=== PATIENT | female | born 1960 | race Caucasian/White ===

== ENCOUNTER → 2017-01-13 | Outpatient (CLI) | payer OTHER ==
[2017-01-13 17:48] LABS: GLUCOSE,FASTING 121 mg/dl (70-99)
[2017-01-14 06:24] LABS: ESTIMATED AVERAGE GLUCOSE 137 mg/dl; HA1C FLAG Normal (Normal)
== END | disposition home or self-care (01) ==
LOC: C.LABBFT 12:29
PROVIDERS: ATTEND Psychiatry & Neurology Psychiatry
DX: F25.0 Schizoaffective disorder, bipolar type (principal); F41.1 Generalized anxiety disorder; Z79.899 Other long term (current) drug therapy

== ENCOUNTER 2021-09-23 16:58 | Inpatient (IN) ==
[2021-09-23] MEDS ORDERED: ONDANSETRON INJ 2 MG/ML 2 ML VIAL IV STA (17:57)
--- NOTE | 2021-09-23 18:03 | Emergency Department Note ---
Impression & Plan SOB (shortness of breath), Abdominal pain, Ascites, Liver metastases, Malignancy, Tachycardia ED Provider Note NAME: CLOVIS MOORE AGE: 61 SEX: F : 1960 ARRIVES VIA: Walk-In INFORMANT: [Patient] ED PROVIDER(S): [Adarsh Harper MD] CHIEF COMPLAINT: Shortness of breath, abdominal distention HISTORY OF PRESENT ILLNESS: The patient is a 61-year-old female who presents to the ED with complaints of 1 month of symptoms. She has developed abdominal distention, diarrhea, urinary and stool incontinence. She feels bloated. She has had nausea and vomiting. I n the last week or so, she has developed some shortness of breath. She did test negative for Covid as an outpatient. She has not had fever. She is concerned about her liver as the cause of her symptoms. Of note, the patient only speaks Latvian and the translation line was used. REVIEW OF SYSTEMS: See HPI for pertinent positives and negatives. A total of ten systems were reviewed and were otherwise negative. PMHx/PSHx: See Below SOCIAL HISTORY: See Below. PHYSICAL EXAM: GENERAL: Patient is in no acute distress. HEENT: No acute trauma, normocephalic atraumatic, mucous membranes moist, no nasal congestion, no scleral icterus. NECK: No stridor, no adenopathy, no meningismus, trachea is midline. LUNGS: Increased respiratory rate. The patient does seem short of breath with speaking. Lungs are clear bilaterally and equal bilaterally. HEART: Mildly tachycardic, regular rhythm, no murmurs. ABDOMEN: Firm and distended abdomen. There is some dullness with percussion. Diffusely mildly tender. EXTREMITIES: No cyanosis or edema, full range of motion of all the joints wit hout pain or difficulty, no signs for acute trauma. NEUROLOGIC: Oriented x 3, no acute motor or sensory deficits, no focal weakness. SKIN: No rash, no jaundice, no diaphoresis. DIFFERENTIAL DIAGNOSIS: Appendicitis, ovarian cyst, ovarian torsion, ectopic , malignancy, ascites, UTI, obstruction, mesenteric ischemia, aortic pathology, inflammatory bowel disease, renal colic, PUD, pancreatitis, biliary pathology, hernia, volvulus, constipation, as well as other pathologies. EMERGENCY DEPARTMENT COURSE/PROCEDURES: ECG: Indication was shortness of breath. The ECG shows a sinus tachycardia with a rate of 117. There are inverted T waves in the inferior and lateral leads. No ST elevation. No PVCs. The QTc is 457. Compared to an ECG from 04 April 1997, the inverted T wave findings have progressed. The rate has increased. Continuous Cardiac Monitoring: An order was placed for continuous cardiac monitoring. The monitor shows a rate of 110 with sinus tachycardia. Critical Care Note: I have personally spent 48 minutes of critical care time in the direct management of this patient. This includes bedside care, interpretation of diagnostic studies, and testing, discussion with consultants, patient, and family members, and other required patient management activities. This 48 minutes is in excess of all separately billable procedures. MEDICAL DECISION MAKING: There is a mild leukocytosis, this could be consistent with infection or the stress of her situation. There is a normal hemoglobin and platelet count. No coagulopathy. Potassium was a bit low at 3.2, not in need of emergent correction. No renal failure. Lactic acid level was elevated consistent with dehydration or possibly infection. Liver enzyme elevation was noted. No evidence for pancreatitis. The patient appeared to be in a euthyroid state. ECG showed a sinus tachycardia, no ST elevation. Cardiac enzyme testing x1 is not consistent with acute cardiac injury. Urinalysis shows some contamination, no obvious infection. Covid testing returned negative. Chest x-ray did not show pneumonia or CHF. No free air. Abdominal and pelvis CT showed ascites as well as liver mets. A probable ovarian cancer was seen. No bowel obstruction. No free air. The patient presented with significant abdominal distention, shortness of breath. She complained of loss of her bowel and urine. The patient had a Gillespie catheter placed. She did not have any significant urinary retention. She received IV Zofran for nausea. The patient is in need of a hospital stay. She appears to have a malignancy as the cause of her complaints. Ovarian malignancy was a real concern with metastases to the liver. Further oncologic work-up is warranted. I suspect her difficulty breathing is actually secondary to diaphragm elevation from her ascites and abdominal distention. I spoke to the patient through the translation line. I did speak with the home health care case manager. The on-call hospitalist was consulted. Past Med/Surg History Medical History Impaired fasting glucose Morbid obesity Schizophrenia Tinnitus Social History Smoking Status: Never smoker Feels Safe at Home: Yes Allergies Allergies Allergy/AdvReac Type Severity Reaction Status Date / Time No Known Drug Allergies Allergy Unknown Verified 09/23/21 17:56 Home Meds Home Medications Medication Instructions Recorded Confirmed fluphenazine HCl 5 mg tablet 5 mg PO AMHS tab 12/10/18 09/23/21 trihexyphenidyl 5 mg tablet 7.5 mg PO DAILY tab 12/10/18 09/23/21 Results & Data (ED) Vital Signs Vital Signs - 24 hr 09/23/21 17:00 09/23/21 18:03 09/23/21 18:23 Temperature 36.8 C Temperature Source Temporal Artery Scan Pulse Rate 110 H 120 H Pulse Rate [Apical] Pulse Rate from SpO2 Sensor Pulse Rhythm Regular Pulse Rhythm [Apical] Pulse Strength Normal Pulse Strength [Apical] Respiratory Rate 18 27 H Respiratory Effort / Characteristics Non-Labored Spontaneous Respiratory Depth Normal Respiratory Pattern Regular Blood Pressure 154/92 H Blood Pressure [Right Arm] Blood Pressure Mean 112 Blood Pressure Mean [Right Arm] Blood Pressure Position Sitting Blood Pressure Position [Right Arm] Pulse Oximetry 96 95 Oxygen Delivery Method Room Air Room Air Oxygen Flow Rate Sepsis Recent Fever Within 48 Hours No Sepsis New/Unexplained Change in Mental Status N/A Sepsis Action Taken by Nursing No Action Required 09/23/21 18:30 09/23/21 18:40 09/23/21 18:50 Temperature Temperature Source Pulse Rate 114 H 113 H 111 H Pulse Rate [Apical] Pulse Rate from SpO2 Sensor 112 H 114 H Pulse Rhythm Pulse Rhythm [Apical] Pulse Strength Pulse Strength [Apical] Respiratory Rate 34 H 26 H 21 Respiratory Effort / Characteristics Non-Labored Respiratory Depth Normal Respiratory Pattern Regular Blood Pressure Blood Pressure [Right Arm] Blood Pressure Mean Blood Pressure Mean [Right Arm] Blood Pressure Position Blood Pressure Position [Right Arm] Pulse Oximetry 95 96 Oxygen Delivery Method Room Air Oxygen Flow Rate 0 Sepsis Recent Fever Within 48 Hours Sepsis New/Unexplained Change in Mental Status Sepsis Action Taken by Nursing 09/23/21 19:00 09/23/21 19:10 09/23/21 19:20 Temperature Temperature Source Pulse Rate 110 H 108 H 109 H Pulse Rate [Apical] Pulse Rate from SpO2 Sensor 111 H 108 H 109 H Pulse Rhythm Pulse Rhythm [Apical] Pulse Strength Pulse Strength [Apical] Respiratory Rate 24 26 H 22 Respiratory Effort / Characteristics Respiratory Depth Respiratory Pattern Blood Pressure Blood Pressure [Right Arm] Blood Pressure Mean Blood Pressure Mean [Right Arm] Blood Pressure Position Blood Pressure Position [Right Arm] Pulse Oximetry 96 95 95 Oxygen Delivery Method Oxygen Flow Rate Sepsis Recent Fever Within 48 Hours Sepsis New/Unexplained Change in Mental Status Sepsis Action Taken by Nursing 09/23/21 19:30 09/23/21 19:40 09/23/21 19:50 Temperature Temperature Source Pulse Rate 110 H 108 H 108 H Pulse Rate [Apical] Pulse Rate from SpO2 Sensor 110 H 108 H 108 H Pulse Rhythm Pulse Rhythm [Apical] Pulse Strength Pulse Strength [Apical] Respiratory Rate 30 H 37 H 31 H Respiratory Effort / Characteristics Respiratory Depth Respiratory Pattern Blood Pressure Blood Pressure [Right Arm] Blood Pressure Mean Blood Pressure Mean [Right Arm] Blood Pressure Position Blood Pressure Position [Right Arm] Pulse Oximetry 95 94 94 Oxygen Delivery Method Oxygen Flow Rate Sepsis Recent Fever Within 48 Hours Sepsis New/Unexplained Change in Mental Status Sepsis Action Taken by Nursing 09/23/21 20:00 09/23/21 20:29 09/23/21 20:30 Temperature Temperature Source Pulse Rate 108 H 117 H 118 H Pulse Rate [Apical] Pulse Rate from SpO2 Sensor 104 H Pulse Rhythm Pulse Rhythm [Apical] Pulse Strength Pulse Strength [Apical] Respiratory Rate 24 25 H 17 Respiratory Effort / Characteristics Respiratory Depth Respiratory Pattern Blood Pressure Blood Pressure [Right Arm] Blood Pressure Mean Blood Pressure Mean [Right Arm] Blood Pressure Position Blood Pressure Position [Right Arm] Pulse Oximetry 94 Oxygen Delivery Method Oxygen Flow Rate Sepsis Recent Fever Within 48 Hours Sepsis New/Unexplained Change in Mental Status Sepsis Action Taken by Nursing 09/23/21 20:40 09/23/21 20:50 09/23/21 20:58 Temperature Temperature Source Pulse Rate 111 H 107 H Pulse Rate [Apical] 110 H Pulse Rate from SpO2 Sensor Pulse Rhythm Pulse Rhythm [Apical] Regular Pulse Strength Pulse Strength [Apical] Normal Respiratory Rate 28 H 23 24 Respiratory Effort / Characteristics Non-Labored Respiratory Depth Normal Respiratory Pattern Blood Pressure Blood Pressure [Right Arm] 132/90 Blood Pressure Mean Blood Pressure Mean [Right Arm] 104 Blood Pressure Position Blood Pressure Position [Right Arm] Lying Pulse Oximetry 94 Oxygen Delivery Method Room Air Oxygen Flow Rate Sepsis Recent Fever Within 48 Hours Sepsis New/Unexplained Change in Mental Status Sepsis Action Taken by Nursing 09/23/21 21:00 09/23/21 21:10 Temperature Temperature Source Pulse Rate 105 H 104 H Pulse Rate [Apical] Pulse Rate from SpO2 Sensor 105 H 104 H Pulse Rhythm Pulse Rhythm [Apical] Pulse Strength Pulse Strength [Apical] Respiratory Rate 26 H 26 H Respiratory Effort / Characteristics Respiratory Depth Respiratory Pattern Blood Pressure Blood Pressure [Right Arm] Blood Pressure Mean Blood Pressure Mean [Right Arm] Blood Pressure Position Blood Pressure Position [Right Arm] Pulse Oximetry 93 94 Oxygen Delivery Method Oxygen Flow Rate Sepsis Recent Fever Within 48 Hours Sepsis New/Unexplained Change in Mental Status Sepsis Action Taken by Longterm Medications Current Medication List: was personally reviewed by me Laboratory Data Attestation: I reviewed the patient's lab results. Result diagrams: 09/23/21 18:20 09/23/21 18:20 Lab Results 09/23/21 09/23/21 09/23/21 Range/Units 18:20 18: 18:20 WBC 13.07 H (4.8-10.8) K/uL RBC 4.61 (4.2-5.4) M/uL Hgb 13.0 (12.0-16.0) g/dL Hct 39.0 (37-47) % MCV 84.6 (80-100) fL MCH 28.2 (25-34) pg MCHC 33.3 (32-36) g/dL RDW Std Deviation 49.1 H (36.4-46.3) fL RDW Coeff of Cesia 15.9 H (11.5-14.5) % Plt Count 351 (130-400) K/uL MPV 10.8 H (7.4-10.4) fL Immature Gran % (Auto) 0.3 % Neut % (Auto) 86.7 % Lymph % (Auto) 6.4 % [place] % (Auto) 6.2 % Eos % (Auto) 0.2 % Baso % (Auto) 0.2 % Neut # (Auto) 11.34 H (1.4-6.5) K/uL Lymph # (Auto) 0.84 L (1.2-3.4) K/uL [place] # (Auto) 0.81 H (0.11-0.59) K/uL Eos # (Auto) 0.02 (0-0.5) K/uL Baso # (Auto) 0.02 (0-0.2) K/uL Immature Gran # (Auto) 0.04 H (0.00-0.02) K/uL PT 12.0 (9.0-12.0) Seconds INR 1.1 (0.9-1.1) APTT 27.1 (21.0-31.0) Seconds PTT Ratio 1.0 Sodium 138 (136-145) mmol/L Potassium 3.2 L (3.5-5.1) mmol/L Chloride 104 (98-107) mmol/L Carbon Dioxide 20 L (21-32) mmol/L Anion Gap 14 H (3-11) BUN 18 (6-23) mg/dl Creatinine 0.82 (0.6-1.2) mg/dl Est Cr Clr Drug Dosing Not Reportable Est GFR ( Amer) 90.8 ml/min Est GFR (Non-Af Amer) 78.3 ml/min BUN/Creatinine Ratio 22.0 H (10-20) Glucose 182 H (70-99(Fasting)) mg/dl Lactate (0.4-2.0) mmol/L Calcium 9.7 (8.5-10.1) mg/dl Magnesium (1.7-2.4) mg/dl Total Bilirubin 2.3 H (0.2-1.0) mg/dl AST 58 H (13-39) U/L ALT 25 (7-52) U/L Alkaline Phosphatase 476 H (34-104) U/L Troponin I 0.03 (0-0.04) ng/ml Total Protein 7.8 (6.0-8.3) gm/dl Albumin 3.8 (3.4-5.0) gm/dl Globulin 4.0 (2.5-4.0) gm/dl Albumin/Globulin Ratio 1.0 (0.9-2) Lipase 21 (11-82) U/L TSH (0.300-4.500) uIu/ml Urine Color Urine Appearance (Clear) Urine pH (4.5-7.5) Ur Specific [place] (1.000-1.030) Urine Protein (Negative) Urine Glucose (UA) (Negative) Urine Ketones (Negative) Urine Blood (Negative) Urine Nitrite (Negative) Urine Bilirubin (Negative) Urine Urobilinogen (Negative) Ur Leukocyte Esterase (Negative) Urine WBC (Auto) (0-5) /hpf Urine RBC (Auto) (0-4) /hpf U Hyaline Cast (Auto) (0-5) /lpf U Epithel Cells (Auto) (0-5) /lpf Urine Bacteria (Auto) (Negative) Ur Renal Epithelial Cell Granular Casts (0) /lpf Urine Yeast SARS-CoV-2, RNA, NAAT (NEGATIVE) 09/23/21 09/23/21 09/23/21 Range/Units 18:20 18:20 18:20 WBC (4.8-10.8) K/uL RBC (4.2-5.4) M/uL Hgb (12.0-16.0) g/dL Hct (37-47) % MCV (80-100) fL MCH (25-34) pg MCHC (32-36) g/dL RDW Std Deviation (36.4-46.3) fL RDW Coeff of Cesia (11.5-14.5) % Plt Count (130-400) K/uL MPV (7.4-10.4) fL Immature Gran % (Auto) % Neut % (Auto) % Lymph % (Auto) % [place] % (Auto) % Eos % (Auto) % Baso % (Auto) % Neut # (Auto) (1.4-6.5) K/uL Lymph # (Auto) (1.2-3.4) K/uL [place] # (Auto) (0.11-0.59) K/uL Eos # (Auto) (0-0.5) K/uL Baso # (Auto) (0-0.2) K/uL Immature Gran # (Auto) (0.00-0.02) K/uL PT (9.0-12.0) Seconds INR (0.9-1.1) APTT (21.0-31.0) Seconds PTT Ratio Sodium (136-145) mmol/L Potassium (3.5-5.1) mmol/L Chloride (98-107) mmol/L Carbon Dioxide (21-32) mmol/L Anion Gap (3-11) BUN (6-23) mg/dl Creatinine (0.6-1.2) mg/dl Est Cr Clr Drug Dosing Est GFR ( Amer) ml/min Est GFR (Non-Af Amer) ml/min BUN/Creatinine Ratio (10-20) Glucose (70-99(Fasting)) mg/dl Lactate 2.9 H* (0.4-2.0) mmol/L Calcium (8.5-10.1) mg/dl Magnesium (1.7-2.4) mg/dl Total Bilirubin (0.2-1.0) mg/dl AST (13-39) U/L ALT (7-52) U/L Alkaline Phosphatase (34-104) U/L Troponin I (0-0.04) ng/ml Total Protein (6.0-8.3) gm/dl Albumin (3.4-5.0) gm/dl Globulin (2.5-4.0) gm/dl Albumin/Globulin Ratio (0.9-2) Lipase (11-82) U/L TSH 1.729 (0.300-4.500) uIu/ml Urine Color Urine Appearance (Clear) Urine pH (4.5-7.5) Ur Specific [place] (1.000-1.030) Urine Protein (Negative) Urine Glucose (UA) (Negative) Urine Ketones (Negative) Urine Blood (Negative) Urine Nitrite (Negative) Urine Bilirubin (Negative) Urine Urobilinogen (Negative) Ur Leukocyte Esterase (Negative) Urine WBC (Auto) (0-5) /hpf Urine RBC (Auto) (0-4) /hpf U Hyaline Cast (Auto) (0-5) /lpf U Epithel Cells (Auto) (0-5) /lpf Urine Bacteria (Auto) (Negative) Ur Renal Epithelial Cell Granular Casts (0) /lpf Urine Yeast SARS-CoV-2, RNA, NAAT NEGATIVE (NEGATIVE) 09/23/21 09/23/21 Range/Units 18:20 18:20 WBC (4.8-10.8) K/uL RBC (4.2-5.4) M/uL Hgb (12.0-16.0) g/dL Hct (37-47) % MCV (80-100) fL MCH (25-34) pg MCHC (32-36) g/dL RDW Std Deviation (36.4-46.3) fL RDW Coeff of Cesia (11.5-14.5) % Plt Count (130-400) K/uL MPV (7.4-10.4) fL Immature Gran % (Auto) % Neut % (Auto) % Lymph % (Auto) % [place] % (Auto) % Eos % (Auto) % Baso % (Auto) % Neut # (Auto) (1.4-6.5) K/uL Lymph # (Auto) (1.2-3.4) K/uL [place] # (Auto) (0.11-0.59) K/uL Eos # (Auto) (0-0.5) K/uL Baso # (Auto) (0-0.2) K/uL Immature Gran # (Auto) (0.00-0.02) K/uL PT (9.0-12.0) Seconds INR (0.9-1.1) APTT (21.0-31.0) Seconds PTT Ratio Sodium (136-145) mmol/L Potassium (3.5-5.1) mmol/L Chloride (98-107) mmol/L Carbon Dioxide (21-32) mmol/L Anion Gap (3-11) BUN (6-23) mg/dl Creatinine (0.6-1.2) mg/dl Est Cr Clr Drug Dosing Est GFR ( Amer) ml/min Est GFR (Non-Af Amer) ml/min BUN/Creatinine Ratio (10-20) Glucose (70-99(Fasting)) mg/dl Lactate (0.4-2.0) mmol/L Calcium (8.5-10.1) mg/dl Magnesium 2.0 (1.7-2.4) mg/dl Total Bilirubin (0.2-1.0) mg/dl AST (13-39) U/L ALT (7-52) U/L Alkaline Phosphatase (34-104) U/L Troponin I (0-0.04) ng/ml Total Protein (6.0-8.3) gm/dl Albumin (3.4-5.0) gm/dl Globulin (2.5-4.0) gm/dl Albumin/Globulin Ratio (0.9-2) Lipase (11-82) U/L TSH (0.300-4.500) uIu/ml Urine Color [place] Urine Appearance Cloudy A (Clear) Urine pH 5.5 (4.5-7.5) Ur Specific [place] 1.028 (1.000-1.030) Urine Protein 1+ H (Negative) Urine Glucose (UA) Negative (Negative) Urine Ketones Trace H (Negative) Urine Blood Negative (Negative) Urine Nitrite Positive A (Negative) Urine Bilirubin 3+ H (Negative) Urine Urobilinogen Positive H (Negative) Ur Leukocyte Esterase 1+ H (Negative) Urine WBC (Auto) 5-10 H (0-5) /hpf Urine RBC (Auto) 5-10 H (0-4) /hpf U Hyaline Cast (Auto) 5-10 H (0-5) /lpf U Epithel Cells (Auto) >30 H (0-5) /lpf Urine Bacteria (Auto) Negative (Negative) Ur Renal Epithelial Cell Not Reportable Granular Casts 1-5 H (0) /lpf Urine Yeast Not Reportable SARS-CoV-2, RNA, NAAT (NEGATIVE) Administered Medications Discontinued Medications Ioversol (Optiray 320 100ml) 95 ml IV ONCE ONE Stop: 09/23/21 20:28 Last Admin: 09/23/21 20:28 Dose: 95 ml Documented by: [id number] Ondansetron HCl (Ondansetron Inj 2 Mg/Ml 2 Ml Vial) 4 mg IV NOW STA Stop: 09/23/21 17:58 Last Admin: 09/23/21 18:35 Dose: 4 mg Documented by: [id number] Imaging Data Radiologist's Impression: Chest X-Ray 09/23/21 17:57 SINGLE VIEW CHEST CLINICAL HISTORY: Dyspnea. FINDINGS: An AP, portable, upright chest radiograph is obtained. No prior studies are available for comparison at the time of dictation. The cardiomediastinal silhouette is unremarkable. There are low lung volumes with elevation of the right hemidiaphragm and bibasilar atelectasis. No airspace consolidation typical for pneumonia or large pleural effusion is identified. No pneumothorax is seen. The skeletal structures are osteopenic. The bony thorax is grossly intact. IMPRESSION: Bibasilar atelectasis with no active disease in the chest. ACT 112: Negative or not required by law. Electronically signed by: Adarsh Rausch M.D. 09/23/2021 6:40 PM Abdominal and pelvis CT with IV contrast: Enlarged heterogeneous liver containing numerous low-density lesions concerning for metastasis. There is a mass within the left adnexa suspicious for neoplasm. There is an enlarged left retroperitoneal lymph node, ascites was noted. The urinary bladder was decompressed. No bowel obstruction. Discharge Plan Visit Data Chief Complaint: Shortness of Breath/Dyspnea Stated Complaint: DIARRHEA, SOB ED Provider: Adarsh Harper Discharge Problem: SOB (shortness of breath), Abdominal pain, Ascites, Liver metastases, Malignancy, Tachycardia Patient Disposition: Admitted As Inpatient Condition: Fair Forms Stand Alone Forms: [facility] [employer] Prescriptions Prescriptions: No Action fluphenazine HCl 5 mg tablet 5 mg PO AMHS RF: 0 trihexyphenidyl 5 mg tablet 7.5 mg PO DAILY RF: 0 Referrals Referrals: PCP,NO [Physician] -
--- NOTE | 2021-09-23 18:41 | XRay Report ---
SINGLE VIEW CHEST CLINICAL HISTORY: Dyspnea. FINDINGS: An AP, portable, upright chest radiograph is obtained. No prior studies are available for c omparison at the time of dictation. The cardiomediastinal silhouette is unremarkable. There are low lung volumes with elevation of the right hemidiaphragm and bibasilar atelectasis. No airspace consoli dation typical for pneumonia or large pleural effusion is identified. No pneumothorax is seen. The sk eletal structures are osteopenic. The bony thorax is grossly intact. IMPRESSION: Bibasilar atelectasis with no active disease in the chest. ACT 112: Negative or not required by law. Electronically signed by: Adarsh Rausch M.D. 09/23/2021 6:40 PM
[2021-09-23 18:45] LABS: Basophils # (auto) 0.02 K/uL (0-0.2); Basophils % (auto) 0.2 %; Eosinophils # (auto) 0.02 K/uL (0-0.5); Eosinophils % (auto) 0.2 %; Immature Granulocytes # (auto) 0.04 K/uL (0.00-0.02); Immature Granulocytes % (auto) 0.3 %; Lymphocytes # (auto) 0.84 K/uL (1.2-3.4); Lymphocytes % (auto) 6.4 %; Mean Corpuscular Hemoglobin 28.2 pg (25-34); Mean Corpuscular Hgb Conc 33.3 g/dL (32-36); Mean Corpuscular Volume 84.6 fL (80-100); Mean Platelet Volume 10.8 fL (7.4-10.4); Monocytes # (auto) 0.81 K/uL (0.11-0.59); Monocytes % (auto) 6.2 %; Neutrophils # (auto) 11.34 K/uL (1.4-6.5); Neutrophils % (auto) 86.7 %; Platelet Count 351 K/uL (130-400); RDW Coefficient of Variation 15.9 % (11.5-14.5); RDW Standard Deviation 49.1 fL (36.4-46.3); Red Blood Count 4.61 M/uL (4.2-5.4); White Blood Count 13.07 K/uL (4.8-10.8)
[2021-09-23 18:54] LABS: Appearance Urine Cloudy (Clear); Bacteria Urine Automated Negative (Negative); Bilirubin Urine 3+ (Negative); Blood Urine Negative (Negative); Color Urine Orange; Epithelial Cell Urine Auto >30 /lpf (0-5); Glucose Urine UA Negative (Negative); Ketones Urine Trace (Negative); Leukocyte Esterase Urine 1+ (Negative); Nitrite Urine Positive (Negative); Protein Urine 1+ (Negative); Specific Gravity Urine 1.028 (1.000-1.030); Urobilinogen Urine Positive (Negative); pH Urine 5.5 (4.5-7.5)
[2021-09-23 18:56] LABS: INR 1.1 (0.9-1.1); Partial Thromboplastin Time 27.1 Seconds (21.0-31.0)
[2021-09-23 19:08] LABS: Alanine Aminotransferase 25 U/L (7-52); Albumin Level 3.8 gm/dl (3.4-5.0); Alkaline Phosphatase 476 U/L (34-104); Anion Gap 14 (3-11); Aspartate Aminotransferase 58 U/L (13-39); Bilirubin,Total 2.3 mg/dl (0.2-1.0); Blood Urea Nitrogen 18 mg/dl (6-23); Calcium 9.7 mg/dl (8.5-10.1); Carbon Dioxide 20 mmol/L (21-32); Chloride 104 mmol/L (98-107); Est GFR (African American) 90.8 ml/min; Est GFR (Non-African American) 78.3 ml/min; Glucose 182 mg/dl (70-99(Fasting)); Lipase 21 U/L (11-82); Potassium 3.2 mmol/L (3.5-5.1); Sodium 138 mmol/L (136-145); Total Protein 7.8 gm/dl (6.0-8.3)
[2021-09-23 19:10] LABS: Troponin I 0.03 ng/ml (0-0.04)
[2021-09-23] MEDS ORDERED: OPTIRAY 320 100ml IV ONE (20:27)
--- NOTE | 2021-09-23 22:59 | History & Physical Report ---
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 after midnight Zofran 4 mg IV every 6 hours as needed Famotidine 20 mg IV every 12 hours NSS + KCl 20 mEq at 100 mils per hour Consult radiology for diagnostic/therapeutic paracentesis Order CA-125 and CA 19-9 Serial CBC with differential, chemistry profile Will need oncology consult (2) Liver metastases: Plan: See above (3) Schizophrenia: Plan: Continue fluphenazine and trihexyphenidyl (4) Impaired fasting glucose: Plan: Placed on Accu-Cheks before meals and at bedtime with NovoLog coverage per scale Check hemoglobin A1c (5) Ascites: Plan: Ordering ultrasound-guided diagnostic and therapeutic paracentesis by radiology (6) Hypokalemia: Plan: IV fluids as noted above (7) Adrenal abnormality: Plan: 7.8 cm right adrenal myelolipoma History of Present Illness Chief Complaint: The patient presents to the emergency department due to inability to control bowel and bladder function as noted by her sister Primary Care Provider: Darcy Araujo DO The patient is a 61-year-old [place] only speaking female with a past medical history including schizophrenia and obesity who presents to the emergency department with 1 month of worsening abdominal distention, diarrhea and urinary and stool incontinence. Her sister acts as mold polisher during my examination. Allergies Allergy/AdvReac Type Severity Reaction Status Date / Time No Known Drug Allergies Allergy Unknown Verified 09/23/21 17:56 Home Medications Medication Instructions Recorded Confirmed Type fluphenazine HCl 5 mg tablet 5 mg PO AMHS tab 12/10/18 09/23/21 History trihexyphenidyl 5 mg tablet 7.5 mg PO DAILY tab 12/10/18 09/23/21 History Past Med/Surg History Medical History Impaired fasting glucose Morbid obesity Schizophrenia Tinnitus Social History Smoking Status: Never smoker Feels Safe at Home: Yes Review of Systems Review of Systems: As translated through the patient's sister, the patient denies chest pain, palpitations, cough, lower extremity swelling, sore throat, fevers, chills, sweats, nausea, vomiting blood in urine or stool, lightheadedness, dizziness, headache, memory loss, loss of consciousness, rash, abnormal bruising or bleeding, imbalance, focal weakness, numbness or tingling in arms or legs, neck pain, or night sweats. The review of systems is otherwise negative other than for that already noted above, and at least 10 systems have been reviewed. Physical Exam Physical Exam: The patient is awake, alert and oriented 3, well developed and well nourished, normocephalic and atraumatic, lying in bed and in no acute distress. HEENT--PERRL, EOMI, mucous membranes and oropharynx normal Neck--supple. No JVD. No bruits. Thyroid normal, trachea midline, no adenopathy. Heart--normal S1 and S2. No murmurs, rubs or gallops. Lungs--clear bilaterally, no respiratory distress, no accessory muscle use. Abdomen--normal bowel sounds and soft. Mild generalized tenderness. Morbidly obese. Extremities--no cyanosis or clubbing. No edema. Dermatologic--no rash Neurologic--cranial nerves II through XII grossly intact. Rheumatologic--limited exam Psychiatric--normal affect. Results & Data Results & Data ([facility]) Vital Signs (Past 12 Hours) Vital Signs Temp Pulse Pulse Resp BP BP Pulse Ox 09/23/21 21:10 104 H 26 H 94 09/23/21 21:00 105 H 26 H 93 09/23/21 20:58 110 H 24 132/90 94 09/23/21 20:50 107 H 23 09/23/21 20:40 111 H 28 H 09/23/21 20:30 118 H 17 09/23/21 20:29 117 H 25 H 09/23/21 20:00 108 H 24 94 09/23/21 19:50 108 H 31 H 94 09/23/21 19:40 108 H 37 H 94 09/23/21 19:30 110 H 30 H 95 09/23/21 19:20 109 H 22 95 09/23/21 19:10 108 H 26 H 95 09/23/21 19:00 110 H 24 96 09/23/21 18:50 111 H 21 96 09/23/21 18:40 113 H 26 H 95 09/23/21 18:30 114 H 34 H 09/23/21 18:23 120 H 27 H 09/23/21 18:03 95 09/23/21 17:00 36.8 C 110 H 18 154/92 H 96 Laboratory Results Laboratory Results WBC 13.07 K/uL (4.8-10.8) H 09/23/21 18:20 RBC 4.61 M/uL (4.2-5.4) 09/23/21 18:20 Hgb 13.0 g/dL (12.0-16.0) 09/23/21 18:20 Hct 39.0 % (37-47) 09/23/21 18:20 MCV 84.6 fL (80-100) 09/23/21 18:20 MCH 28.2 pg (25-34) 09/23/21 18:20 MCHC 33.3 g/dL (32-36) 09/23/21 18:20 RDW Std Deviation 49.1 fL (36.4-46.3) H 09/23/21 18:20 RDW Coeff of Cesia 15.9 % (11.5-14.5) H 09/23/21 18:20 Plt Count 351 K/uL (130-400) 09/23/21 18:20 MPV 10.8 fL (7.4-10.4) H 09/23/21 18:20 Immature Gran % (Auto) 0.3 % 09/23/21 18:20 Neut % (Auto) 86.7 % 09/23/21 18:20 Lymph % (Auto) 6.4 % 09/23/21 18:20 [place] % (Auto) 6.2 % 09/23/21 18:20 Eos % (Auto) 0.2 % 09/23/21 18:20 Baso % (Auto) 0.2 % 09/23/21 18:20 Neut # (Auto) 11.34 K/uL (1.4-6.5) H 09/23/21 18:20 Lymph # (Auto) 0.84 K/uL (1.2-3.4) L 09/23/21 18:20 [place] # (Auto) 0.81 K/uL (0.11-0.59) H 09/23/21 18:20 Eos # (Auto) 0.02 K/uL (0-0.5) 09/23/21 18:20 Baso # (Auto) 0.02 K/uL (0-0.2) 09/23/21 18:20 Immature Gran # (Auto) 0.04 K/uL (0.00-0.02) H 09/23/21 18:20 PT 12.0 Seconds (9.0-12.0) 09/23/21 18:20 INR 1.1 (0.9-1.1) 09/23/21 18:20 APTT 27.1 Seconds (21.0-31.0) 09/23/21 18:20 PTT Ratio 1.0 09/23/21 18:20 Sodium 138 mmol/L (136-145) 09/23/21 18:20 Potassium 3.2 mmol/L (3.5-5.1) L 09/23/21 18:20 Chloride 104 mmol/L (98-107) 09/23/21 18:20 Carbon Dioxide 20 mmol/L (21-32) L 09/23/21 18:20 Anion Gap 14 (3-11) H 09/23/21 18:20 BUN 18 mg/dl (6-23) 09/23/21 18:20 Creatinine 0.82 mg/dl (0.6-1.2) 09/23/21 18:20 Est Cr Clr Drug Dosing Not Reportable 09/23/21 18:20 Est GFR ( Amer) 90.8 ml/min 09/23/21 18:20 Est GFR (Non-Af Amer) 78.3 ml/min 09/23/21 18:20 BUN/Creatinine Ratio 22.0 (10-20) H 09/23/21 18:20 Glucose 182 mg/dl (70-99(Fasting)) H 09/23/21 18:20 Lactate 2.9 mmol/L (0.4-2.0) H* 09/23/21 18:20 Calcium 9.7 mg/dl (8.5-10.1) 09/23/21 18:20 Magnesium 2.0 mg/dl (1.7-2.4) 09/23/21 18:20 Total Bilirubin 2.3 mg/dl (0.2-1.0) H 09/23/21 18:20 AST 58 U/L (13-39) H 09/23/21 18:20 ALT 25 U/L (7-52) 09/23/21 18:20 Alkaline Phosphatase 476 U/L (34-104) H 09/23/21 18:20 Troponin I 0.03 ng/ml (0-0.04) 09/23/21 18:20 Total Protein 7.8 gm/dl (6.0-8.3) 09/23/21 18:20 Albumin 3.8 gm/dl (3.4-5.0) 09/23/21 18:20 Globulin 4.0 gm/dl (2.5-4.0) 09/23/21 18:20 Albumin/Globulin Ratio 1.0 (0.9-2) 09/23/21 18: Lipase 21 U/L (11-82) 09/23/21 18: TSH 1.729 uIu/ml (0.300-4.500) 09/23/21 18:20 Urine Color [place] 09/23/21 18:20 Urine Appearance Cloudy (Clear) A 09/23/21 18:20 Urine pH 5.5 (4.5-7.5) 09/23/21 18:20 Ur Specific [place] 1.028 (1.000-1.030) 09/23/21 18:20 Urine Protein 1+ (Negative) H 09/23/21 18:20 Urine Glucose (UA) Negative (Negative) 09/23/21 18:20 Urine Ketones Trace (Negative) H 09/23/21 18:20 Urine Blood Negative (Negative) 09/23/21 18:20 Urine Nitrite Positive (Negative) A 09/23/21 18:20 Urine Bilirubin 3+ (Negative) H 09/23/21 18:20 Urine Urobilinogen Positive (Negative) H 09/23/21 18:20 Ur Leukocyte Esterase 1+ (Negative) H 09/23/21 18:20 Urine WBC (Auto) 5-10 /hpf (0-5) H 09/23/21 18:20 Urine RBC (Auto) 5-10 /hpf (0-4) H 09/23/21 18:20 U Hyaline Cast (Auto) 5-10 /lpf (0-5) H 09/23/21 18:20 U Epithel Cells (Auto) >30 /lpf (0-5) H 09/23/21 18:20 Urine Bacteria (Auto) Negative (Negative) 09/23/21 18:20 Ur Renal Epithelial Cell Not Reportable 09/23/21 18:20 Granular Casts 1-5 /lpf (0) H 09/23/21 18:20 Urine Yeast Not Reportable 09/23/21 18:20 SARS-CoV-2, RNA, NAAT NEGATIVE (NEGATIVE) 09/23/21 18:20 Impressions Chest X-Ray 09/23/21 17:57 SINGLE VIEW CHEST CLINICAL HISTORY: Dyspnea. FINDINGS: An AP, portable, upright chest radiograph is obtained. No prior studies are available for comparison at the time of dictation. The cardiomediastinal silhouette is unremarkable. There are low lung volumes with elevation of the right hemidiaphragm and bibasilar atelectasis. No airspace consolidation typical for pneumonia or large pleural effusion is identified. No pneumothorax is seen. The skeletal structures are osteopenic. The bony thorax is grossly intact. IMPRESSION: Bibasilar atelectasis with no active disease in the chest. ACT 112: Negative or not required by law. Electronically signed by: Adarsh Rausch M.D. 09/23/2021 6:40 PM Diagnostic Findings [facility] Patient: CLOVIS MOORE V (Female) : 64 Status: ER Date: 09/23/21 20:38 Room #: History: ABDOMINAL PAIN/DISTENTION APPENDIX UNKNOWN OPTIRAY 320 95ML EK/DG Slices: [id number] Priors: Tech: Adarsh Harp @ [phone] Exams: CT ABDOMEN & PELVIS With Contrast Contrast: IV Amt: 95ML Accession Numbers: [id number] Referring Physician: REFERRED SELF Preliminary Findings Only See Final Report For Complete Findings CT ABDOMEN & PELVIS With Contrast: Enlarged heterogeneous liver containing numerous low-density lesions with the largest measuring up to 8 cm located in the left hepatic lobe, concerning for liver metastases. 4.4 x 3.3 cm mass containing internal curvilinear calcification in the left adnexa with irregular margins, suspicious for neoplasm such as ovarian carcinoma. Enlarged left retroperitoneal lymph nodes along the course of the left ovarian vein, suspicious for radha metastases. Moderate volume ascites. Urinary bladder is decompressed with a Gillespie catheter in place. 7.8 cm heterogeneous fat-containing right adrenal lesion likely represents an adrenal myelolipoma. No bowel obstruction. Radiologist: Saloni Sidhu M.D. Study ready at 20:50 and initial results transmitted at 21:23 *This report constitutes a preliminary interpretation only. Non-acute findings felt to be unrelated to the clinical presentation may not be discussed in this report. The study will be interpreted and a final report will be generated by the local Radiologist the following shift. To reach the [facility] radiology department call [phone]. If a discrepancy is found between the preliminary and final interpretati ons of this study, please notify us via our Client Portal at [email or web address], under QA Exams. You can also fax this report with a description of the discrepancy, or include the final report, to our daytime fax number [phone]. If faxing, please indicate the severity of discrepancy using one of the following categories: [ ] 1 - Agree/Informational [ ] 2 - Unlikely to Affect Management [ ] 3 - Possible Eventual Change of Management [ ] 4 - Probable Immediate Change of Management For all other patient related information, please fax us at [phone]. [id number] Code Status & VTE Plan Code Status Full code VTE Prophylaxis Plan VTE Prophylaxis will be ordered: Yes PG Care Time/CCT Total # of Minutes Spent Total Time Spent with Patient: Total time spent is greater than 50% in coordination of care (as documented) at patient's floor/unit and/or counseling patient: Coding Level of Care Code 93313 Initial Inpt Care Lvl 3 Diagnoses Ovarian mass, left N83.8 Liver metastases C78.7 Schizophrenia F20.9 Impaired fasting glucose R73.01 Ascites R18.0 Ascites type: malignant Hypokalemia E87.6 Adrenal abnormality E27.9 (1) Ascites Ascites type: malignant Qualified Code(s): R18.0 - Malignant ascites
[2021-09-24] MEDS ORDERED: GLUCAGON FOR INJ 1 MG VIAL SQ PRN (00:50)
[2021-09-24] MEDS ORDERED: GLUCOSE 10 TABS/TUBE PO PRN (00:50)
[2021-09-24] MEDS ORDERED: DEXTROSE 50% 50 ML SYRINGE IV PRN (00:50)
[2021-09-24] MEDS ORDERED: ONDANSETRON INJ 2 MG/ML 2 ML VIAL IV PRN (00:50)
[2021-09-24] MEDS ORDERED: GLUCOSE 40% GEL 15 GM TUBE PO PRN (00:50)
[2021-09-24] MEDS ORDERED: CARBOHYDRATES FOR HYPOGLYCEMIA PO PRN (00:50)
[2021-09-24] MEDS ORDERED: Nursing to Pharmacy Communication SCH ×3 (01:15→17:45)
[2021-09-24] MEDS: FAMOTIDINE 20MG IV PUSH 20 MG/5 ML SYR IV SCH ×3 (02:28→21:29)
[2021-09-24] MEDS: INSULIN ASPART PER UNIT SC SCH ×4 (06:27→22:19)
[2021-09-24 07:38] LABS: Hematocrit (blood only) 33.1 % (37-47); Hemoglobin 10.9 g/dL (12.0-16.0); Mean Corpuscular Hemoglobin 27.7 pg (25-34); Mean Corpuscular Hgb Conc 32.9 g/dL (32-36); Platelet Count 302 K/uL (130-400); RDW Coefficient of Variation 15.9 % (11.5-14.5); RDW Standard Deviation 49.4 fL (36.4-46.3); Red Blood Count 3.94 M/uL (4.2-5.4); White Blood Count 9.78 K/uL (4.8-10.8)
[2021-09-24 07:53] LABS: Albumin Level 3.2 gm/dl (3.4-5.0); BUN Creatinine Ratio 26.2 (10-20); Bilirubin,Total 1.9 mg/dl (0.2-1.0); Calcium 9.1 mg/dl (8.5-10.1); Creatinine Clr Calc Pharmacy 117.9 ml/min; Est GFR (African American) 112.6 ml/min; Est GFR (Non-African American) 97.2 ml/min; Globulin 3.2 gm/dl (2.5-4.0); Potassium 3.4 mmol/L (3.5-5.1); Total Protein 6.4 gm/dl (6.0-8.3)
--- NOTE | 2021-09-24 08:25 | Electrocardiogram Report ---
Test Reason : Blood Pressure : / mmHG Vent. Rate : 117 BPM Atrial Rate : 117 BPM P-R Int : 178 ms QRS Dur : 096 ms QT Int : 328 ms P-R-T Axes : 030 006 -27 degrees QTc Int : 457 ms Sinus tachycardia T wave abnormality, consider inferior ischemia Abnormal ECG When compared with ECG of 04-APR-1997 19:33, T wave inversion more evident in Inferior leads Confirmed by Slava Quiroz ([id number]) on 09/24/2021 8:25:17 AM Referred By: REFERRED SELF Confirmed By:Chan Quiroz
[2021-09-24 08:29] LABS: ALC (manual) 1.11 K/uL (1.2-3.4); ANC (manual) 8.24 K/uL (1.4-6.5); Eosinophils # (manual) 0.09 K/uL (0-0.5); Eosinophils % (manual) 0.9 %; Lymphocytes # (manual) 1.11 K/uL (1.2-3.4); Lymphocytes % (manual) 11.3 %; Monocytes # (manual) 0.34 K/uL (0.11-0.59); Monocytes % (manual) 3.5 %; Neutrophils # (manual) 8.24 K/uL (1.4-6.5); Neutrophils % (manual) 84.3 %
[2021-09-24] MEDS: TRIHEXYPHENIDYL HCL 5 MG TAB PO SCH ×2 (08:34→18:07)
[2021-09-24] MEDS: FLUPHENAZINE 5 MG PO SCH ×2 (08:34→18:06)
--- NOTE | 2021-09-24 08:54 | CT Scan Report ---
ABDOMEN AND PELVIS CT WITH IV CONTRAST CT DOSE: 1570.48 mGy.cm HISTORY: Generalized abdominal pain, distention TECHNIQUE: Multiaxial CT images of the abdomen and pelvis were performed following the use of intrave nous contrast. A dose lowering technique was utilized adhering to the principles of ALARA. COMPARISON STUDY: None. FINDINGS: Trace left pleural effusion. A few bibasilar linear densities consistent with subsegmental atelectasis. No pneumoperitoneum. No pneumatosis. No suspicious lytic or blastic osseous lesions. Mil d body wall edema. Tiny fat-containing umbilical hernia. Mildly enlarged right anterior diaphragmatic lymph node on image 54 measuring 1 cm. Multiple large heterogeneous mass is seen throughout the live r. Some of these lesions are coalescing. Dominant lesion within the central aspect of the liver measu res 7.4 cm. These are consistent with metastatic disease. Partial thrombus within the main portal vei n. The inferior mesenteric vein is thrombosed. Small focus of thrombus within the superior mesenteric vein is also noted. Multiple mildly enlarged lymph nodes adjacent to the thrombosed inferior mesente nellie vein. There is also a dominant cystic lesion with curvilinear calcifications and adjacent to the inferior mesenteric vein and abutting the sigmoid colon. This is best seen on image 382 and measures 4.5 x 3.3 cm. Mild thickening along the surface of the mid to distal sigmoid colon favors serosal imp lants in the setting of metastatic disease. Moderate ascites is noted. Mild thickening within the per itoneal lining posterior to the spleen and along the left paracolic gutter which could represent deve loping peritoneal carcinomatosis. The bladder is decompressed by Gillespie catheter. The uterus is unrema rkable. No bowel wall thickening or obstruction. An 8 cm right adrenal myelolipoma. No hydronephrosis . IMPRESSION: 1. Multiple large masses seen throughout the liver consistent with metastatic disease. 2. The inferior mesenteric vein is completely thrombosed. The main portal vein and superior mesenteri c vein also demonstrate a small amount of nonocclusive thrombus. 3. Moderate ascites. Mild thickening of the peritoneal lining on the left. This could represent devel oping peritoneal carcinomatosis. 4. Multiple enlarged lymph nodes and a 4.5 x 3.3 cm cystic mass along the course of the thrombosed le ft inferior mesenteric vein. There is also soft tissue thickening along the surface of the mid to dis fuentes sigmoid colon consistent with serosal implants in the setting of metastatic disease. This could b e due to a primary colonic or ovarian malignancy. 5. Additional findings as described above. ACT 112: Negative or not required by law. Electronically signed by: Sang Del Rosario M.D. 09/24/2021 8:53 AM
[2021-09-24 09:13] LABS: Estimated Average Glucose 131 mg/dl; Hemoglobin A1C 6.2 % (4.5-5.6)
--- NOTE | 2021-09-24 12:55 | Hospitalist Progress Note ---
Date of Service September 24, 2021 Assessment & Plan (1) Abnormal CT of the abdomen: (2) Abdominal pain: (3) Liver metastases: (4) Ascites: (5) Malignancy: Plan: CT abd showing multiple large masses in liver consistent with mets, IMV is thrombosed, PV and SMV have small nonocclusive thrombus, moderate ascites, 4.5x3.3cm mass along course of left IMV. Possible primary colonic or ovarian malignancy Elevated CEA CA-19 pending Possible ovarian vs colonic malignancy with mets Abnormal LFT likely due to liver mets Getting USS paracentesis. Will follow up cytology GI consulted for bloody BM. Will need colonoscopy at some point Onco will follow once some pathology result is available (6) Hypokalemia: Plan: K is 3.4 Replete and monitor (7) Schizophrenia: Plan: Continue home med Admission and Anticipated Discharge Date Admission Date: September 23, 2021 Subjective Patient seen and examined Patient is hungarian speaking. I offered to use instrument and controls technician service which she declined and prefered her family who was at bedside to interprete. Reports abd pain and distention over the past 4 months. Pain is described as discomfort, generalized, feels tight/full, no relieving factors Associated with bloody BM, weight loss Denied nausea, vomiting Reports weakness Denied cough, chest pain. Reported some shortness of breath yesterday which was attributed to increasing abd distention Denied dysuria, freq, urgency Denied fevers Physical Exam Constitutional: + well hydrated; no acute distress Eyes: PERRL, conjunctivae normal, anicteric sclerae ENMT: external ear and nose normal, oropharynx normal Respiratory: normal respiratory effort, lungs clear to auscultation Cardiovascular: Rate/Rhythm: regular rhythm and + tachycardic S1 S2 Gastrointestinal (Abdomen): Distended, soft, mild tenderness, no rebound or guarding, +fluid wave Musculoskeletal: no cyanosis or clubbing, extremities motor strength 5/5 Neurologic: PERRL, EOMI, accommodation nl, no face palsy, no dysarthria Results & Data Results & Data ([facility]) Vital Signs (Past 12 Hours) Vital Signs Temp Pulse Resp BP Pulse Ox 09/24/21 08:20 36.6 C 116 H 18 151/97 H 95 09/24/21 01:25 36.7 C 120 H 20 155/84 H 95 Laboratory Results Abnormal lab results 09/23/21 09/23/21 09/23/21 Range/Units 18:20 18:20 18:20 WBC 13.07 H (4.8-10.8) K/uL RBC (4.2-5.4) M/uL Hgb (12.0-16.0) g/dL Hct (37-47) % RDW Std Deviation 49.1 H (36.4-46.3) fL RDW Coeff of Cesia 15.9 H (11.5-14.5) % MPV 10.8 H (7.4-10.4) fL Neut # (Auto) 11.34 H (1.4-6.5) K/uL Lymph # (Auto) 0.84 L (1.2-3.4) K/uL [place] # (Auto) 0.81 H (0.11-0.59) K/uL Immature Gran # (Auto) 0.04 H (0.00-0.02) K/uL Neutrophils # (Manual) (1.4-6.5) K/uL Total Absolute Neuts (1.4-6.5) K/uL Lymphocytes # (Manual) (1.2-3.4) K/uL Total Abs Lymphocytes (1.2-3.4) K/uL Potassium 3.2 L (3.5-5.1) mmol/L Carbon Dioxide 20 L (21-32) mmol/L Anion Gap 14 H (3-11) BUN/Creatinine Ratio 22.0 H (10-20) Glucose 182 H (70-99(Fasting)) mg/dl POC Glucose (70-99) mg/dl Hemoglobin A1c (4.5-5.6) % Lactate 2.9 H* (0.4-2.0) mmol/L Total Bilirubin 2.3 H (0.2-1.0) mg/dl AST 58 H (13-39) U/L Alkaline Phosphatase 476 H (34-104) U/L Albumin (3.4-5.0) gm/dl Carcinoembryonic Ag (0-2.5) ng/ml Urine Appearance (Clear) Urine Protein (Negative) Urine Ketones (Negative) Urine Nitrite (Negative) Urine Bilirubin (Negative) Urine Urobilinogen (Negative) Ur Leukocyte Esterase (Negative) Urine WBC (Auto) (0-5) /hpf Urine RBC (Auto) (0-4) /hpf U Hyaline Cast (Auto) (0-5) /lpf U Epithel Cells (Auto) (0-5) /lpf Granular Casts (0) /lpf Peritoneal WBC (0-300) /ul Stool Occult Bld Scrn (Negative) 09/23/21 09/24/21 09/24/21 Range/Units 18:20 05:10 06:23 WBC (4.8-10.8) K/uL RBC (4.2-5.4) M/uL Hgb (12.0-16.0) g/dL Hct (37-47) % RDW Std Deviation (36.4-46.3) fL RDW Coeff of Cesia (11.5-14.5) % MPV (7.4-10.4) fL Neut # (Auto) (1.4-6.5) K/uL Lymph # (Auto) (1.2-3.4) K/uL [place] # (Auto) (0.11-0.59) K/uL Immature Gran # (Auto) (0.00-0.02) K/uL Neutrophils # (Manual) (1.4-6.5) K/uL Total Absolute Neuts (1.4-6.5) K/uL Lymphocytes # (Manual) (1.2-3.4) K/uL Total Abs Lymphocytes (1.2-3.4) K/uL Potassium (3.5-5.1) mmol/L Carbon Dioxide (21-32) mmol/L Anion Gap (3-11) BUN/Creatinine Ratio (10-20) Glucose (70-99(Fasting)) mg/dl POC Glucose 138 H (70-99) mg/dl Hemoglobin A1c (4.5-5.6) % Lactate (0.4-2.0) mmol/L Total Bilirubin (0.2-1.0) mg/dl AST (13-39) U/L Alkaline Phosphatase (34-104) U/L Albumin (3.4-5.0) gm/dl Carcinoembryonic Ag (0-2.5) ng/ml Urine Appearance Cloudy A (Clear) Urine Protein 1+ H (Negative) Urine Ketones Trace H (Negative) Urine Nitrite Positive A (Negative) Urine Bilirubin 3+ H (Negative) Urine Urobilinogen Positive H (Negative) Ur Leukocyte Esterase 1+ H (Negative) Urine WBC (Auto) 5-10 H (0-5) /hpf Urine RBC (Auto) 5-10 H (0-4) /hpf U Hyaline Cast (Auto) 5-10 H (0-5) /lpf U Epithel Cells (Auto) >30 H (0-5) /lpf Granular Casts 1-5 H (0) /lpf Peritoneal WBC (0-300) /ul Stool Occult Bld Scrn Positive A (Negative) 09/24/21 09/24/21 09/24/21 Range/Units 06:28 06:28 06:28 WBC (4.8-10.8) K/uL RBC 3.94 L (4.2-5.4) M/uL Hgb 10.9 L (12.0-16.0) g/dL Hct 33.1 L (37-47) % RDW Std Deviation 49.4 H (36.4-46.3) fL RDW Coeff of Cesia 15.9 H (11.5-14.5) % MPV 11.0 H (7.4-10.4) fL Neut # (Auto) (1.4-6.5) K/uL Lymph # (Auto) (1.2-3.4) K/uL [place] # (Auto) (0.11-0.59) K/uL Immature Gran # (Auto) (0.00-0.02) K/uL Neutrophils # (Manual) 8.24 H (1.4-6.5) K/uL Total Absolute Neuts 8.24 H (1.4-6.5) K/uL Lymphocytes # (Manual) 1.11 L (1.2-3.4) K/uL Total Abs Lymphocytes 1.11 L (1.2-3.4) K/uL Potassium 3.4 L (3.5-5.1) mmol/L Carbon Dioxide (21-32) mmol/L Anion Gap (3-11) BUN/Creatinine Ratio 26.2 H (10-20) Glucose 136 H (70-99(Fasting)) mg/dl POC Glucose (70-99) mg/dl Hemoglobin A1c 6.2 H (4.5-5.6) % Lactate (0.4-2.0) mmol/L Total Bilirubin 1.9 H (0.2-1.0) mg/dl AST 46 H (13-39) U/L Alkaline Phosphatase 385 H (34-104) U/L Albumin 3.2 L (3.4-5.0) gm/dl Carcinoembryonic Ag (0-2.5) ng/ml Urine Appearance (Clear) Urine Protein (Negative) Urine Ketones (Negative) Urine Nitrite (Negative) Urine Bilirubin (Negative) Urine Urobilinogen (Negative) Ur Leukocyte Esterase (Negative) Urine WBC (Auto) (0-5) /hpf Urine RBC (Auto) (0-4) /hpf U Hyaline Cast (Auto) (0-5) /lpf U Epithel Cells (Auto) (0-5) /lpf Granular Casts (0) /lpf Peritoneal WBC (0-300) /ul Stool Occult Bld Scrn (Negative) 09/24/21 09/24/21 09/24/21 Range/Units 12:26 14:34 17:20 WBC (4.8-10.8) K/uL RBC (4.2-5.4) M/uL Hgb (12.0-16.0) g/dL Hct (37-47) % RDW Std Deviation (36.4-46.3) fL RDW Coeff of Cesia (11.5-14.5) % MPV (7.4-10.4) fL Neut # (Auto) (1.4-6.5) K/uL Lymph # (Auto) (1.2-3.4) K/uL [place] # (Auto) (0.11-0.59) K/uL Immature Gran # (Auto) (0.00-0.02) K/uL Neutrophils # (Manual) (1.4-6.5) K/uL Total Absolute Neuts (1.4-6.5) K/uL Lymphocytes # (Manual) (1.2-3.4) K/uL Total Abs Lymphocytes (1.2-3.4) K/uL Potassium (3.5-5.1) mmol/L Carbon Dioxide (21-32) mmol/L Anion Gap (3-11) BUN/Creatinine Ratio (10-20) Glucose (70-99(Fasting)) mg/dl POC Glucose 157 H 161 H (70-99) mg/dl Hemoglobin A1c (4.5-5.6) % Lactate (0.4-2.0) mmol/L Total Bilirubin (0.2-1.0) mg/dl AST (13-39) U/L Alkaline Phosphatase (34-104) U/L Albumin (3.4-5.0) gm/dl Carcinoembryonic Ag > 850.0 H (0-2.5) ng/ml Urine Appearance (Clear) Urine Protein (Negative) Urine Ketones (Negative) Urine Nitrite (Negative) Urine Bilirubin (Negative) Urine Urobilinogen (Negative) Ur Leukocyte Esterase (Negative) Urine WBC (Auto) (0-5) /hpf Urine RBC (Auto) (0-4) /hpf U Hyaline Cast (Auto) (0-5) /lpf U Epithel Cells (Auto) (0-5) /lpf Granular Casts (0) /lpf Peritoneal WBC (0-300) /ul Stool Occult Bld Scrn (Negative) 09/24/21 Range/Units Unknown WBC (4.8-10.8) K/uL RBC (4.2-5.4) M/uL Hgb (12.0-16.0) g/dL Hct (37-47) % RDW Std Deviation (36.4-46.3) fL RDW Coeff of Cesia (11.5-14.5) % MPV (7.4-10.4) fL Neut # (Auto) (1.4-6.5) K/uL Lymph # (Auto) (1.2-3.4) K/uL [place] # (Auto) (0.11-0.59) K/uL Immature Gran # (Auto) (0.00-0.02) K/uL Neutrophils # (Manual) (1.4-6.5) K/uL Total Absolute Neuts (1.4-6.5) K/uL Lymphocytes # (Manual) (1.2-3.4) K/uL Total Abs Lymphocytes (1.2-3.4) K/uL Potassium (3.5-5.1) mmol/L Carbon Dioxide (21-32) mmol/L Anion Gap (3-11) BUN/Creatinine Ratio (10-20) Glucose (70-99(Fasting)) mg/dl POC Glucose (70-99) mg/dl Hemoglobin A1c (4.5-5.6) % Lactate (0.4-2.0) mmol/L Total Bilirubin (0.2-1.0) mg/dl AST (13-39) U/L Alkaline Phosphatase (34-104) U/L Albumin (3.4-5.0) gm/dl Carcinoembryonic Ag (0-2.5) ng/ml Urine Appearance (Clear) Urine Protein (Negative) Urine Ketones (Negative) Urine Nitrite (Negative) Urine Bilirubin (Negative) Urine Urobilinogen (Negative) Ur Leukocyte Esterase (Negative) Urine WBC (Auto) (0-5) /hpf Urine RBC (Auto) (0-4) /hpf U Hyaline Cast (Auto) (0-5) /lpf U Epithel Cells (Auto) (0-5) /lpf Granular Casts (0) /lpf Peritoneal WBC 372 H (0-300) /ul Stool Occult Bld Scrn (Negative) (1) Abdominal pain Abdominal location: generalized Qualified Code(s): R10.84 - Generalized abdominal pain (2) Ascites Ascites type: malignant Qualified Code(s): R18.0 - Malignant ascites
--- NOTE | 2021-09-24 13:28 | Gastrointestinal Consultation ---
Date of Consultation September 24, 2021 Assessment & Plan (1) Liver metastases: (2) Diarrhea: (3) Abnormal CT of the abdomen: Will await results of ascitic fluid cytology. CEA is pending. Will order CA125. If unable to obtain a dx of the primary site, then will consider colonoscopy - but pt prefers to avoid. In the interim, while awaiting possible colonoscopy, appreciate primary services efforts to maximize clinical situation - decrease ascites, w/o for infections. Consider hem/onc consult for tx of thromboses as well as w/o for this malignancy. Stools for GI path/C-diff and if (-) then antidiarrheals. May eat a full liquid diet for now. I spoke with the pt's niece who translated to the pt, explaining that she has a cancer, and blood clots and that we will likely know the primary site when the acistic fluid cytology results are back. Supervising Physician Co-Signing Physician Notes I performed a history and physical examination of the patient today, including specifically on physical exam - soft abdomen. I have discussed the patient's management with the advanced practitioner. Please refer to the nurse practitioner's note for the documented findings and plan of care. Imaging with advanced metastatic malignancy, Primary is likely Ovarian Vs Colon. Recommend: Paracenthesis and send for Cytology. Oncology eval. Also need to address multiple intraabdominal DVT including IMV, SMV and PVT, though she is not a candidate for AC due to intermittent rectal bleeding. Further plan based on Cytology. History of Present Illness Reason for Consultation: bloody diarrhea, ovarian vs. colon mass Requesting Physician: Dr. Bruce Attending Physician: Janis Campos MD History of Present Illness Ms. Emy Shelton is a 61 yr old female pt of Dr. Araujo with a hx of schizophrenia and obesity. She was brought to [facility] on 09/23/21 for bloody diarrhea, Urine and stool incontinence. She does not speak Polish. Her nephew's is at the bedside and provides translation. They tell me that the pt has had bloody diarrhea, nausea, vomiting for about 4 months. She saw her PCP who recommended colonoscopy, but the pt preferred to avoid and continues to prefer to avoid colonoscopy if at all possible due to difficult prep. She has had a poor appetite, lost weight, then in the past month developed ascites. Recently SOB and weakness. She continues with bloody diarrhea, now very frequently, about every 1/[address] on arrival with suggestion of: ovarian vs. colonic mass, multiple venous thromboses, large ascites. Paracentesis with tap for cytology is being arranged and anticoagulation is being held for now pending possible procedures. Allergies Allergy/AdvReac Type Severity Reaction Status Date / Time No Known Drug Allergies Allergy Unknown Verified 09/23/21 17:56 Home Medications Medication Instructions Recorded Confirmed Type fluphenazine HCl 5 mg tablet 5 mg PO AMHS tab 12/10/18 09/23/21 History trihexyphenidyl 5 mg tablet 7.5 mg PO DAILY tab 12/10/18 09/23/21 History Patient History Medical History Impaired fasting glucose Morbid obesity Schizophrenia Tinnitus Social History Smoking Status: Never smoker Hx Alcohol Use: No Hx Substance Use: No Preferred Language: Surinamese Communication Ability: Effective Environmental Intern Required: Yes Beliefs That Will Affect Care: None Current Living Situation: Family Feels Safe at Home: Yes Assistive Devices: None Review of Systems Review of Systems: ROS: Gen: + weakness, no fevers, + weight loss Eyes: No eye redness, or pain, no recent vision changes Resp: + SOB secondary to ascites. No cough Cardio: No palpitations/irregular beats, no chest pain GI: + abdominal bloating/discomfort, + no nausea/vomiting : Denies pain on urination Skin: No jaundice, itching or new rashes, + increased ecchymosis Physical Exam Constitutional: well developed, + ill appearing and cooperative; no acute distress Eyes: EOM intact bilaterally mild icterus ENMT: Ears: + external ear abnormality; no hearing impairment Nose: + external nose abnormality Respiratory: normal respiratory effort, lungs clear to auscultation Cardiovascular: RRR, no murmur, no edema Gastrointestinal (Abdomen): Percussion/Palpation: + abdomen tender (Mild diffuse addominal tenderness. No signs of acute abdomen.), abdomen soft and + fluid wave (large, non taunt ascites); no guarding and abdomen not rigid Skin: + pallor + ecchymosis on abdomen (few on legs) No jaundice Neurologic: PERRL, EOMI, accommodation nl, no face palsy, no dysarthria awake; not confused Psychiatric: A+Ox3, euthymic affect Lymphatic: no cervical or axillary lymphadenopathy Results & Data ([facility]) Vital Signs (Past 12 Hours) Vital Signs Temp Pulse Resp BP Pulse Ox 09/24/21 08:20 36.6 C 116 H 18 151/97 H 95 09/24/21 01:25 36.7 C 120 H 20 155/84 H 95 Laboratory Results WBC 9.78, HB 10.9, HCT 33, PLT S3 0 2, Na 140, K 3.4, Cl 106, CO2 23, BUN 17, CR 0.65, glucose 136, INR 1.2, total bilirubin 1.9, AST 46, ALT 20, alkaline phosphatase 384 Diagnostic Findings CTAP wIV on 09/25/20: 1. Multiple large masses seen throughout the liver consistent with metastatic disease. 2. The inferior mesenteric vein is completely thrombosed. The main portal vein and superior mesenteric vein also demonstrate a small amount of nonocclusive thrombus. 3. Moderate ascites. Mild thickening of the peritoneal lining on the left. This could represent developing peritoneal carcinomatosis. 4. Multiple enlarged lymph nodes and a 4.5 x 3.3 cm cystic mass along the course of the thrombosed left inferior mesenteric vein. There is also soft tissue thickening along the surface of the mid to distal sigmoid colon consistent with serosal implants in the setting of metastatic disease. This could be due to a p rimary colonic or ovarian malignancy. 5. Additional findings as described above.
--- NOTE | 2021-09-24 14:06 | Ultrasound Report ---
PARACENTESIS UNDER ULTRASOUND GUIDANCE CLINICAL HISTORY: Abdominal ascites and hepatic metastatic disease COMPARISON STUDY: No priors. PROCEDURE: The risks, benefits, and alternatives to the procedure were discussed with the patient who voiced understanding. Written informed consent was obtained. Following real-time ultrasound localiza tion of a suitable pocket of fluid in the right lower quadrant, the abdomen was prepped and draped in the usual sterile fashion. The skin and soft tissues were anesthetized with 1% lidocaine. The sheath ed paracentesis needle was inserted and approximately 4.5 liters of straw-colored ascitic fluid was r emoved by vacuum suction. Fluid was sent for laboratory assessment. The procedure was well tolerated and without immediate complication. The patient left the department in satisfactory condition. IMPRESSION: Successful ultrasound-guided paracentesis with removal of approximately 4.5 liters of asc itic fluid. ACT 112: Negative or not required by law. Electronically signed by: Adarsh Rausch M.D. 09/24/2021 2:05 PM
[2021-09-24 14:49] LABS: Albumin Peritoneal Fluid < 1.5 gm/dl; Amylase Peritoneal Fluid < 10 U/L; Glucose Peritoneal Fluid 159 mg/dl; LDH Peritoneal Fluid 81 U/L; Lipase Peritoneal Fluid 15 U/L; Total Protein Peritoneal Fluid < 3.0 gm/dl
[2021-09-24 14:52] LABS: Appearance Peritoneal Fluid HAZY; Basophils, Fluid 0 %; Color Peritoneal Fluid YELLOW; Eosinophils, Fluid 1 %; Lymphocytes, Fluid 63 %; Mono,Macrophage,Mesothelial 8 %; Neutrophils, Fluid 28 %; RBC Peritoneal Fluid (A) < 3000 /uL; WBC Peritoneal Fluid (A) 372 /ul (0-300)
[2021-09-24] MEDS ORDERED: POTASSIUM CHLORIDE CRTAB 20 MEQ TABCR PO STA (17:40)
[2021-09-24 17:50] LABS: Adenovirus F 40/41 PCR Not Detected (NotDetected); Astrovirus PCR Not Detected (NotDetected); Campylobacter PCR Not Detected (NotDetected); Clostridium diff Toxin A/B PCR Not Detected (NotDetected); Cryptosporidium PCR Not Detected (NotDetected); Cyclospora cayetanensis PCR Not Detected (NotDetected); Entamoeba histolytica PCR Not Detected (NotDetected); Enteroaggregative E.coli(EAEC) Not Detected (NotDetected); Enteropathogenic E.coli (EPEC) Not Detected (NotDetected); Enterotoxigenic E.coli (ETEC) Not Detected (NotDetected); Giardia lamblia PCR Not Detected (NotDetected); Plesiomonas shigelloides PCR Not Detected (NotDetected); Rotavirus A PCR Not Detected (NotDetected); Salmonella PCR Not Detected (NotDetected); Sapovirus PCR Not Detected (NotDetected); Shiga-like Toxin E.coli (STEC) Not Detected (NotDetected); Shigella/Enteroinvasive E.coli Not Detected (NotDetected); Vibrio cholerae PCR Not Detected (NotDetected); Vibrio species PCR Not Detected (NotDetected); Yersinia enterocolitica PCR Not Detected (NotDetected)
[2021-09-24 18:23] LABS: Norovirus GI/GII PCR DETECTED (NotDetected)
[2021-09-25 02:38] LABS: Hematocrit (blood only) 28.3 % (37-47); Hemoglobin 9.4 g/dL (12.0-16.0)
[2021-09-25 08:21] LABS: Basophils # (auto) 0.03 K/uL (0-0.2); Basophils % (auto) 0.2 %; Eosinophils # (auto) 0.05 K/uL (0-0.5); Eosinophils % (auto) 0.4 %; Hemoglobin 9.3 g/dL (12.0-16.0); Immature Granulocytes # (auto) 0.05 K/uL (0.00-0.02); Immature Granulocytes % (auto) 0.4 %; Lymphocytes # (auto) 1.83 K/uL (1.2-3.4); Lymphocytes % (auto) 14.3 %; Mean Corpuscular Hemoglobin 27.4 pg (25-34); Mean Corpuscular Hgb Conc 32.1 g/dL (32-36); Mean Corpuscular Volume 85.5 fL (80-100); Mean Platelet Volume 10.8 fL (7.4-10.4); Monocytes # (auto) 1.21 K/uL (0.11-0.59); Monocytes % (auto) 9.4 %; Neutrophils # (auto) 9.64 K/uL (1.4-6.5); Neutrophils % (auto) 75.3 %; Platelet Count 335 K/uL (130-400); RDW Coefficient of Variation 16.2 % (11.5-14.5); RDW Standard Deviation 50.5 fL (36.4-46.3); Red Blood Count 3.39 M/uL (4.2-5.4); White Blood Count 12.81 K/uL (4.8-10.8)
[2021-09-25 08:24] LABS: BUN Creatinine Ratio 40.3 (10-20); Bilirubin,Total 1.5 mg/dl (0.2-1.0); Calcium 8.9 mg/dl (8.5-10.1); Creatinine Clr Calc Pharmacy 106.4 ml/min; Est GFR (African American) 106.2 ml/min; Est GFR (Non-African American) 91.7 ml/min; Globulin 3.1 gm/dl (2.5-4.0); Magnesium 2.1 mg/dl (1.7-2.4); Phosphorus 2.3 mg/dl (2.5-4.9); Potassium 4.2 mmol/L (3.5-5.1); Total Protein 6.1 gm/dl (6.0-8.3)
[2021-09-25] MEDS: TRIHEXYPHENIDYL HCL 5 MG TAB PO SCH (08:33)
[2021-09-25] MEDS: FAMOTIDINE 20MG IV PUSH 20 MG/5 ML SYR IV SCH ×2 (08:33→21:53)
[2021-09-25] MEDS: FLUPHENAZINE 5 MG PO SCH ×2 (08:34→18:12)
[2021-09-25] MEDS: INSULIN ASPART PER UNIT SC SCH ×4 (10:07→21:35)
--- NOTE | 2021-09-25 13:35 | Hospitalist Progress Note ---
Date of Service September 25, 2021 Assessment & Plan (1) Abnormal CT of the abdomen: (2) Abdominal pain: (3) Liver metastases: (4) Ascites: (5) Malignancy: Plan: CT abd showing multiple large masses in liver consistent with mets, IMV is thrombosed, PV and SMV have small nonocclusive thrombus, moderate ascites, 4.5x3.3cm mass along course of left IMV. Possible primary colonic or ovarian malignancy Elevated CEA CA-19/ CA 125 pending Possible ovarian vs colonic malignancy with mets Abnormal LFT, lactate likely due to liver mets Had paracentesis yesterday with 4.5L removed Follow up fluid cytology GI consulted for bloody BM. Will need colonoscopy/flex sig at some point Hb dropped to 9.3 today from 10.9 yesterday Discussed with GI. They will monitor for today and follow cytology Onco will follow once some pathology result is available IMV thrombosis SMV and main portal also has small amount of nonocclusive thrombus No anticoagulation for now due to GI bleeding (6) Hypokalemia: Plan: K is 3.4 Repleted. Kis 4.2 today (7) Schizophrenia: Plan: Continue home med Plan: DVT ppx - no pharmacological agent for now in view of hematochezia SCD Admission and Anticipated Discharge Date Admission Date: September 23, 2021 Subjective Patient seen and examined Patient is gibraltarian speaking. Evaluated patient using lang Still reports abd pain and distention. Pain is generalized. Reports this mildly improved with paracentesis yesterday Denied nausea, vomiting Denied cough, chest pain, shortness of breath Denied fevers Still reports diarrhea with hematochezia Physical Exam Constitutional: + well hydrated; no acute distress Eyes: PERRL, conjunctivae normal, anicteric sclerae ENMT: external ear and nose normal, oropharynx normal Respiratory: normal respiratory effort, lungs clear to auscultation Cardiovascular: Rate/Rhythm: regular rhythm and + tachycardic S1 S2 Gastrointestinal (Abdomen): Abd is distended, mild generalized tenderness, +bowel sounds Musculoskeletal: no cyanosis or clubbing, extremities motor strength 5/5 Neurologic: PERRL, EOMI, accommodation nl, no face palsy, no dysarthria Genitourinary: Gillespie in situ Results & Data Results & Data ([facility]) Vital Signs (Past 12 Hours) Vital Signs Temp Pulse Resp BP Pulse Ox 09/25/21 11:37 117 H 126/76 95 09/25/21 10:51 125 H 146/93 H 95 09/25/21 10:45 122 H 176/108 H 96 09/25/21 07:48 37 C 110 H 16 146/89 H 95 Laboratory Results Abnormal lab results 09/24/21 09/24/21 09/24/21 Range/Units 14:34 15:50 17:20 WBC (4.8-10.8) K/uL RBC (4.2-5.4) M/uL Hgb (12.0-16.0) g/dL Hct (37-47) % RDW Std Deviation (36.4-46.3) fL RDW Coeff of Cesia (11.5-14.5) % MPV (7.4-10.4) fL Neut # (Auto) (1.4-6.5) K/uL Person # (Auto) (0.11-0.59) K/uL Immature Gran # (Auto) (0.00-0.02) K/uL Chloride (98-107) mmol/L BUN (6-23) mg/dl BUN/Creatinine Ratio (10-20) Glucose (70-99(Fasting)) mg/dl POC Glucose 161 H (70-99) mg/dl Lactate (0.4-2.0) mmol/L Phosphorus (2.5-4.9) mg/dl Total Bilirubin (0.2-1.0) mg/dl AST (13-39) U/L Alkaline Phosphatase (34-104) U/L Albumin (3.4-5.0) gm/dl Carcinoembryonic Ag > 850.0 H (0-2.5) ng/ml Peritoneal WBC (0-300) /ul Stl Norovirus GI/GII PCR DETECTED A* (NotDetected) 09/24/21 09/24/21 09/25/21 Range/Units 20:53 Unknown 02:28 WBC (4.8-10.8) K/uL RBC (4.2-5.4) M/uL Hgb 9.4 L (12.0-16.0) g/dL Hct 28.3 L (37-47) % RDW Std Deviation (36.4-46.3) fL RDW Coeff of Cesia (11.5-14.5) % MPV (7.4-10.4) fL Neut # (Auto) (1.4-6.5) K/uL Person # (Auto) (0.11-0.59) K/uL Immature Gran # (Auto) (0.00-0.02) K/uL Chloride (98-107) mmol/L BUN (6-23) mg/dl BUN/Creatinine Ratio (10-20) Glucose (70-99(Fasting)) mg/dl POC Glucose 149 H (70-99) mg/dl Lactate (0.4-2.0) mmol/L Phosphorus (2.5-4.9) mg/dl Total Bilirubin (0.2-1.0) mg/dl AST (13-39) U/L Alkaline Phosphatase (34-104) U/L Albumin (3.4-5.0) gm/dl Carcinoembryonic Ag (0-2.5) ng/ml Peritoneal WBC 372 H (0-300) /ul Stl Norovirus GI/GII PCR (NotDetected) 09/25/21 09/25/21 09/25/21 Range/Units 06:06 07:33 07:33 WBC 12.81 H (4.8-10.8) K/uL RBC 3.39 L (4.2-5.4) M/uL Hgb 9.3 L (12.0-16.0) g/dL Hct 29.0 L (37-47) % RDW Std Deviation 50.5 H (36.4-46.3) fL RDW Coeff of Cesia 16.2 H (11.5-14.5) % MPV 10.8 H (7.4-10.4) fL Neut # (Auto) 9.64 H (1.4-6.5) K/uL Person # (Auto) 1.21 H (0.11-0.59) K/uL Immature Gran # (Auto) 0.05 H (0.00-0.02) K/uL Chloride 110 H (98-107) mmol/L BUN 29 H (6-23) mg/dl BUN/Creatinine Ratio 40.3 H (10-20) Glucose 166 H (70-99(Fasting)) mg/dl POC Glucose 185 H (70-99) mg/dl Lactate (0.4-2.0) mmol/L Phosphorus 2.3 L (2.5-4.9) mg/dl Total Bilirubin 1.5 H (0.2-1.0) mg/dl AST 64 H (13-39) U/L Alkaline Phosphatase 349 H (34-104) U/L Albumin 3.0 L (3.4-5.0) gm/dl Carcinoembryonic Ag (0-2.5) ng/ml Peritoneal WBC (0-300) /ul Stl Norovirus GI/GII PCR (NotDetected) 09/25/21 09/25/21 09/25/21 Range/Units 07:40 08:19 11:52 WBC (4.8-10.8) K/uL RBC (4.2-5.4) M/uL Hgb (12.0-16.0) g/dL Hct (37-47) % RDW Std Deviation (36.4-46.3) fL RDW Coeff of Cesia (11.5-14.5) % MPV (7.4-10.4) fL Neut # (Auto) (1.4-6.5) K/uL Person # (Auto) (0.11-0.59) K/uL Immature Gran # (Auto) (0.00-0.02) K/uL Chloride (98-107) mmol/L BUN (6-23) mg/dl BUN/Creatinine Ratio (10-20) Glucose (70-99(Fasting)) mg/dl POC Glucose 185 H 175 H (70-99) mg/dl Lactate 2.3 H* (0.4-2.0) mmol/L Phosphorus (2.5-4.9) mg/dl Total Bilirubin (0.2-1.0) mg/dl AST (13-39) U/L Alkaline Phosphatase (34-104) U/L Albumin (3.4-5.0) gm/dl Carcinoembryonic Ag (0-2.5) ng/ml Peritoneal WBC (0-300) /ul Stl Norovirus GI/GII PCR (NotDetected) (1) Ascites Ascites type: malignant Qualified Code(s): R18.0 - Malignant ascites (2) Abdominal pain Abdominal location: generalized Qualified Code(s): R10.84 - Generalized abdominal pain
[2021-09-26 07:12] LABS: Basophils # (auto) 0.02 K/uL (0-0.2); Basophils % (auto) 0.1 %; Eosinophils # (auto) 0.09 K/uL (0-0.5); Eosinophils % (auto) 0.7 %; Hematocrit (blood only) 28.8 % (37-47); Hemoglobin 9.4 g/dL (12.0-16.0); Immature Granulocytes # (auto) 0.05 K/uL (0.00-0.02); Immature Granulocytes % (auto) 0.4 %; Lymphocytes # (auto) 2.09 K/uL (1.2-3.4); Lymphocytes % (auto) 15.5 %; Mean Corpuscular Hemoglobin 27.7 pg (25-34); Mean Corpuscular Hgb Conc 32.6 g/dL (32-36); Mean Platelet Volume 10.4 fL (7.4-10.4); Monocytes # (auto) 1.27 K/uL (0.11-0.59); Monocytes % (auto) 9.4 %; Neutrophils # (auto) 9.96 K/uL (1.4-6.5); Neutrophils % (auto) 73.9 %; Platelet Count 326 K/uL (130-400); RDW Coefficient of Variation 16.3 % (11.5-14.5); RDW Standard Deviation 49.9 fL (36.4-46.3); Red Blood Count 3.39 M/uL (4.2-5.4); White Blood Count 13.48 K/uL (4.8-10.8)
[2021-09-26 07:25] LABS: Albumin Globulin Ratio 0.9 (0.9-2); BUN Creatinine Ratio 39.4 (10-20); Bilirubin,Total 1.5 mg/dl (0.2-1.0); Calcium 9.1 mg/dl (8.5-10.1); Creatinine Clr Calc Pharmacy 107.9 ml/min; Est GFR (African American) 108.1 ml/min; Est GFR (Non-African American) 93.2 ml/min; Globulin 3.3 gm/dl (2.5-4.0); Magnesium 2.1 mg/dl (1.7-2.4); Potassium 3.6 mmol/L (3.5-5.1); Total Protein 6.3 gm/dl (6.0-8.3)
[2021-09-26] MEDS: INSULIN ASPART PER UNIT SC SCH ×4 (09:34→21:21)
--- NOTE | 2021-09-26 09:36 | Gastroenterology Progress Note ---
Date of Service September 26, 2021 Assessment & Plan (1) Abnormal CT of the abdomen: (2) Liver metastases: (3) Ascites: Plan: Plan for flex sig today to attempt tissue sample - if colon mass is present. Pt did not wish to undergo colonoscopy prep. Agrees to enemas to prep for flex sig. Pt has been NPO since 8AM at that time 3oz of water. Not currently on an anticoagulant or antiplatelet. Further recommendations to follow flex sig. Admission and Anticipated Discharge Date Admission Date: September 23, 2021 Supervising Physician Co-Signing Physician Notes I performed a history and physical examination of the patient today, including specifically on physical exam - soft abdomen. I have discussed the patient's management with the advanced practitioner. Please refer to the nurse practitioner's note for the documented findings and plan of care. Flex sig today If no mass seen then plan for upper EUS tomorrow with Biopsy of the liver mets. Subjective Pt resting comfortably in bed. Nephew's a bedside providing some care and translating. Ascitic fluid cytology w/o evidence of malignant cells. Passing loose, mucous/red bloody, BMs with minimal fecal material. Pt agrees to undergo flex sig today. CEA 850, other tumor markers pending Review of Systems Review of Systems: ROS: Gen: + weakness, + weight loss then recent gain with ascites Eyes: No eye redness, or pain, no recent vision changes Resp: No SOB, no cough Cardio: No palpitations/irregular beats, no chest pain GI: + bloating/fullness from ascites. Diffuse discomfort. No nausea/vomiting : Denies pain on urination Skin: No jaundice, itching or new rashes Physical Exam Constitutional: well developed, + ill appearing and cooperative Eyes: PERRL, conjunctivae normal, anicteric sclerae ENMT: external ear and nose normal, oropharynx normal Neck: trachea midline, no thyromegaly Respiratory: normal respiratory effort, lungs clear to auscultation Cardiovascular: RRR, no murmur, no edema Gastrointestinal (Abdomen): Inspection/Auscultation: + abdomen distended, normal bowel sounds and + hypoactive bowel sounds Percussion/Palpation: + abdomen tender (Mild diffuse abdominal tenderness. No signs of acute abdomen.) and abdomen soft; no guarding and abdomen not rigid +moderate to large ascites Skin: no rashes, warm and dry normal turgor and + pallor Neurologic: PERRL, EOMI, accommodation nl, no face palsy, no dysarthria awake; not confused Psychiatric: A+Ox3, euthymic affect Results & Data ([facility]) Vital Signs (Past 12 Hours) Vital Signs Temp Pulse Resp BP Pulse Ox Pulse Ox 09/26/21 08:33 36.7 C 112 H 16 132/78 96 09/25/21 21:50 96 Laboratory Results Ascitic Fluid Path: - No malignant cells seen. - Histiocytes and mesothelial cells with reactive cellular changes. Fluid analysis: 372 WBCs, 28% neutrophils WBC 13, Hb 9.4, Hct 28, Plts 326, Na 143, K 3.6, Cl 110, CO2 223, BUN 28, Cr 0.7, glucose 138 CEA 850. T Bili 1.5, AST 58, ALT 21, Alk phos 398. Diagnostic Findings CTAP w IV 09/23/21: 1. Multiple large masses seen throughout the liver consistent with metastatic disease. 2. The inferior mesenteric vein is completely thrombosed. The main portal vein and superior mesenteric vein also demonstrate a small amount of nonocclusive thrombus. 3. Moderate ascites. Mild thickening of the peritoneal lining on the left. This could represent developing peritoneal carcinomatosis. 4. Multiple enlarged lymph nodes and a 4.5 x 3.3 cm cystic mass along the course of the thrombosed left inferior mesenteric vein. There is also soft tissue thickening along the surface of the mid to distal sigmoid colon consistent with serosal implants in the setting of metastatic disease. This could be due to a primary colonic or ovarian malignancy. 5. Additional findings as described above. (1) Ascites Ascites type: malignant Qualified Code(s): R18.0 - Malignant ascites
[2021-09-26] MEDS: FLUPHENAZINE 5 MG PO SCH ×2 (09:56→16:35)
[2021-09-26] MEDS: TRIHEXYPHENIDYL HCL 5 MG TAB PO SCH ×2 (09:56→16:46)
[2021-09-26] MEDS: FAMOTIDINE 20MG IV PUSH 20 MG/5 ML SYR IV SCH ×2 (09:57→22:08)
[2021-09-26 13:07] LABS: CA 125 547 U/mL (<35); Cancer Antigen 19-9 1279 U/mL (<34)
--- NOTE | 2021-09-26 13:19 | Anesthesiology Consultation ---
Date of Service September 26, 2021 Assessment & Plan Chart Review Chart Review: Acceptable Risk for Surgery Consults Requested none History Surgery Operation Date: 09/26/21 17:45 Proposed Procedures p Flexible Sigmoidoscopy Dr Salazar - Rene Salazar MD Height/Weight Height: 5 ft 8 in Weight: 104.5 kg Allergies Allergy/AdvReac Type Severity Reaction Status Date / Time No Known Drug Allergies Allergy Unknown Verified 09/23/21 17:56 Medications Home Medications Medication Instructions Recorded Confirmed Last Taken fluphenazine HCl 5 mg tablet 5 mg PO AMHS tab 12/10/18 09/23/21 Unknown trihexyphenidyl 5 mg tablet 7.5 mg PO DAILY tab 12/10/18 09/23/21 Unknown Active Medications Generic Name Dose Route Start Last Admin Trade Name Kodak PRN Reason Stop Dose Admin Fluphenazine HCl 5 mg 09/25/21 21:00 09/26/21 09:56 Fluphenazine Hcl 2.5 Mg Tab PO 10/25/21 20:59 Not Given AMHS SIM Famotidine 20 mg in 5 mls @ 2.5 mls/min 09/24/21 00:15 09/26/21 09:57 Pepcid 20mg Iv Push IV 10/24/21 00:14 2.5 mls/min Q12 SIM Administration Insulin Aspart 0 units 09/24/21 17:30 09/26/21 12:28 Insulin Aspart Per Unit SC 10/24/21 17:29 Not Given ACHS SIM Fluphenazine [ 1 ea 09/24/21 09:00 09/26/21 09:56 Prolixin] 5mg: Non- PO 10/24/21 08:59 Not Given Formulary Patient's BID SIM Own Med Trihexyphenidyl HCl 7.5 mg 09/24/21 09:00 09/26/21 09:56 Trihexyphenidyl Hcl 5 Mg Tab PO 10/24/21 08:59 Not Given DAILY SIM NPO Date Last Intake of Fluids: 09/25/21 Time Last Intake of Fluids: 18:00 Date Last Intake of Solids: 09/24/21 Past Medical History Medical History Impaired fasting glucose Morbid obesity Schizophrenia Tinnitus Social History Smoking Status: Never smoker Hx Alcohol Use: No Hx Substance Use: No Physical Exam Vital Signs Last Vital Signs Temp 36.7 C 09/26/21 13:15 Pulse 118 H 09/26/21 13:15 Resp 16 09/26/21 13:15 BP 132/91 09/26/21 13:15 Pulse Ox 97 09/26/21 13:15 Testing Laboratory Results 09/26/21 06:34 09/26/21 06:34 PT 12.0 Seconds (9.0-12.0) 09/23/21 18:20 INR 1.1 (0.9-1.1) 09/23/21 18:20 APTT 27.1 Seconds (21.0-31.0) 09/23/21 18:20 Hemoglobin A1c 6.2 % (4.5-5.6) H 09/24/21 06:28 Urine Color Geary 09/23/21 18:20 Urine Appearance Cloudy (Clear) A 09/23/21 18:20 Urine pH 5.5 (4.5-7.5) 09/23/21 18:20 Ur Specific [place] 1.028 (1.000-1.030) 09/23/21 18:20 Urine Protein 1+ (Negative) H 09/23/21 18:20 Urine Glucose (UA) Negative (Negative) 09/23/21 18:20 Urine Ketones Trace (Negative) H 09/23/21 18:20 Urine Nitrite Positive (Negative) A 09/23/21 18:20 Ur Leukocyte Esterase 1+ (Negative) H 09/23/21 18:20 Urine WBC (Auto) 5-10 /hpf (0-5) H 09/23/21 18:20 Urine RBC (Auto) 5-10 /hpf (0-4) H 09/23/21 18:20 U Hyaline Cast (Auto) 5-10 /lpf (0-5) H 09/23/21 18:20 U Epithel Cells (Auto) >30 /lpf (0-5) H 09/23/21 18:20 Urine Bacteria (Auto) Negative (Negative) 09/23/21 18:20 09/23/21 18:20 Urine Culture - Final Urine,Clean Catch No growth - less than 1,000 colonies/mL. 09/24/21 Unknown Gram Stain - Final Peritoneal Fluid Aerobic and Anaerobic Culture - Preliminary No growth to date. 09/26/21 09/26/21 12:16 08:16 POC Glucose 147 H 144 H
[2021-09-26] MEDS ORDERED: LIDOCAINE 2% 2 ML VIAL/AMP(20MG/ML) INFIL ONE (13:33)
[2021-09-26] MEDS ORDERED: ENDOSCOPIC MARKER 5 ML SYR TOP ONE (13:33)
[2021-09-26] MEDS ORDERED: PROPOFOL IV EMULSION 10 MG/ML 20 ML VIAL IV ONE (13:33)
--- NOTE | 2021-09-26 13:44 | GI REPORT ---
Patient Name: Emy Shelton Procedure Date: 09/26/2021 1:21 PM Date of : 1960 Admit Type: Inpatient Age: 61 Gender: Female Attending MD: Rene Salazar MD Procedure: Flexible Sigmoidoscopy Providers: Rene Salazar MD Referring MD: Susan Keys Md Indications: Hematochezia, Abnormal CT of the GI tract Medicines: Propofol per Anesthesia Complications: No immediate complications. Estimated Blood Loss: Estimated blood loss: none. Procedure: Pre-Anesthesia Assessment: - Prior to the procedure, a History and Physical was performed, and patient medications, allergies and sensitivities were reviewed. The patient's tolerance of previous anesthesia was reviewed. - The risks and benefits of the procedure and the sedation options and risks were discussed with the patient. All questions were answered and informed consent was obtained. - Patient identification and proposed procedure were verified prior to the procedure by the physician and the nurse. The procedure was verified in the procedure room. - Pre-procedure physical examination revealed no contraindications to sedation. After obtaining informed consent, the endoscope was passed under direct vision. Throughout the procedure, the patient's blood pressure, pulse, and oxygen saturations were monitored continuously. The scope was introduced through the anus and advanced to the descending colon. The flexible sigmoidoscopy was accomplished without difficulty. The patient tolerated the procedure well. The quality of the bowel preparation was fair. Findings: The perianal and digital rectal examinations were normal. A fungating, infiltrative and ulcerated partially obstructing large mass was found in the sigmoid colon. The mass was partially circumferential. The mass measured six cm in length. Oozing was present. Biopsies were taken with a cold forceps for histology. Verification of patient identification for the specimen was done by the physician and nurse using the patient's name and date. Area was tattooed with an injection of 2 mL of Spot (carbon black). Non-bleeding internal hemorrhoids were found during retroflexion. The hemorrhoids were small. Impression: - Rule out malignancy, partially obstructing tumor in the sigmoid colon. Biopsied. Tattooed. - Non-bleeding internal hemorrhoids. Recommendation: - Return patient to [facility] for ongoing care. - Await pathology results. - If bleeding persists, consider transfer to a tertiary care center for IR embolization Vs palliative Surgical resection. Rene Salazar MD 09/26/2021 1:44:17 PM This report has been signed electronically. Note Initiated On: 09/26/2021 1:21 PM Number of Addenda: 0 I attest to the content of the Intraoperative Record and orders documented therein, exceptions below {[id number]}
--- NOTE | 2021-09-26 14:18 | Anesthesiology Progress Note ---
Date of Service September 26, 2021 Anesthesia Post Procedure Vital Signs Vital Signs: Temp Pulse Resp BP Pulse Ox Pulse Ox 09/26/21 14:11 109 H 16 158/106 H 97 09/26/21 13:56 112 H 16 149/92 H 09/26/21 13:41 107 H 16 127/86 100 09/26/21 13:15 36.7 C 118 H 16 132/91 97 09/26/21 08:33 36.7 C 112 H 16 132/78 96 09/25/21 21:50 96 09/25/21 20:44 37.1 C 118 H 18 132/69 96 09/25/21 15:02 37.6 C H 110 H 18 146/94 H 95 Pain Intensity Bilateral Abdomen: Pain Intensity: 0 Transfer of Care Handoff Completed per policy Notes Mental Status: alert / awake / arousable and participated in evaluation Patient Amnestic to Procedure: Yes Nausea / Vomiting: adequately controlled Pain: adequately controlled Airway Patency, RR, SpO2: stable & adequate BP & HR: stable & adequate Hydration State: stable & adequate Anesthetic Complications: no major complications apparent
[2021-09-26] MEDS: CIPROFLOXACIN / D5W 400 MG/200 ML BAG IV SCH (15:29)
[2021-09-26] MEDS: metroNIDAZOLE 500 MG TAB PO SCH ×2 (16:34→22:07)
--- NOTE | 2021-09-26 18:46 | Hospitalist Progress Note ---
Date of Service September 26, 2021 Assessment & Plan (1) Abnormal CT of the abdomen: (2) Abdominal pain: (3) Liver metastases: (4) Ascites: (5) Malignancy: Plan: CT abd showing multiple large masses in liver consistent with mets, IMV is thrombosed, PV and SMV have small nonocclusive thrombus, moderate ascites, 4.5x3.3cm mass along course of left IMV. Elevated CEA CA-19/ CA 125 pending status post paracentesis 09/25 with 4.5L removed. Cytology negative for chava gnancy Flex sig today showed large near obstructing mass in sigmoid colon, biopsied. She tolerated a regular diet post flex sig, but with near obstructing mass, will place on full liquid for now pending Palliative Care discussion. May need surgical consultation Oncology will follow once pathology result is available IMV thrombosis SMV and main portal also has small amount of nonocclusive thrombus No anticoagulation for now due to GI bleeding (6) Hypokalemia: Plan: replete PRN (7) Schizophrenia: Plan: Continue home med Plan: DVT ppx - no pharmacological agent for now in view of hematochezia SCD Admission and Anticipated Discharge Date Admission Date: September 23, 2021 Subjective Patient went for flex sig today post procedure she had dinner which she tolerated Physical Exam Physical Exam: Appears chronically ill, drowsy but no acute distress Respiratory: breathing comfortably on room air, no wheezing/rhonchi/rales Cardiovascular: regular rate and rhythm, no murmurs/rubs/gallops Gastrointestinal (Abdomen): +increased abdominal girth, nn tender Musculoskeletal: no edema Neurologic: drowsy but awake, spontaneously moving extremities Results & Data Results & Data ([facility]) Vital Signs (Past 12 Hours) Vital Signs Temp Pulse Resp BP Pulse Ox 09/26/21 15:57 36.8 C 110 H 18 128/79 96 09/26/21 14:20 144/94 H 09/26/21 14:11 109 H 16 158/106 H 97 09/26/21 13:56 112 H 16 149/92 H 09/26/21 13:41 107 H 16 127/86 100 09/26/21 13:15 36.7 C 118 H 16 132/91 97 09/26/21 08:33 36.7 C 112 H 16 132/78 96 Laboratory Results Short CBC 09/26/21 Range/Units 06:34 WBC 13.48 H (4.8-10.8) K/uL Hgb 9.4 L (12.0-16.0) g/dL Hct 28.8 L (37-47) % Plt Count 326 (130-400) K/uL BMP 09/26/21 06:34 Sodium 143 Potassium 3.6 Chloride 110 H Carbon Dioxide 23 BUN 28 H Creatinine 0.71 Glucose 138 H Calcium 9.1 Liver Function 09/26/21 Range/Units 06:34 Total Bilirubin 1.5 H (0.2-1.0) mg/dl AST 59 H (13-39) U/L ALT 21 (7-52) U/L Alkaline Phosphatase 398 H (34-104) U/L Albumin 3.0 L (3.4-5.0) gm/dl Medications Administered Current Inpatient Medications Dextrose (Dextrose 50% 50 Ml Syringe) 25 - 50 ml IV UD PRN; Protocol PRN Reason: Hypoglycemia Protocol Stop: 10/24/21 00:49 Fluphenazine HCl (Fluphenazine Hcl 2.5 Mg Tab) 5 mg PO AMHS SIM Stop: 10/25/21 20:59 Last Admin: 09/26/21 09:56 Dose: Not Given Documented by: Glucagon (Glucagon For Inj 1 Mg Vial) 1 mg SQ UD PRN; Protocol PRN Reason: Hypoglycemia Protocol Stop: 10/24/21 00:49 Glucose (Glucose 10 Tabs/Tube) 4 - 8 tabs PO UD PRN; Protocol PRN Reason: Hypoglycemia Protocol Stop: 10/24/21 00:49 Glucose (Glucose 40% Gel 15 Gm Tube) 15 - 30 gm PO UD PRN; Protocol PRN Reason: Hypoglycemia Protocol Stop: 10/24/21 00:49 Famotidine (Pepcid 20mg Iv Push) 20 mg in 5 mls @ 2.5 mls/min IV Q12 SIM Stop: 10/24/21 00:14 Last Admin: 09/26/21 09:57 Dose: 2.5 mls/min Documented by: Ciprofloxacin (Cipro / D5w) 400 mg in 200 mls @ 100 mls/hr IV Q12H SIM; Protocol Stop: 10/06/21 13:59 Last Infusion: 09/26/21 17:29 Dose: Infused Documented by: Insulin Aspart (Insulin Aspart Per Unit) 0 units SC ACHS [facility] Stop: 10/24/21 17:29 Last Admin: 09/26/21 16:45 Dose: 6 units Documented by: Metronidazole (Metronidazole 500 Mg Tab) 500 mg PO TID [facility]; Protocol Stop: 10/06/21 13:59 Last Admin: 09/26/21 16:34 Dose: 500 mg Documented by: Miscellaneous (Carbohydrates For Hypoglycemia ) 15 - 30 gm PO UD PRN PRN Reason: Hypoglycemia Protocol Stop: 10/24/21 00:49 Fluphenazine [ Prolixin] 5mg: Non- Formulary Patient's Own Med 1 ea PO BID [facility] Stop: 10/24/21 08:59 Last Admin: 09/26/21 16:35 Dose: 1 ea Documented by: Ondansetron HCl (Ondansetron Inj 2 Mg/Ml 2 Ml Vial) 4 mg IV Q6H PRN PRN Reason: Nausea Stop: 10/24/21 00:49 Trihexyphenidyl HCl (Trihexyphenidyl Hcl 5 Mg Tab) 7.5 mg PO DAILY [facility] Stop: 10/24/21 08:59 Last Admin: 09/26/21 16:46 Dose: 7.5 mg Documented by: (1) Abdominal pain Abdominal location: generalized Qualified Code(s): R10.84 - Generalized abdominal pain (2) Ascites Ascites type: malignant Qualified Code(s): R18.0 - Malignant ascites
[2021-09-27] MEDS: CIPROFLOXACIN / D5W 400 MG/200 ML BAG IV SCH ×2 (02:55→15:30)
[2021-09-27 07:18] LABS: Hematocrit (blood only) 28.9 % (37-47); Hemoglobin 9.3 g/dL (12.0-16.0); Mean Corpuscular Hemoglobin 27.6 pg (25-34); Mean Corpuscular Hgb Conc 32.2 g/dL (32-36); Mean Corpuscular Volume 85.8 fL (80-100); Mean Platelet Volume 10.6 fL (7.4-10.4); Platelet Count 301 K/uL (130-400); RDW Coefficient of Variation 16.3 % (11.5-14.5); RDW Standard Deviation 50.5 fL (36.4-46.3); Red Blood Count 3.37 M/uL (4.2-5.4); White Blood Count 11.25 K/uL (4.8-10.8)
[2021-09-27 07:21] LABS: Albumin Globulin Ratio 0.9 (0.9-2); BUN Creatinine Ratio 35.7 (10-20); Bilirubin,Total 1.6 mg/dl (0.2-1.0); Calcium 8.7 mg/dl (8.5-10.1); Creatinine Clr Calc Pharmacy 109.5 ml/min; Est GFR (African American) 109.9 ml/min; Est GFR (Non-African American) 94.8 ml/min; Globulin 3.2 gm/dl (2.5-4.0); Magnesium 2.1 mg/dl (1.7-2.4); Potassium 3.2 mmol/L (3.5-5.1); Total Protein 6.2 gm/dl (6.0-8.3)
[2021-09-27] MEDS: TRIHEXYPHENIDYL HCL 5 MG TAB PO SCH (08:52)
[2021-09-27] MEDS: FLUPHENAZINE 5 MG PO SCH ×2 (08:53→18:15)
[2021-09-27] MEDS: metroNIDAZOLE 500 MG TAB PO SCH ×3 (08:53→21:21)
[2021-09-27] MEDS: FAMOTIDINE 20MG IV PUSH 20 MG/5 ML SYR IV SCH (09:01)
[2021-09-27] MEDS: INSULIN ASPART PER UNIT SC SCH ×4 (09:17→21:21)
[2021-09-27] MEDS ORDERED: POTASSIUM CHLORIDE CRTAB 20 MEQ TABCR PO STA (09:58)
[2021-09-27] MEDS ORDERED: ALBUMIN 25% 100 mL 25 GM/100 ML VIAL IV ONE ×2 (10:19→14:00)
--- NOTE | 2021-09-27 10:36 | Gastroenterology Progress Note ---
Date of Service September 27, 2021 Assessment & Plan (1) Colonic mass: (2) Liver metastases: (3) Ascites: Plan: - Large volume paracentesis today to provide comfort, improve SOB - so she is able to ambulate better etc on discharge. 25GM albumin before and after. Pros/c ons discussed with pt via family and after an hour or so, the pt indicated that she wanted to go forward with the procedure so I placed the orders. - Other than the paracentesis, no further procedures planned from a GI perspective. - We are watching for colon mass bx to return - but feel certain that the colonoscopy finding was colon cancer and there there is metastatic disease per CT imaging, therefore not curable with chemo, radiation and/or surgery. Palliative has spoken with pt/family who have decided not to pursue treatment. Admission and Anticipated Discharge Date Admission Date: September 23, 2021 Supervising Physician Co-Signing Physician Notes I performed a history and physical examination of the patient today, including specifically on physical exam - soft abdomen. I have discussed the patient's management with the advanced practitioner. Please refer to the nurse practitioner's note for the documented findings and plan of care. Awaiting path. Palliative care consulted. Palliative paracentesis. Recall GI if needed. Subjective [address] with ovarian vs. colon mass and liver mets. Flex sig yesterday with colon mass, path pending. 09/24 paracentesis fluid cytology (-). Mild SOB and considerable discomfort secondary to large ascites. Plan is to return home w hospice or palliative care. + dark red blood liquid Bms Hb 9.3, stable from yesterday and has not needed transfusions. Review of Systems Review of Systems: ROS: Gen: Denies weakness, fevers, weight loss Eyes: No eye redness, or pain, no recent vision changes Resp: + mild SOB, no cough Cardio: No palpitations/irregular beats, no chest pain GI: + diffuse abd discomfort secondary to ascites; no nausea/vomiting; + bloody Bms. : Denies pain on urination Skin: No jaundice, itching or new rashes Physical Exam Constitutional: well developed, + ill appearing and cooperative; no acute distress Eyes: PERRL, conjunctivae normal, anicteric sclerae EOM intact bilaterally ENMT: external ear and nose normal, oropharynx normal Ears: + external ear abnormality; no hearing impairment Nose: + external nose abnormality Neck: trachea midline, no thyromegaly Respiratory: normal respiratory effort, lungs clear to auscultation Cardiovascular: RRR, no murmur, no edema Gastrointestinal (Abdomen): Inspection/Auscultation: + abdomen distended, normal bowel sounds and + hypoactive bowel sounds Percussion/Palpation: + abdomen tender (Mild diffuse abdominal tenderness. No signs of acute abdomen.), abdomen soft and + fluid wave (large, non taunt ascites); no guarding and abdomen not rigid Skin: no rashes, warm and dry normal turgor and + pallor Neurologic: PERRL, EOMI, accommodation nl, no face palsy, no dysarthria awake; not confused Psychiatric: A+Ox3, euthymic affect Lymphatic: no cervical or axillary lymphadenopathy Results & Data ([facility]) Vital Signs (Past 12 Hours) Vital Signs Temp Pulse Resp BP Pulse Ox 09/27/21 07:14 36.4 C L 105 H 17 134/76 95 09/27/21 02:41 36.8 C 108 H 20 153/82 H 96 09/26/21 23:00 36.4 C L 110 H 20 142/78 H 96 Laboratory Results Hb 11.25, Hc 9.3, Hct 28, Plts 301, Na 140, K 3.2, Cl 108, CO2 22, BUN 25, Cr 0.7, glucose 158. T Bili 1.6, AST 56, ALT 21, Alk Phos 404. INR 1.1 Diagnostic Findings CTAP w IV 09/23/21: 1. Multiple large masses seen throughout the liver consistent with metastatic disease. 2. The inferior mesenteric vein is completely thrombosed. The main portal vein and superior mesenteric vein also demonstrate a small amount of nonocclusive thrombus. 3. Moderate ascites. Mild thickening of the peritoneal lining on the left. This could represent developing peritoneal carcinomatosis. 4. Multiple enlarged lymph nodes and a 4.5 x 3.3 cm cystic mass along the course of the thrombosed left inferior mesenteric vein. There is also soft tissue thickening along the surface of the mid to distal sigmoid colon consistent with serosal implants in the setting of metastatic disease. This could be due to a primary colonic or ovarian malignancy. 5. Additional findings as described above. US 09/24/21: Successful ultrasound-guided paracentesis with removal of approximately 4.5 liters of ascitic fluid. (1) Ascites Ascites type: malignant Qualified Code(s): R18.0 - Malignant ascites
--- NOTE | 2021-09-27 11:00 | Palliative Care Consultation ---
Date of Consultation September 27, 2021 Assessment & Plan (1) Palliative care encounter: This is a 61 year old [place] robinson female who presented to the [facility] with abdominal distention, diarrhea, and urine and stool incontinence. She has been newly diagnosed with a new ovarian mass and a CTA revealed liver metastasis, a non occlusive thrombosis, and positive ascites. Additional PMH includes: schizophrenia. A paracentesis was performed on 09/25 with 4.5L removed. The fluid tested negative for malignancy. Another paracentesis is planned for today. A flex sig was performed and obstruction was noted in her sigmoid. Gastroenterology has evaluated the patient and discussed that no further GI i ntervention would be warranted as her cancer is not curable. Additionally, the family has indicated that she would not want aggressive measures taken with her care. Palliative Medicine was consulted to discuss and confirm goals of care. I met with Emy and her sister Bhumika, who is her POA in the room. The patient is primarily Niuean speaking, but was able to answer a few yes or no questions for me, including if she was having pain, which she indicated she had some soreness around her lower abdomen. Due to the nature of her illness and the importance of using a third green party medical translator for decision making, I was able to use the [employer] Ipad and contact Fani #[phone] as a Niuean speaking french translator. I also was able to conference Shannan at [phone], the patient's niece to be on the call as well as she has primarily helped navigate logistics regarding her care. The patient lives at home with her 92 year old mother and another sister Sanford who is her (the 92 year olds) primary caregiver. Ultimately, the french translator did express the gravity of her illness and lack of treatment options that have been indicated due to the metastatic nature of her cancer diagnosis. The patient verbalized understanding and also indicated that she would be comfortable with going home with hospice. All family members were in agreement. We also discussed code status with the main POA, Bhumika who did confirm DNR/DNI. Unfortunately, the patient has some confusion and while she can be involved with decision making would not be reliable for decision making overall. The patients POA Bhumika clarified to transition her to DNR/DNI status, which is now reflected in the computer. I did communicate the above with the hospitalist and manager of case management who will move forward with arranging home with hospice. Please contact palliative medicine should any additional needs arrise. (2) Ovarian mass, left: Pt expressed she has some pulling in her abdomen, but overall no pain. Hospice can follow when she returns home for further pain regimen. Should pain arise and worsen, please contact palliative medicine. (3) Ascites: Last paracentesis done 09/25 - 4.5L removed. Plan for repeat paracentesis today. Ascites type: malignant Qualified Code(s): R18.0 - Malignant ascites (4) Liver metastases: History of Present Illness Reason for Consultation: Goals of care Requesting Physician: Festus GAYTAN Attending Physician: Xavier Keys MD History of Present Illness This is a 61 year old [place] robinson female who presented to the [facility] with abdominal distention, diarrhea, and urine and stool incontinence. She has been newly diagnosed with a new ovarian mass and a CTA revealed liver metastasis, a non occlusive thrombosis, and positive ascites. Additional PMH includes: schizophrenia. A paracentesis was performed on 09/25 with 4.5L removed. The fluid tested negative for malignancy. Another paracentesis is planned for today. A flex sig was performed and obstruction was noted in her sigmoid. Gastroenterology has evaluated the patient and discussed that no further GI intervention would be warranted as her cancer is not curable. Additionally, the family has indicated that she would not want aggressive measures taken with her care. Palliative Medicine was consulted to discuss and confirm goals of care. Please see A/P for further details. Thanks for involving Palliative Medicine with this individual. Allergies Allergy/AdvReac Type Severity Reaction Status Date / Time No Known Drug Allergies Allergy Unknown Verified 09/23/21 17:56 Home Medications Medication Instructions Recorded Confirmed Type fluphenazine HCl 5 mg tablet 5 mg PO AMHS tab 12/10/18 09/23/21 History trihexyphenidyl 5 mg tablet 7.5 mg PO DAILY tab 12/10/18 09/23/21 History Patient History Medical History (Updated 09/27/21 @ 13:25 by LUCILA Nix) Impaired fasting glucose Morbid obesity Palliative care encounter Schizophrenia Tinnitus Social History Smoking Status: Never smoker Hx Alcohol Use: No Hx Substance Use: No Preferred Language: Niuean Communication Ability: Effective Communication Tools: IPad and Other Roof Fixer Required: Yes Beliefs That Will Affect Care: None Current Living Situation: Family Feels Safe at Home: Yes Assistive Devices: None Review of Systems Review of Systems: Thornton System Assessment Scale: Pain: 1/3 SOB: 0/3 Nausea: 0/3 Tiredness: 2/3 Palliative Performance Scale: 40% Physical Exam Constitutional: + frail appearing and cooperative ENMT: Mouth: + dry oral mucous membranes Respiratory: normal respiratory effort Auscultation: lungs clear to auscultation bilaterally Cardiovascular: Rate/Rhythm: regular rate and regular rhythm Heart Sounds: normal S1 and normal S2 Gastrointestinal (Abdomen): Inspection/Auscultation: abdomen normal to inspection Skin: + pallor Psychiatric: Orientation: alert and oriented x 3 Insight: + limited insight Judgement: + limited judgement Results & Data ([facility]) Vital Signs (Past 12 Hours) Vital Signs Temp Pulse Resp BP Pulse Ox 09/27/21 07:14 36.4 C L 105 H 17 134/76 95 09/27/21 02:41 36.8 C 108 H 20 153/82 H 96 09/26/21 23:00 36.4 C L 110 H 20 142/78 H 96 PG Care Time/CCT Total # of Minutes Spent Total Time Spent with Patient: Total time spent is greater than 50% in coordination of care (as documented) at patient's floor/unit and/or counseling patient: 100 mintues Coding Level of Care Code 07522 Initial Inpt Care Lvl 3 Diagnoses Palliative care encounter Z51.5 Ovarian mass, left N83.8 Ascites R18.0 Ascites type: malignant Liver metastases C78.7 Time Spent (min) 100
--- NOTE | 2021-09-27 14:23 | Ultrasound Report ---
ULTRASOUND GUIDED THERAPEUTIC PARACENTESIS CLINICAL HISTORY: Ascites. COMPARISON STUDY: CT of the abdomen and pelvis September 23, 2021. PROCEDURE: The risks, benefits, and alternatives to the procedure were discussed with the patient inc luding the risk of bleeding, infection and injury to adjacent structures. The patient agreed to the procedure and informed written consent was obtained. Following real-time ultrasound localization, the skin of the left lower quadrant was prepped and draped. Following local anesthesia with Xylocaine, t he sheath paracentesis needle was inserted and approximately 5.1 liters of straw-colored fluid was re moved by vacuum suction. Postprocedural ultrasound demonstrated no residual fluid. The patient tolerated the procedure well and no immediate complications were evident. IMPRESSION: Ultrasound-guided paracentesis with removal of 5.1 liters of ascites. ACT 112: Negative or not required by law. Electronically signed by: Richie Willard M.D. 09/27/2021 2:22 PM
--- NOTE | 2021-09-27 19:24 | Hospitalist Progress Note ---
Date of Service September 27, 2021 Assessment & Plan (1) Abnormal CT of the abdomen: (2) Abdominal pain: (3) Liver metastases: (4) Ascites: (5) Malignancy: Plan: CT abd showing multiple large masses in liver consistent with mets, IMV is thrombosed, PV and SMV have small nonocclusive thrombus, moderate ascites, 4.5x3.3cm mass along course of left IMV. Elevated CEA CA-19/ CA 125 pending status post paracentesis 09/25 with 4.5L removed. Cytology negative for chava gnancy s/p large volume paracentesis today. She may need weekly paracentesis for comfort Flex sig 09/26 showed large near obstructing mass in sigmoid colon, biopsied. She tolerated a regular diet post flex sig, but with near obstructing mass, she was placed on a full liquid diet. Palliative care met with family and patient today and they do not wish to pursue aggressive management. they would like home hospice to be set up. IMV thrombosis SMV and main portal also has small amount of nonocclusive thrombus No anticoagulation for now due to GI bleeding (6) Hypokalemia: Plan: replete PRN (7) Schizophrenia: Plan: Continue home med Plan: DVT ppx - no pharmacological agent for now in view of hematochezia SCD Discharge pending home hospice set up Admission and Anticipated Discharge Date Admission Date: September 23, 2021 Subjective Patient had a family meeting today with Palliative care. She and family requesting home with hospice she is tolerating her diet she had a large volume paracentesis today Physical Exam Physical Exam: Appears chronically ill, no acute distress Respiratory: breathing comfortably on room air, no wheezing/rhonchi/rales Cardiovascular: regular rate and rhythm, no murmurs/rubs/gallops Gastrointestinal (Abdomen): decreased abdominal girth Musculoskeletal: no edema Neurologic: awake, alert, eating dinner currently Results & Data Results & Data ([facility]) Vital Signs (Past 12 Hours) Vital Signs Temp Pulse Resp BP Pulse Ox 09/27/21 16:44 36.7 C 100 H 18 136/80 95 09/27/21 14:43 36.8 C 101 H 18 138/82 96 09/27/21 14:10 37.4 C 98 H 18 145/85 H 96 09/27/21 12:55 36.7 C 101 H 20 135/79 96 09/27/21 11:07 36.6 C 110 H 18 133/79 95 Laboratory Results Short CBC 09/27/21 Range/Units 06:30 WBC 11.25 H (4.8-10.8) K/uL Hgb 9.3 L (12.0-16.0) g/dL Hct 28.9 L (37-47) % Plt Count 301 (130-400) K/uL BMP 09/27/21 06:30 Sodium 140 Potassium 3.2 L Chloride 108 H Carbon Dioxide 22 BUN 25 H Creatinine 0.70 Glucose 158 H Calcium 8.7 Liver Function 09/27/21 Range/Units 06:30 Total Bilirubin 1.6 H (0.2-1.0) mg/dl AST 56 H (13-39) U/L ALT 21 (7-52) U/L Alkaline Phosphatase 404 H (34-104) U/L Albumin 3.0 L (3.4-5.0) gm/dl Medications Administered Current Inpatient Medications Dextrose (Dextrose 50% 50 Ml Syringe) 25 - 50 ml IV UD PRN; Protocol PRN Reason: Hypoglycemia Protocol Stop: 10/24/21 00:49 Fluphenazine HCl (Fluphenazine Hcl 2.5 Mg Tab) 5 mg PO AMHS SIM Stop: 10/25/21 20:59 Last Admin: 09/27/21 08:54 Dose: Not Given Documented by: Glucagon (Glucagon For Inj 1 Mg Vial) 1 mg SQ UD PRN; Protocol PRN Reason: Hypoglycemia Protocol Stop: 10/24/21 00:49 Glucose (Glucose 10 Tabs/Tube) 4 - 8 tabs PO UD PRN; Protocol PRN Reason: Hypoglycemia Protocol Stop: 10/24/21 00:49 Glucose (Glucose 40% Gel 15 Gm Tube) 15 - 30 gm PO UD PRN; Protocol PRN Reason: Hypoglycemia Protocol Stop: 10/24/21 00:49 Ciprofloxacin (Cipro / D5w) 400 mg in 200 mls @ 100 mls/hr IV Q12H [facility]; Protocol Stop: 10/06/21 13:59 Last Infusion: 09/27/21 17:33 Dose: Infused Documented by: Famotidine 20 mg/ Syringe 5 mls @ 2.5 mls/min IV Q12 [facility] Stop: 10/27/21 20:59 Insulin Aspart (Insulin Aspart Per Unit) 0 units SC ACHS [facility] Stop: 10/24/21 17:29 Last Admin: 09/27/21 18:04 Dose: 1 units Documented by: Metronidazole (Metronidazole 500 Mg Tab) 500 mg PO TID [facility]; Protocol Stop: 10/06/21 13:59 Last Admin: 09/27/21 14:45 Dose: 500 mg Documented by: Miscellaneous (Carbohydrates For Hypoglycemia ) 15 - 30 gm PO UD PRN PRN Reason: Hypoglycemia Protocol Stop: 10/24/21 00:49 Fluphenazine [ Prolixin] 5mg: Non- Formulary Patient's Own Med 1 ea PO BID [facility] Stop: 10/24/21 08:59 Last Admin: 09/27/21 18:15 Dose: 1 ea Documented by: Ondansetron HCl (Ondansetron Inj 2 Mg/Ml 2 Ml Vial) 4 mg IV Q6H PRN PRN Reason: Nausea Stop: 10/24/21 00:49 Trihexyphenidyl HCl (Trihexyphenidyl Hcl 5 Mg Tab) 7.5 mg PO DAILY [facility] Stop: 10/24/21 08:59 Last Admin: 09/27/21 08:52 Dose: 7.5 mg Documented by: (1) Abdominal pain Abdominal location: generalized Qualified Code(s): R10.84 - Generalized abdominal pain (2) Ascites Ascites type: malignant Qualified Code(s): R18.0 - Malignant ascites
[2021-09-27] MEDS: FAMOTIDINE 20 MG in SYRINGE 3 ML IV SCH (21:20)
[2021-09-28] MEDS: CIPROFLOXACIN / D5W 400 MG/200 ML BAG IV SCH ×2 (02:25→13:36)
[2021-09-28 07:00] LABS: Hemoglobin 9.1 g/dL (12.0-16.0); Mean Corpuscular Hemoglobin 27.9 pg (25-34); Mean Corpuscular Hgb Conc 32.5 g/dL (32-36); Mean Corpuscular Volume 85.9 fL (80-100); Mean Platelet Volume 10.9 fL (7.4-10.4); Platelet Count 312 K/uL (130-400); RDW Coefficient of Variation 16.3 % (11.5-14.5); RDW Standard Deviation 50.3 fL (36.4-46.3); Red Blood Count 3.26 M/uL (4.2-5.4); White Blood Count 9.42 K/uL (4.8-10.8)
[2021-09-28 07:08] LABS: BUN Creatinine Ratio 30.5 (10-20); Creatinine Clr Calc Pharmacy 129.9 ml/min; Est GFR (African American) 116.3 ml/min; Est GFR (Non-African American) 100.3 ml/min; Potassium 3.3 mmol/L (3.5-5.1)
[2021-09-28] MEDS: INSULIN ASPART PER UNIT SC SCH ×4 (09:58→21:24)
[2021-09-28] MEDS: FAMOTIDINE 20 MG in SYRINGE 3 ML IV SCH ×2 (09:58→21:24)
[2021-09-28] MEDS: TRIHEXYPHENIDYL HCL 5 MG TAB PO SCH ×2 (09:58→10:39)
[2021-09-28] MEDS: FLUPHENAZINE 5 MG PO SCH ×3 (09:58→20:13)
[2021-09-28] MEDS: metroNIDAZOLE 500 MG TAB PO SCH ×3 (09:58→14:54)
--- NOTE | 2021-09-28 15:07 | Communication Note ---
Date of Service: September 28, 2021 Path results reviewed with patient and her sister: Moderately differentiated adenocarcinoma. Appreciate palliative care and hospitalists management of pt needs going forward.
[2021-09-28] MEDS ORDERED: POTASSIUM CHLORIDE CRTAB 20 MEQ TABCR PO STA (16:43)
[2021-09-28] MEDS ORDERED: LORazepam 2 MG/1 ML VIAL IV PRN (18:11)
[2021-09-28] MEDS ORDERED: HYDROmorphone INJ 0.5 MG/0.5 ML SYR IV PRN (18:11)
--- NOTE | 2021-09-28 19:23 | Hospitalist Progress Note ---
Date of Service September 28, 2021 Assessment & Plan (1) Abnormal CT of the abdomen: (2) Abdominal pain: (3) Liver metastases: (4) Ascites: (5) Malignancy: Plan: CT abd showing multiple large masses in liver consistent with mets, IMV is thrombosed, PV and SMV have small nonocclusive thrombus, moderate ascites, 4.5x3.3cm mass along course of left IMV. status post paracentesis 09/25 with 4.5L removed. Cytology negative for malignancy s/p large volume paracentesis 09/27. She may need weekly paracentesis for comfort Flex sig 09/26 showed large near obstructing mass in sigmoid colon, biopsied. Biopsy came back adenocarcinoma. Palliative care met with family and patient yesterday and they have requested home hospice. I discussed again with patient in presence of her sister and while she is here, they have agreed to transition her to comfort measures. IMV thrombosis SMV and main portal also has small amount of nonocclusive thrombus No anticoagulation for now due to GI bleeding (6) Hypokalemia: (7) Schizophrenia: Plan: Continue home med Plan: DVT ppx - no pharmacological agent for now in view of hematochezia SCD Disposition- Family will be unable to care for patient at home. CM will work on placing her into a facility for hospice but process will be delayed for several reasons. While here, patient wants to be on comfort measures Admission and Anticipated Discharge Date Admission Date: September 23, 2021 Subjective Notified by RN that patient overnight felt like she was "dying" Today, via jacquard lace weaver ipad, I spoke with patient and her sister (Mervat) to confirm her wish that she does not aggressive management. After a lengthy discussion, patient ultimately decided that she wants to remain a DNR/DNI and want to remain comfortable and not pursue aggressive treatment or measures. We discussed initiating comfort measures while she is in the hospital and she is in agreement. Physical Exam Physical Exam: Appears pale, chronically ill Respiratory: breathing comfortably on room air, diminished at bases, no wheezing/rhonchi/rales Cardiovascular: mildly tachycardic but regular, no murmurs Gastrointestinal (Abdomen): +increased abdominal girth, non tender currently Musculoskeletal: trace edema Genitourinary: fecal management tube in place Results & Data Results & Data ([facility]) Vital Signs (Past 12 Hours) Vital Signs Temp Pulse Pulse Resp BP Pulse Ox 09/28/21 14:42 36.8 C 109 H 16 139/81 96 09/28/21 12:19 36.7 C 109 H 14 153/88 H 94 09/28/21 07:35 36.7 C 110 H 16 151/88 H 95 Laboratory Results Short CBC 09/28/21 Range/Units 05:49 WBC 9.42 (4.8-10.8) K/uL Hgb 9.1 L (12.0-16.0) g/dL Hct 28.0 L (37-47) % Plt Count 312 (130-400) K/uL BMP 09/28/21 05:49 Sodium 140 Potassium 3.3 L Chloride 107 Carbon Dioxide 22 BUN 18 Creatinine 0.59 L Glucose 141 H Calcium 9.0 Medications Administered Current Inpatient Medications Dextrose (Dextrose 50% 50 Ml Syringe) 25 - 50 ml IV UD PRN; Protocol PRN Reason: Hypoglycemia Protocol Stop: 10/24/21 00:49 Glucagon (Glucagon For Inj 1 Mg Vial) 1 mg SQ UD PRN; Protocol PRN Reason: Hypoglycemia Protocol Stop: 10/24/21 00:49 Glucose (Glucose 10 Tabs/Tube) 4 - 8 tabs PO UD PRN; Protocol PRN Reason: Hypoglycemia Protocol Stop: 10/24/21 00:49 Glucose (Glucose 40% Gel 15 Gm Tube) 15 - 30 gm PO UD PRN; Protocol PRN Reason: Hypoglycemia Protocol Stop: 10/24/21 00:49 Hydromorphone HCl (Hydromorphone Inj 0.5 Mg/0.5 Ml Syr) 0.25 mg IV Q4 PRN PRN Reason: Pain Stop: 10/12/21 18:10 Famotidine 20 mg/ Syringe 5 mls @ 2.5 mls/min IV Q12 SIM Stop: 10/27/21 20:59 Last Admin: 09/28/21 09:58 Dose: 2.5 mls/min Documented by: Insulin Aspart (Insulin Aspart Per Unit) 0 units SC ACHS SIM Stop: 10/24/21 17:29 Last Admin: 09/28/21 17:59 Dose: Not Given Documented by: Lorazepam (Lorazepam 2 Mg/1 Ml Vial) 0.25 mg IV Q4H PRN PRN Reason: anxiety Stop: 10/28/21 18:10 Miscellaneous (Carbohydrates For Hypoglycemia ) 15 - 30 gm PO UD PRN PRN Reason: Hypoglycemia Protocol Stop: 10/24/21 00:49 Fluphenazine [ Prolixin] 5mg: Non- Formulary Patient's Own Med 1 ea PO BID [facility] Stop: 10/24/21 08:59 Last Admin: 09/28/21 10:38 Dose: 1 ea Documented by: Ondansetron HCl (Ondansetron Inj 2 Mg/Ml 2 Ml Vial) 4 mg IV Q6H PRN PRN Reason: Nausea Stop: 10/24/21 00:49 Trihexyphenidyl HCl (Trihexyphenidyl Hcl 5 Mg Tab) 7.5 mg PO DAILY [facility] Stop: 10/24/21 08:59 Last Admin: 09/28/21 10:39 Dose: 7.5 mg Documented by: (1) Abdominal pain Abdominal location: generalized Qualified Code(s): R10.84 - Generalized abdominal pain (2) Ascites Ascites type: malignant Qualified Code(s): R18.0 - Malignant ascites
[2021-09-29] MEDS: INSULIN ASPART PER UNIT SC SCH ×4 (08:34→21:01)
[2021-09-29] MEDS: TRIHEXYPHENIDYL HCL 5 MG TAB PO SCH ×2 (10:21→19:28)
[2021-09-29] MEDS: FLUPHENAZINE 5 MG PO SCH ×2 (10:22→19:27)
[2021-09-29] MEDS: FAMOTIDINE 20 MG in SYRINGE 3 ML IV SCH ×2 (10:23→21:01)
--- NOTE | 2021-09-29 13:18 | Hospitalist Progress Note ---
Date of Service September 29, 2021 Assessment & Plan (1) Abnormal CT of the abdomen: (2) Abdominal pain: (3) Liver metastases: (4) Ascites: (5) Malignancy: Plan: CT abd showing multiple large masses in liver consistent with metastatic disease, IMV is thrombosed, PV and SMV have small nonocclusive thrombus, moderate ascites, 4.5x3.3cm mass along course of left IMV. status post paracentesis 09/25 with 4.5L removed. Cytology negative for malignancy s/p large volume paracentesis 09/27. She may need weekly paracentesis for comfort Flex sig 09/26 showed large near obstructing mass in sigmoid colon, biopsied. Biopsy came back adenocarcinoma. Palliative care met with family and patient on 09/27 and they have requested home hospice. Yesterday, patient requested to be transitioned to comfort measures while in the hospital. IMV thrombosis SMV and main portal also has small amount of nonocclusive thrombus No anticoagulation for now due to GI bleeding (6) Hypokalemia: (7) Schizophrenia: Plan: Continue home med Plan: DVT ppx - no pharmacological agent for now in view of hematochezia SCD Disposition- Family will be unable to care for patient at home. CM will work on placing her into a facility for hospice but process will be delayed for several reasons. While here, patient wants to be on comfort measures Admission and Anticipated Discharge Date Admission Date: September 23, 2021 Subjective Patient denies pain, discomfort, tolerating full liquid diet Bhumika (other sister) is visiting currently Physical Exam Physical Exam: Appears chronically ill, pale Respiratory: breathing comfortably on room air, no wheezing/rhonchi/rales Cardiovascular: regular rate and rhythm, no murmurs/rubs/gallops Gastrointestinal (Abdomen): +increased girth, hypoactive bowel sounds Neurologic: awake, spontaneously moving extremities Results & Data Results & Data ([facility]) Medications Administered Current Inpatient Medications Dextrose (Dextrose 50% 50 Ml Syringe) 25 - 50 ml IV UD PRN; Protocol PRN Reason: Hypoglycemia Protocol Stop: 10/24/21 00:49 Glucagon (Glucagon For Inj 1 Mg Vial) 1 mg SQ UD PRN; Protocol PRN Reason: Hypoglycemia Protocol Stop: 10/24/21 00:49 Glucose (Glucose 10 Tabs/Tube) 4 - 8 tabs PO UD PRN; Protocol PRN Reason: Hypoglycemia Protocol Stop: 10/24/21 00:49 Glucose (Glucose 40% Gel 15 Gm Tube) 15 - 30 gm PO UD PRN; Protocol PRN Reason: Hypoglycemia Protocol Stop: 10/24/21 00:49 Hydromorphone HCl (Hydromorphone Inj 0.5 Mg/0.5 Ml Syr) 0.25 mg IV Q4 PRN PRN Reason: Pain Stop: 10/12/21 18:10 Famotidine 20 mg/ Syringe 5 mls @ 2.5 mls/min IV Q12 SIM Stop: 10/27/21 20:59 Last Admin: 09/29/21 10:23 Dose: 2.5 mls/min Documented by: Insulin Aspart (Insulin Aspart Per Unit) 0 units SC ACHS SIM Stop: 10/24/21 17:29 Last Admin: 09/29/21 12:56 Dose: 2 units Documented by: Lorazepam (Lorazepam 2 Mg/1 Ml Vial) 0.25 mg IV Q4H PRN PRN Reason: anxiety Stop: 10/28/21 18:10 Miscellaneous (Carbohydrates For Hypoglycemia ) 15 - 30 gm PO UD PRN PRN Reason: Hypoglycemia Protocol Stop: 10/24/21 00:49 Fluphenazine [ Prolixin] 5mg: Non- Formulary Patient's Own Med 1 ea PO BID [facility] Stop: 10/24/21 08:59 Last Admin: 09/29/21 10:22 Dose: 1 ea Documented by: Ondansetron HCl (Ondansetron Inj 2 Mg/Ml 2 Ml Vial) 4 mg IV Q6H PRN PRN Reason: Nausea Stop: 10/24/21 00:49 Trihexyphenidyl HCl (Trihexyphenidyl Hcl 5 Mg Tab) 3.75 mg PO BID [facility] Stop: 10/29/21 08:59 Last Admin: 09/29/21 10:21 Dose: 3.75 mg Documented by: (1) Ascites Ascites type: malignant Qualified Code(s): R18.0 - Malignant ascites (2) Abdominal pain Abdominal location: generalized Qualified Code(s): R10.84 - Generalized abdominal pain
[2021-09-30] MEDS: FAMOTIDINE 20 MG in SYRINGE 3 ML IV SCH ×2 (08:44→21:51)
[2021-09-30] MEDS: TRIHEXYPHENIDYL HCL 5 MG TAB PO SCH ×2 (08:44→21:52)
[2021-09-30] MEDS: FLUPHENAZINE 5 MG PO SCH ×2 (08:44→21:53)
[2021-09-30] MEDS: INSULIN ASPART PER UNIT SC SCH ×4 (09:31→22:05)
[2021-09-30] MEDS: POLYETHYLENE (MIRALAX) 17 GM PACK PO SCH (09:53)
[2021-09-30] MEDS: FUROSEMIDE 40 MG TAB PO SCH (10:05)
--- NOTE | 2021-09-30 15:15 | Hospitalist Progress Note ---
Date of Service September 30, 2021 Assessment & Plan (1) Abnormal CT of the abdomen: (2) Abdominal pain: (3) Liver metastases: (4) Ascites: Plan: Appears to have re-accumulated causing her significant discomfort will start lasix 40mg PO daily to help with management, but I think she may need another therapeutic paracentesis. Family is inquiring about a catheter for ascites drainage--> I am uncertain what this is--> will d/w GI tomorrow (5) Malignancy: Plan: CT abd showing multiple large masses in liver consistent with metastatic disease, IMV is thrombosed, PV and SMV have small nonocclusive thrombus, moderate ascites, 4.5x3.3cm mass along course of left IMV. status post paracentesis 09/25 with 4.5L removed. Cytology negative for malignancy s/p large volume paracentesis 09/27. She may need weekly paracentesis for comfort Flex sig 09/26 showed large near obstructing mass in sigmoid colon, biopsied. Biopsy came back adenocarcinoma. Palliative care met with family and patient on 09/27 and they have requested home hospice. 09/28, after discussion with patient she was transitioned to comfort measures while in the hospital awaiting placement (6) Hypokalemia: (7) Schizophrenia: Plan: Continue home med (8) Comfort measures only status: Plan: IMV thrombosis SMV and main portal also has small amount of nonocclusive thrombus No anticoagulation for now due to GI bleeding Disposition- Family will be unable to care for patient at home. CM will work on placing her into a facility for hospice but process will be delayed for several reasons. While here, patient wants to be on comfort measures Admission and Anticipated Discharge Date Admission Date: September 23, 2021 Subjective Patient with increasing abdominal distension again causing discomfort Remains here on comfort measures and awaiting placement to facility for hospice Family asking about "catheter" for continuos drainage of ascitic fluid. Physical Exam Physical Exam: Appears chronically ill, uncomfortable but non toxic, pale Respiratory: No wheezing/rhonchi/rales Cardiovascular: Mildly tachycardic, no murmurs/rubs Gastrointestinal (Abdomen): +increased abdominal girth Musculoskeletal: No edema Genitourinary: Gillespie catheter and rectal management system in place (1) Abdominal pain Abdominal location: generalized Qualified Code(s): R10.84 - Generalized abdominal pain (2) Ascites Ascites type: malignant Qualified Code(s): R18.0 - Malignant ascites
[2021-10-01] MEDS: POLYETHYLENE (MIRALAX) 17 GM PACK PO SCH (09:05)
[2021-10-01] MEDS: TRIHEXYPHENIDYL HCL 5 MG TAB PO SCH ×2 (09:05→20:21)
[2021-10-01] MEDS: FLUPHENAZINE 5 MG PO SCH ×2 (09:06→20:21)
[2021-10-01] MEDS: INSULIN ASPART PER UNIT SC SCH ×4 (09:13→20:40)
[2021-10-01] MEDS: FUROSEMIDE 40 MG TAB PO SCH (09:13)
[2021-10-01] MEDS: FAMOTIDINE 20 MG in SYRINGE 3 ML IV SCH ×2 (09:14→20:26)
--- NOTE | 2021-10-01 10:35 | Palliative Care Progress Note ---
Date of Service October 01, 2021 Assessment & Plan (1) Palliative care encounter: Plan: I met with Emy and her sister Bhumika, who is her POA in the room. We had a lengthy family meeting last week and the family indicated they would not be able to care for the patient 27/01 at home. Case management has been working on alternate placement; however, is proving difficult due to the family declining COVID-19 vaccination due to judaism reasons after further discussion with the patients sister, along with general staffing concerns at [facility]. Confirmed that the family would prefer a more conservative approach to her care, including comfort measure transition while here in the hospital. Janis had some questions regarding life expectancy. The patient is continuing to eat and is awake, alert and able to communicate. While her tumor progression and s ymptoms appear to be worsening, I anticipate that she is likely in the weeks to a month of life remaining. (2) Ascites: Plan: Related to tumor burdon. Increased distention Last paracentesis done 09/25 - 4.5L removed. Discussed with hospitalist that while she is here in, palliative paracentesis may be beneficial from a symptom management perspective. Hospitalist will discuss with GI. Anticipate she likely will require weekly paracentesis while here. as able. Plan for palliative paracentesis today. I did set expectation with family that the distention/ascites and abdominal pain will increase as tumor burden progresses. (3) Ovarian mass, left: Plan: Increased abdominal distention. Renal function ok. Last Creatinine 0.59 Do think it would be beneficial to schedule opioids as it does appear patient is uncomfortable, and she states she is. Discussed with sister and patient. Neither are receptive to do so. Pt with tachycardia in 115 range, can be related to pain. Continue to have Dilaudid 0.25mg IV Q4 PRN Admission and Anticipated Discharge Date Admission Date: September 23, 2021 Subjective Pt lying flat in her room due to increased pressure on her abdomen. Pt calm, and in no apparent distress Pt sister requesting a palliative paracentesis. Pt has opioid regimen ordered, but has not utilized any dosing. See A/P for further details Review of Systems Review of Systems: [place] System Assessment Scale: Pain: 1/3 SOB: 1/3 Nausea: 0/3 Tiredness: 2/3 Palliative Performance Scale: 30% Physical Exam Constitutional: + frail appearing and cooperative ENMT: Mouth: + dry oral mucous membranes Respiratory: normal respiratory effort Auscultation: lungs clear to auscultation bilaterally Cardiovascular: Rate/Rhythm: regular rate and regular rhythm Heart Sounds: normal S1 and normal S2 Gastrointestinal (Abdomen): Inspection/Auscultation: abdomen normal to inspection, + abdomen distended and normal bowel sounds Skin: + pallor Psychiatric: Orientation: alert and oriented x 3 Insight: + limited insight Judgement: + limited judgement PG Care Time/CCT Total # of Minutes Spent Total Time Spent with Patient: Total time spent is greater than 50% in coordination of care (as documented) at patient's floor/unit and/or counseling patient:45 minutes Coding Level of Care Code 55887 Subseq Hosp Care Lvl 3 Diagnoses Palliative care encounter Z51.5 Ovarian mass, left N83.8 Ascites R18.8 Time Spent (min) 45
[2021-10-01 11:47] LABS: Hematocrit (blood only) 30.6 % (37-47); Hemoglobin 10.1 g/dL (12.0-16.0); Mean Corpuscular Hemoglobin 27.8 pg (25-34); Mean Corpuscular Volume 84.3 fL (80-100); Mean Platelet Volume 9.9 fL (7.4-10.4); Platelet Count 427 K/uL (130-400); RDW Coefficient of Variation 16.3 % (11.5-14.5); RDW Standard Deviation 50.3 fL (36.4-46.3); Red Blood Count 3.63 M/uL (4.2-5.4); White Blood Count 13.78 K/uL (4.8-10.8)
[2021-10-01 12:08] LABS: INR 1.1 (0.9-1.1); Prothrombin Time 11.8 Seconds (9.0-12.0)
[2021-10-01 12:11] LABS: BUN Creatinine Ratio 27.1 (10-20); Creatinine Clr Calc Pharmacy 109.5 ml/min; Est GFR (African American) 109.9 ml/min; Est GFR (Non-African American) 94.8 ml/min; Potassium 3.7 mmol/L (3.5-5.1)
--- NOTE | 2021-10-01 14:31 | Hospitalist Progress Note ---
Date of Service October 01, 2021 Assessment & Plan (1) Abnormal CT of the abdomen: (2) Abdominal pain: (3) Liver metastases: (4) Ascites: Plan: Appears to have re-accumulated causing her significant discomfort Continue lasix 40mg PO daily to help with management 09/25 Paracentesis 4.5L removed 09/27- 4+ L removed 10/01 pending repeat paracentesis She will likely need weekly palliative paracentesis. Labs ordered today in anticipation (5) Malignancy: Plan: CT abd showing multiple large masses in liver consistent with metastatic disease, IMV is thrombosed, PV and SMV have small nonocclusive thrombus, moderate ascites, 4.5x3.3cm mass along course of left IMV. status post paracentesis 09/25 with 4.5L removed. Cytology negative for malignancy s/p large volume paracentesis 09/27. She may need weekly paracentesis for comfort Flex sig 09/26 showed large near obstructing mass in sigmoid colon, biopsied. Biopsy came back adenocarcinoma. Palliative care met with family and patient on 09/27 and they have requested home hospice. 09/28, after discussion with patient she was transitioned to comfort measures while in the hospital awaiting placement (6) Hypokalemia: (7) Schizophrenia: Plan: Continue home med (8) Comfort measures only status: Plan: IMV thrombosis SMV and main portal also has small amount of nonocclusive thrombus No anticoagulation for now due to GI bleeding Disposition- Family will be unable to care for patient at home. CM will work on placing her into a facility for hospice but process will be delayed for several reasons. While here, patient wants to be on comfort measures Admission and Anticipated Discharge Date Admission Date: September 23, 2021 Subjective Increasing abdominal discomfort. Patient agreeable for paracentesis for comfort Physical Exam Physical Exam: Appears weak, pale, chronically ill Respiratory: Breathing comfortably, no wheezing/rhonchi/rales Cardiovascular: Tachycardic but no murmurs/rubs/gallops Gastrointestinal (Abdomen): +increased girth Neurologic: awake, alert Results & Data Results & Data ([facility]) Laboratory Results Short CBC 10/01/21 Range/Units 11:36 WBC 13.78 H (4.8-10.8) K/uL Hgb 10.1 L (12.0-16.0) g/dL Hct 30.6 L (37-47) % Plt Count 427 H (130-400) K/uL BMP 10/01/21 11:36 Sodium 136 Potassium 3.7 Chloride 106 Carbon Dioxide 20 L BUN 19 Creatinine 0.70 Glucose 153 H Calcium 9.0 Medications Administered Current Inpatient Medications Dextrose (Dextrose 50% 50 Ml Syringe) 25 - 50 ml IV UD PRN; Protocol PRN Reason: Hypoglycemia Protocol Stop: 10/24/21 00:49 Furosemide (Furosemide 40 Mg Tab) 40 mg PO QAM SIM Stop: 10/30/21 09:29 Last Admin: 10/01/21 09:13 Dose: 40 mg Documented by: Glucagon (Glucagon For Inj 1 Mg Vial) 1 mg SQ UD PRN; Protocol PRN Reason: Hypoglycemia Protocol Stop: 10/24/21 00:49 Glucose (Glucose 10 Tabs/Tube) 4 - 8 tabs PO UD PRN; Protocol PRN Reason: Hypoglycemia Protocol Stop: 10/24/21 00:49 Glucose (Glucose 40% Gel 15 Gm Tube) 15 - 30 gm PO UD PRN; Protocol PRN Reason: Hypoglycemia Protocol Stop: 10/24/21 00:49 Hydromorphone HCl (Hydromorphone Inj 0.5 Mg/0.5 Ml Syr) 0.25 mg IV Q4 PRN PRN Reason: Pain Stop: 10/12/21 18:10 Famotidine 20 mg/ Syringe 5 mls @ 2.5 mls/min IV Q12 SIM Stop: 10/27/21 20:59 Last Admin: 10/01/21 09:14 Dose: 2.5 mls/min Documented by: Insulin Aspart (Insulin Aspart Per Unit) 0 units SC ACHS SIM Stop: 10/24/21 17:29 Last Admin: 10/01/21 12:47 Dose: Not Given Documented by: Lorazepam (Lorazepam 2 Mg/1 Ml Vial) 0.25 mg IV Q4H PRN PRN Reason: anxiety Stop: 10/28/21 18:10 Miscellaneous (Carbohydrates For Hypoglycemia ) 15 - 30 gm PO UD PRN PRN Reason: Hypoglycemia Protocol Stop: 10/24/21 00:49 Fluphenazine [ Prolixin] 5mg: Non- Formulary Patient's Own Med 1 ea PO BID [facility] Stop: 10/24/21 08:59 Last Admin: 10/01/21 09:06 Dose: 1 ea Documented by: Ondansetron HCl (Ondansetron Inj 2 Mg/Ml 2 Ml Vial) 4 mg IV Q6H PRN PRN Reason: Nausea Stop: 10/24/21 00:49 Polyethylene Glycol (Polyethylene (Miralax) 17 Gm Pack) 17 gm PO DAILY [facility] Stop: 10/30/21 09:29 Last Admin: 10/01/21 09:05 Dose: Not Given Documented by: Trihexyphenidyl HCl (Trihexyphenidyl Hcl 5 Mg Tab) 3.75 mg PO BID [facility] Stop: 10/29/21 08:59 Last Admin: 10/01/21 09:05 Dose: 3.75 mg Documented by: (1) Abdominal pain Abdominal location: generalized Qualified Code(s): R10.84 - Generalized abdominal pain (2) Ascites Ascites type: malignant Qualified Code(s): R18.0 - Malignant ascites
--- NOTE | 2021-10-01 15:40 | Ultrasound Report ---
US paracentesis abd w/image CLINICAL HISTORY: 61 years-old Female with Palliative Paracentesis for symptom relieve. Recurrent as cites COMPARISON: Ultrasound-guided paracentesis 09/27/2021 PROCEDURE: The procedure was explained to the patient in the care including the benefits and possible risks/complications. The patient gave verbal understanding and written consent was obtained. A time -out was performed prior to the start of the procedure. The patient was placed on the ultrasound table in the supine position. Using ultrasound guidance, an appropriate procedure site in the left lower abdomen was marked. This area was then prepped and drape d in the usual sterile fashion. Local anesthesia was achieved within 1% lidocaine. An 8-Icelandic Lil Monkey Butt is catheter was then inserted. Approximately 4.5 liters of clear, yellowish fluid was removed for the rapeutic purposes only. The catheter was removed and external pressure was held to achieve hemostasis. A sterile dressing was applied to the procedure site. The patient tolerated the procedure well without immediate complicati ons. IMPRESSION: Successful ultrasound-guided paracentesis with removal of 4.5 L ascitic fluid ACT 112: Negative or not required by law. The above report was generated using voice recognition software. It may contain grammatical, syntax o r spelling errors. Electronically signed by: Jean Marie Cabezas M.D. 10/01/2021 3:39 PM
[2021-10-02] MEDS: TRIHEXYPHENIDYL HCL 5 MG TAB PO SCH ×2 (08:49→19:37)
[2021-10-02] MEDS: FLUPHENAZINE 5 MG PO SCH ×2 (08:49→19:37)
[2021-10-02] MEDS: POLYETHYLENE (MIRALAX) 17 GM PACK PO SCH (08:50)
[2021-10-02] MEDS: FAMOTIDINE 20 MG in SYRINGE 3 ML IV SCH ×2 (08:53→19:36)
[2021-10-02] MEDS: FUROSEMIDE 40 MG TAB PO SCH (08:53)
[2021-10-02] MEDS: INSULIN ASPART PER UNIT SC SCH (09:49)
--- NOTE | 2021-10-02 15:00 | Hospitalist Progress Note ---
Date of Service October 02, 2021 Assessment & Plan (1) Abnormal CT of the abdomen: (2) Abdominal pain: (3) Liver metastases: (4) Ascites: Plan: Continue lasix 40mg PO daily to help with management 09/25 Paracentesis 4.5L removed 09/27- 5.1 L removed 10/01 4.5L removed She will likely need weekly palliative paracentesis. After discharge, will need to be arranged through GI office (5) Malignancy: Plan: CT abd showing multiple large masses in liver consistent with metastatic disease, IMV is thrombosed, PV and SMV have small nonocclusive thrombus, moderate ascites, 4.5x3.3cm mass along course of left IMV. status post paracentesis 09/25 with 4.5L removed. Cytology negative for malignancy Flex sig 09/26 showed large near obstructing mass in sigmoid colon, biopsied. Biopsy came back adenocarcinoma. Palliative care met with family and patient on 09/27 and they have requested home hospice. 09/28, after discussion with patient she was transitioned to comfort measures while in the hospital awaiting placement (6) Hypokalemia: (7) Schizophrenia: Plan: Continue home med (8) Comfort measures only status: Plan: Disposition- Family will be unable to care for patient at home. CM will work on placing her into a facility for hospice. While here, patient will be comfort measures Admission and Anticipated Discharge Date Admission Date: September 23, 2021 Subjective s/p Palliative paracentesis yesterday with 4.5L fluid removed Physical Exam Physical Exam: Chronically ill, no acute distress, appears comfortable Respiratory: breathing comfortably on room air, no wheezing/rhonchi Cardiovascular: mildly tachycardic Gastrointestinal (Abdomen): Abdominal girth is improved Musculoskeletal: No edema Neurologic: awake, alert, spontaneously moving extremities Genitourinary: johnson draining dark yellow urine. Fecal management system draining dark liquid stool Results & Data Results & Data ([facility]) Medications Administered Current Inpatient Medications Furosemide (Furosemide 40 Mg Tab) 40 mg PO QAM SIM Stop: 10/30/21 09:29 Last Admin: 10/02/21 08:53 Dose: 40 mg Documented by: Hydromorphone HCl (Hydromorphone Inj 0.5 Mg/0.5 Ml Syr) 0.25 mg IV Q4 PRN PRN Reason: Pain Stop: 10/12/21 18:10 Famotidine 20 mg/ Syringe 5 mls @ 2.5 mls/min IV Q12 SIM Stop: 10/27/21 20:59 Last Admin: 10/02/21 08:53 Dose: 2.5 mls/min Documented by: Lorazepam (Lorazepam 2 Mg/1 Ml Vial) 0.25 mg IV Q4H PRN PRN Reason: anxiety Stop: 10/28/21 18:10 Fluphenazine [ Prolixin] 5mg: Non- Formulary Patient's Own Med 1 ea PO BID [facility] Stop: 10/24/21 08:59 Last Admin: 10/02/21 08:49 Dose: 1 ea Documented by: Ondansetron HCl (Ondansetron Inj 2 Mg/Ml 2 Ml Vial) 4 mg IV Q6H PRN PRN Reason: Nausea Stop: 10/24/21 00:49 Polyethylene Glycol (Polyethylene (Miralax) 17 Gm Pack) 17 gm PO DAILY [facility] Stop: 10/30/21 09:29 Last Admin: 10/02/21 08:50 Dose: Not Given Documented by: Trihexyphenidyl HCl (Trihexyphenidyl Hcl 5 Mg Tab) 3.75 mg PO BID [facility] Stop: 10/29/21 08:59 Last Admin: 10/02/21 08:49 Dose: 3.75 mg Documented by: (1) Abdominal pain Abdominal location: generalized Qualified Code(s): R10.84 - Generalized abdominal pain (2) Ascites Ascites type: malignant Qualified Code(s): R18.0 - Malignant ascites
[2021-10-03] MEDS: FLUPHENAZINE 5 MG PO SCH ×2 (08:41→19:37)
[2021-10-03] MEDS: TRIHEXYPHENIDYL HCL 5 MG TAB PO SCH ×2 (08:41→19:37)
[2021-10-03] MEDS: POLYETHYLENE (MIRALAX) 17 GM PACK PO SCH (08:41)
[2021-10-03] MEDS: FAMOTIDINE 20 MG in SYRINGE 3 ML IV SCH ×2 (08:41→19:37)
[2021-10-03] MEDS: FUROSEMIDE 40 MG TAB PO SCH (08:43)
--- NOTE | 2021-10-03 14:16 | Hospitalist Progress Note ---
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 Flex sig 09/26 showed large near obstructing mass in sigmoid colon, biopsied. Palliative care met with family and patient on 09/27 and they have requested home hospice. 09/28, after discussion with patient she was transitioned to comfort measures while in the hospital awaiting placement (2) Ascites: Plan: Continue lasix 40mg PO daily to help with management 09/25 Paracentesis 4.5L removed 09/27- 5.1 L removed 10/01 4.5L removed Acetic fluid cytology is negative for any malignancy She will likely need weekly palliative paracentesis. After discharge, will need to be arranged through GI office Abdomen is distended but not tense and not tender Awaiting placement-Will need paracentesis prior to discharge (3) Abnormal CT of the abdomen: (4) Abdominal pain: (5) Liver metastases: Plan: Secondary to adenocarcinoma of the colon (6) Hypokalemia: (7) Schizophrenia: Plan: Continue home med (8) Comfort measures only status: Plan: Disposition- Family will be unable to care for patient at home. CM will work on placing her into a facility for hospice. While here, patient will be comfort measures Discussed with the niece about prognosis Awaiting placement Admission and Anticipated Discharge Date Admission Date: September 23, 2021 Subjective 10/03/2021 Patient was seen and examined in medical floor She is Maldivian-speaking and discussed with the niece She does have abdominal discomfort without any nausea or vomiting Review of Systems Review of Systems: Other (Not in any acute distress but could not communicate it due to language barrier) Physical Exam Physical Exam: Lying in bed with minimal discomfort due to abdominal distention Constitutional: well developed, well nourished, + ill appearing and + obese Eyes: PERRL, conjunctivae normal, anicteric sclerae ENMT: external ear and nose normal, oropharynx normal Neck: trachea midline, no thyromegaly Respiratory: no respiratory distress Auscultation: lungs clear to auscultation bilaterally and + diminished lung sounds (At the bases) Cardiovascular: Rate/Rhythm: regular rate, regular rhythm and + tachycardic Heart Sounds: normal S1 and normal S2; no murmur Extremities: + edema (Trace edema bilaterally) Gastrointestinal (Abdomen): Inspection/Auscultation: + abdomen distended and normal bowel sounds (Diminished) Percussion/Palpation: + abdomen tender and abdomen soft Musculoskeletal: No acute arthritis in any joint Results & Data Results & Data ([facility]) Medications Administered Current Inpatient Medications Furosemide (Furosemide 40 Mg Tab) 40 mg PO QAM SIM Stop: 10/30/21 09:29 Last Admin: 10/03/21 08:43 Dose: 40 mg Documented by: Famotidine 20 mg/ Syringe 5 mls @ 2.5 mls/min IV Q12 SIM Stop: 10/27/21 20:59 Last Admin: 10/03/21 08:41 Dose: 2.5 mls/min Documented by: Lorazepam (Lorazepam 2 Mg/1 Ml Vial) 0.25 mg IV Q4H PRN PRN Reason: anxiety Stop: 10/28/21 18:10 Morphine Sulfate (Morphine Sulfate 5 Mg/0.25 Ml Udp) 5 mg PO Q4H PRN PRN Reason: Pain or dyspnea Stop: 10/17/21 11:52 Fluphenazine [ Prolixin] 5mg: Non- Formulary Patient's Own Med 1 ea PO BID SIM Stop: 10/24/21 08:59 Last Admin: 10/03/21 08:41 Dose: 1 ea Documented by: Ondansetron HCl (Ondansetron Inj 2 Mg/Ml 2 Ml Vial) 4 mg IV Q6H PRN PRN Reason: Nausea Stop: 10/24/21 00:49 Polyethylene Glycol (Polyethylene (Miralax) 17 Gm Pack) 17 gm PO DAILY SIM Stop: 10/30/21 09:29 Last Admin: 10/03/21 08:41 Dose: Not Given Documented by: Trihexyphenidyl HCl (Trihexyphenidyl Hcl 5 Mg Tab) 3.75 mg PO BID [facility] Stop: 10/29/21 08:59 Last Admin: 10/03/21 08:41 Dose: 3.75 mg Documented by: (1) Abdominal pain Abdominal location: generalized Qualified Code(s): R10.84 - Generalized abdominal pain (2) Ascites Ascites type: malignant Qualified Code(s): R18.0 - Malignant ascites
--- NOTE | 2021-10-03 17:09 | Anesthesiology Consultation ---
Date of Service October 03, 2021 Assessment & Plan (1) Encounter for pre-operative examination: Chart Review Chart Review: Acceptable Risk for Surgery and Patient NOT seen in Pre Admission Testing Consults Requested none History Surgery Operation Date: 09/26/21 17:45 Proposed Procedures p Flexible Sigmoidoscopy Dr Salazar - Rene Salazar MD Operation Date: 10/04/21 10:30 Proposed Procedures p Peritoneal Pleurx Placement - Clarke Cruz DO, FACS Height/Weight Height: 5 ft 8 in Weight: 104.5 kg Allergies Allergy/AdvReac Type Severity Reaction Status Date / Time No Known Drug Allergies Allergy Unknown Verified 09/23/21 17:56 Medications Home Medications Medication Instructions Recorded Confirmed Last Taken fluphenazine HCl 5 mg tablet 5 mg PO [facility] tab 12/10/18 09/23/21 Unknown trihexyphenidyl 5 mg tablet 3.75 mg PO BID tab 12/10/18 09/29/21 Unknown Active Medications Generic Name Dose Route Start Last Admin Trade Name Freq PRN Reason Stop Dose Admin Furosemide 40 mg 09/30/21 09:30 10/03/21 08:43 Furosemide 40 Mg Tab PO 10/30/21 09:29 40 mg QAM SIM Administration Famotidine 20 mg/ Syringe 5 mls @ 2.5 mls/min 09/27/21 21:00 10/03/21 08:41 IV 10/27/21 20:59 2.5 mls/min Q12 SIM Administration Fluphenazine [ 1 ea 09/24/21 09:00 10/03/21 08:41 Prolixin] 5mg: Non- PO 10/24/21 08:59 1 ea Formulary Patient's BID SIM Administration Own Med Polyethylene Glycol 17 gm 09/30/21 09:30 10/03/21 08:41 Polyethylene (Miralax) 17 Gm Pack PO 10/30/21 09:29 Not Given DAILY SIM Trihexyphenidyl HCl 3.75 mg 09/29/21 09:00 10/03/21 08:41 Trihexyphenidyl Hcl 5 Mg Tab PO 10/29/21 08:59 3.75 mg BID SIM Administration NPO Date Last Intake of Fluids: 09/25/21 Time Last Intake of Fluids: 18:00 Date Last Intake of Solids: 09/24/21 Past Medical History Medical History Ascites Impaired fasting glucose Morbid obesity Palliative care encounter Schizophrenia Tinnitus Social History Smoking Status: Never smoker Hx Alcohol Use: No Hx Substance Use: No Physical Exam Vital Signs Last Vital Signs Temp 98.1 F 09/28/21 21:51 Pulse 113 H 09/28/21 21:51 Resp 18 09/28/21 21:51 BP 151/87 H 09/28/21 21:51 Pulse Ox 96 09/28/21 21:51 Testing Laboratory Results 10/01/21 11:36 10/01/21 11:36 PT 11.8 Seconds (9.0-12.0) 10/01/21 11:36 INR 1.1 (0.9-1.1) 10/01/21 11:36 APTT 27.1 Seconds (21.0-31.0) 09/23/21 18:20 Hemoglobin A1c 6.2 % (4.5-5.6) H 09/24/21 06:28 Urine Color Gallia 09/23/21 18:20 Urine Appearance Cloudy (Clear) A 09/23/21 18:20 Urine pH 5.5 (4.5-7.5) 09/23/21 18:20 Ur Specific [place] 1.028 (1.000-1.030) 09/23/21 18:20 Urine Protein 1+ (Negative) H 09/23/21 18:20 Urine Glucose (UA) Negative (Negative) 09/23/21 18:20 Urine Ketones Trace (Negative) H 09/23/21 18:20 Urine Nitrite Positive (Negative) A 09/23/21 18:20 Ur Leukocyte Esterase 1+ (Negative) H 09/23/21 18:20 Urine WBC (Auto) 5-10 /hpf (0-5) H 09/23/21 18:20 Urine RBC (Auto) 5-10 /hpf (0-4) H 09/23/21 18:20 U Hyaline Cast (Auto) 5-10 /lpf (0-5) H 09/23/21 18:20 U Epithel Cells (Auto) >30 /lpf (0-5) H 09/23/21 18:20 Urine Bacteria (Auto) Negative (Negative) 09/23/21 18:20 09/24/21 Unknown Gram Stain - Final Peritoneal Fluid Aerobic and Anaerobic Culture - Final No growth 09/23/21 18:20 Urine Culture - Final Urine,Clean Catch No growth - less than 1,000 colonies/mL. Electrocardiogram Date: 09/23/21 Findings: + NSR @ (tachy) Chest X-Ray Date: 09/23/21 Findings: + NAD
--- NOTE | 2021-10-03 20:18 | Surgery Consultation ---
Date of Consultation October 03, 2021 Assessment & Plan (1) Ascites: Due to the patient's underlying malignancy and need for recurrent paracentesis plans are tenably placed to place an abdominal Pleurx by Dr. Cruz tomorrow. We will ensure that the patient is n.p.o. after midnight proceed accordingly. Additional recommendations will be made based on her clinical course after her procedure is complete. History of Present Illness Reason for Consultation: Colon cancer resulting in abdominal ascites requiring repeat paracentesis; consideration of placing abdominal Pleurx Attending Physician: Rosemary Ji MD History of Present Illness This is a 61-year-old female who I visited with at bedside. Patient has an underlying history of colon cancer. She speaks broken Belarusian but her sister was at the bedside who helped translate. Her sister notes that as her illness has gotten worse her sister has become much less conversant. This patient has been admitted to [facility] since 09/23/2021. Patient was initially admitted due to inability to control her bowels and bladder. She is also noted some worsening abdominal distention over the past month along with bloody diarrhea and nausea for approximately 4 months. Was recommended the patient undergo colonoscopy but apparently this procedure was never performed. With the patient's above-noted complaints she has developed ascites. She had a CT scan at the time of admission that showed suggestion of an ovarian versus a colon mass with multiple venous thromboses and a large volume of ascites. Patient did undergo a flexible sigmoidoscopy on 09/26/2021 that showed a partial obstructing tumor in the sigmoid colon. This tumor was b iopsied and pathology showed a moderately differentiated adenocarcinoma which favored a colorectal primary. It is felt that the patient's ascites is related to this condition. Since admission the patient has had multiple paracentesis including a paracentesis on 09/25/2021 at which time 4.5 L was removed, 09/27/2021 at which time 5.1 L were removed, and 10/01/2021 at which time 4.5 L were removed. Cytology was sent of her initial paracentesis which was negative for malignancy. Since patient's admission she has been transitioned to comfort measures but is felt that she require repeat paracentesis for comfort purposes and therefore general surgery is being consulted for consideration of placing an abdominal Pleurx. At the time of my interview the patient was resting in bed. She did not appear to be in any distress. Allergies Allergy/AdvReac Type Severity Reaction Status Date / Time No Known Drug Allergies Allergy Unknown Verified 09/23/21 17:56 Home Medications Medication Instructions Recorded Confirmed Type fluphenazine HCl 5 mg tablet 5 mg PO AMHS tab 12/10/18 09/23/21 History trihexyphenidyl 5 mg tablet 3.75 mg PO BID tab 12/10/18 09/29/21 History Patient History Medical History Ascites Impaired fasting glucose Morbid obesity Palliative care encounter Schizophrenia Tinnitus Social History Smoking Status: Never smoker Hx Alcohol Use: No Hx Substance Use: No Preferred Language: Tajik Communication Ability: Effective Communication Tools: Other Brass Burnisher Required: Yes Beliefs That Will Affect Care: None Current Living Situation: Family Feels Safe at Home: Yes Assistive Devices: None Review of Systems Review of Systems: Review of systems was limited due to language barrier but was somewhat obtained from review of records and conversation with patient's sister Constitutional: as per Subjective / HPI Gastrointestinal: as per Subjective / HPI Genitourinary: + urinary incontinence Physical Exam Constitutional: well developed and well nourished; no acute distress Eyes: no conjunctival abnormality ENMT: Ears: no hearing impairment and no external ear abnormality Neck: trachea midline Respiratory: normal respiratory effort; no respiratory distress and no labored breathing Breath sounds were decreased at bases bilaterally. No accessory muscle use was noted to aid in her breathing Cardiovascular: Rate/Rhythm: regular rate and regular rhythm Gastrointestinal (Abdomen): Abdomen is rotund and distended. There is an apparent large amount of ascites in her belly on physical exam. There is minimal tenderness to palpation Musculoskeletal: No calf tenderness Neurologic: moves all extremities PG Care Time/CCT Total # of Minutes Spent Total Time Spent with Patient: Total time spent is greater than 50% in coordination of care (as documented) at patient's floor/unit and/or counseling patient: Coding Level of Care Code 73352 Inpt Consult Level 4 Diagnoses Ascites R18.8
[2021-10-04] MEDS: FAMOTIDINE 20 MG in SYRINGE 3 ML IV SCH ×2 (09:55→19:30)
[2021-10-04] MEDS: FUROSEMIDE 40 MG TAB PO SCH (10:56)
[2021-10-04] MEDS: TRIHEXYPHENIDYL HCL 5 MG TAB PO SCH ×2 (10:57→19:30)
[2021-10-04] MEDS: FLUPHENAZINE 5 MG PO SCH ×2 (10:57→19:30)
[2021-10-04] MEDS: POLYETHYLENE (MIRALAX) 17 GM PACK PO SCH (10:57)
[2021-10-04] MEDS ORDERED: DEXAMETHASONE SOD INJ 4 MG/ML VIAL ONE (11:23)
[2021-10-04] MEDS ORDERED: fentaNYL citrate 100 MCG/2 ML VIAL ONE ×2 (11:23→13:25)
[2021-10-04] MEDS ORDERED: LIDOCAINE 2% 2 ML VIAL/AMP(20MG/ML) INFIL ONE (11:23)
[2021-10-04] MEDS ORDERED: ONDANSETRON INJ 2 MG/ML 2 ML VIAL ONE (11:23)
[2021-10-04] MEDS ORDERED: PROPOFOL IV EMULSION 10 MG/ML 20 ML VIAL IV ONE (11:23)
[2021-10-04] MEDS ORDERED: MIDAZOLAM HCL 1 MG/ML 2ML VIAL ONE (11:23)
[2021-10-04] MEDS ORDERED: BUPIVACAINE 0.5 % 5 MG/1 ML MPF 30ML VIAL ONE ×2 (11:55→12:23)
[2021-10-04] MEDS ORDERED: LIDOCAINE 1% LOCAL 20 ML VIAL ONE (11:55)
[2021-10-04] MEDS ORDERED: EPINEPHrine INJ 1 MG/ML AMP ONE (11:55)
[2021-10-04] MEDS ORDERED: ONDANSETRON INJ 2 MG/ML 2 ML VIAL IV PRN (11:59)
[2021-10-04] MEDS ORDERED: ATROPINE SULFATE 0.1 MG/ML 10ML SYR IV PRN (11:59)
[2021-10-04] MEDS ORDERED: fentaNYL citrate 100 MCG/2 ML VIAL IV PRN (11:59)
[2021-10-04] MEDS ORDERED: ePHEDrine sulfate 50 MG/ML AMP IV PRN (11:59)
--- NOTE | 2021-10-04 12:29 | Surgery Progress Note ---
Date of Service October 04, 2021 Assessment & Plan (1) Ascites: Plan: 61-year-old female with metastatic colorectal cancer to the liver and refractory ascites. She is going home on hospice and they have asked for Pleurx catheter replaced. Plan for abdominal Pleurx catheter placement Risks of the procedure were discussed to include but not limited to bleeding, infection, demonstrating structures, port malfunction or infection requiring removal, need for future more extensive surgery, and the risk of anesthesia The patient is Yemeni-speaking, and her niece Lidya was used as an interpreter and translator at the bedside. We offered the patient interpretation service, but she preferred to have her niece interpret. (2) Colonic mass: Admission and Anticipated Discharge Date Admission Date: September 23, 2021 Subjective 61-year-old female with newly diagnosed colorectal cancer metastatic to her liver with refractory ascites. She has been n.p.o. Physical Exam Constitutional: WD/WN, vitals as above Respiratory: normal respiratory effort, lungs clear to auscultation Cardiovascular: RRR, no murmur, no edema Gastrointestinal (Abdomen): normal bowel sounds, soft, nontender, no he patosplenomegaly Inspection/Auscultation: + abdomen distended (Significant distention with fluid wave) and + abdominal surgical scar (Right lower quadrant scar from appendicitis) Results & Data ([facility]) Vital Signs (Past 12 Hours) Vital Signs Temp Pulse Resp BP Pulse Ox 10/04/21 12:17 37.2 C 116 H 20 112/79 95 Diagnostic Findings ABDOMEN AND PELVIS CT WITH IV CONTRAST CT DOSE: 1570.48 mGy.cm HISTORY: Generalized abdominal pain, distention TECHNIQUE: Multiaxial CT images of the abdomen and pelvis were performed following the use of intravenous contrast. A dose lowering technique was utilized adhering to the principles of ALARA. COMPARISON STUDY: None. FINDINGS: Trace left pleural effusion. A few bibasilar linear densities consistent with subsegmental atelectasis. No pneumoperitoneum. No pneumatosis. No suspicious lytic or blastic osseous lesions. Mild body wall edema. Tiny fat- containing umbilical hernia. Mildly enlarged right anterior diaphragmatic lymph node on image 54 measuring 1 cm. Multiple large heterogeneous mass is seen throughout the liver. Some of these lesions are coalescing. Dominant lesion within the central aspect of the liver measures 7.4 cm. These are consistent with metastatic disease. Partial thrombus within the main portal vein. The inferior mesenteric vein is thrombosed. Small focus of thrombus within the superior mesenteric vein is also noted. Multiple mildly enlarged lymph nodes ad jacent to the thrombosed inferior mesenteric vein. There is also a dominant cystic lesion with curvilinear calcifications and adjacent to the inferior mesenteric vein and abutting the sigmoid colon. This is best seen on image 382 and measures 4.5 x 3.3 cm. Mild thickening along the surface of the mid to distal sigmoid colon favors serosal implants in the setting of metastatic disease. Moderate ascites is noted. Mild thickening within the peritoneal lining posterior to the spleen and along the left paracolic gutter which could represent developing peritoneal carcinomatosis. The bladder is decompressed by Gillespie catheter. The uterus is unremarkable. No bowel wall thickening or obstruction. An 8 cm right adrenal myelolipoma. No hydronephrosis. IMPRESSION: 1. Multiple large masses seen throughout the liver consistent with metastatic disease. 2. The inferior mesenteric vein is completely thrombosed. The main portal vein and superior mesenteric vein also demonstrate a small amount of nonocclusive thrombus. 3. Moderate ascites. Mild thickening of the peritoneal lining on the left. This could represent developing peritoneal carcinomatosis. 4. Multiple enlarged lymph nodes and a 4.5 x 3.3 cm cystic mass along the course of the thrombosed left inferior mesenteric vein. There is also soft tissue thickening along the surface of the mid to distal sigmoid colon consistent with serosal implants in the setting of metastatic disease. This could be due to a primary colonic or ovarian malignancy. 5. Additional findings as described above. PG Care Time/CCT Total # of Minutes Spent Total Time Spent with Patient: Total time spent is greater than 50% in coordination of care (as documented) at patient's floor/unit and/or counseling patient: Coding Level of Care Code 54519 Inpt Consult Level 2 Diagnoses Ascites R18.8 Colonic mass K63.89
[2021-10-04] MEDS ORDERED: ceFAZolin 2000MG 2,000 MG/15 ML SYR IV SCH (12:30)
[2021-10-04] MEDS ORDERED: ALBUMIN HUMAN 5% 12.5 GM/250 ML VIAL IV ONE (13:41)
--- NOTE | 2021-10-04 14:10 | Operative Report ---
PG Post Operative Report Pre & Post Diagnosis Operation Date: 10/04/21 10:30 Pre-Op Diagnosis: Colon cancer metastatic to the liver with ascites Post-Op Diagnosis: Colon cancer metastatic to the liver with ascites I identified the patient and participated in the time-out.: Yes Procedure Operation Date: 10/04/21 10:30 Actual Procedures p Peritoneal Pleurx Placement(Not Applicable) - Clarke Cruz DO, FACS Surgeon Clarke Cruz DO, KEYUR Rn Liaison Jazmyn Sanabria Estimated Blood Loss 2 Findings Consistent with Post-Op Diagnosis Abdominal Pleurx catheter placed with ultrasound and fluoroscopic guidance. 3.5 L of ascites drained. Specimens None Drains Abdominal Pleurx catheter Anesthesia Type General Complications none Disposition Accompanied Patient To Recovery: No Disposition: Recovery Room Indications 61-year-old female with newly diagnosed colon adenocarcinoma with metastatic disease to the liver and refractory ascites. Plan for abdominal Pleurx catheter placement. The risks of the procedure were discussed, all questions were answered, and the patient agreed to proceed with surgery as planned. Description of Procedure The patient was properly identified, consented, and taken to the operating room where she was placed in the supine position. Preoperative antibiotics were given. Her abdomen is prepped and draped in the standard sterile fashion. Surgical timeout was performed and all parties were in agreement that the correct patient and procedure be performed we continued as planned. An incision was made to the right of the umbilicus after the injection of local anesthetic. Ultrasound guidance was utilized to access the peritoneal cavity with a needle. We had good return of peritoneal ascites confirming access into the peritoneum. A wire was then fed through the needle and fluoroscopy was utilized to directed into the pelvis. A separate incision was made superior and medial to this about 7 cm from the access site. A tonsil was brought through the subcutaneous tissue and the end of the catheter was grasped and brought through the incision. The dilating trocar and peel-away sheath were then fed over the wire into the abdominal cavity. The catheter was then fed through the peel-away sheath and the peel-away sheath was removed. We took care to ensure that the fenestrated portion of the catheter was completely inside of the peritoneum. Cuff was palpated midway between the 2 incisions. We then hooked the Pleurx catheter up to the Pleurx vacuum bottles. Approximately 3.5 L of ascites was removed. The patient did receive some albumin per anesthesia to prevent hypotension. The access incision was closed with a 4-0 Monocryl subcuticular suture and Dermabond was placed over this incision. 2-0 nylon drain stitches were placed. Sterile dressing was applied. The patient was extubated in the operating room and taken to the PACU where she recovered without apparent incident. All sponge, needle, and instrument counts were correct at conclusion of procedure. The patient tolerated the procedure without incident. The physician's program support assistant was present scrubbed for the entire the case. She was critical in positioning the patient, prepping and draping, retraction and exposure, placement of the catheter, closure the incisions, placement of dressings. I attest to the content of the Intraoperative Record and any orders documented therein. Any exceptions are noted below.
--- NOTE | 2021-10-04 14:17 | Fluoroscopy Report ---
FL KUB CLINICAL HISTORY: PERITONEAL PLEURX CATHETER PLACEMENT COMPARISON STUDY: None FLUOROSCOPY TIME: 2 seconds. FLUOROSCOPIC IMAGES: 1 FINDINGS: A single fluoroscopic image was obtained with a catheter is seen superimposed over the abdo men. IMPRESSION: Reported peritoneal Pleurx catheter placement. ACT 112: Negative or not required by law. Electronically signed by: Beni Owen M.D. 10/04/2021 2:15 PM
--- NOTE | 2021-10-04 16:10 | Hospitalist Progress Note ---
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 Flex sig 09/26 showed large near obstructing mass in sigmoid colon, biopsied. Palliative care met with family and patient on 09/27 and they have requested home hospice. 09/28, after discussion with patient she was transitioned to comfort measures while in the hospital awaiting placement Has rectal tube in situ (2) Ascites: Plan: Continue lasix 40mg PO daily to help with management 09/25 Paracentesis 4.5L removed 09/27- 5.1 L removed 10/01 4.5L removed Acetic fluid cytology is negative for any malignancy She will likely need weekly palliative paracentesis. After discharge, will need to be arranged through GI office Abdomen is distended but not tense and not tender Status post placement of Pleurx catheter in peritoneal cavity for continuous drainage of acetic fluid (3) Abnormal CT of the abdomen: (4) Abdominal pain: Plan: Has abdominal discomfort without any significant pain She has not been using much of narcotics pain medication (5) Liver metastases: Plan: Secondary to adenocarcinoma of the colon (6) Hypokalemia: (7) Schizophrenia: Plan: Continue home med (8) Comfort measures only status: Plan: Disposition- Family will be unable to care for patient at home. CM will work on placing her into a facility for hospice. While here, patient will be comfort measures Discussed with the niece about prognosis Awaiting placement The family members will not be able to take care of her at home and the placement is going to be difficult Admission and Anticipated Discharge Date Admission Date: September 23, 2021 Subjective 10/03/2021 Patient was seen and examined in medical floor She is Gibraltarian-speaking and discussed with the niece She does have abdominal discomfort without any nausea or vomiting 10/04/2021 The patient was seen and examined in medical floor She has abdominal discomfort but denies any significant pain She refused to have COVID-19 vaccination Discussed with the niece who mentioned that she cannot be taken care at home Review of Systems Review of Systems: Other Physical Exam Physical Exam: Lying in bed with minimal discomfort due to abdominal distention Constitutional: well developed, well nourished, + ill appearing and + obese Eyes: PERRL, conjunctivae normal, anicteric sclerae ENMT: external ear and nose normal, oropharynx normal Neck: trachea midline, no thyromegaly Respiratory: no respiratory distress Auscultation: lungs clear to auscultation bilaterally and + diminished lung sounds (At the bases) Cardiovascular: Rate/Rhythm: regular rate, regular rhythm and + tachycardic Heart Sounds: normal S1 and normal S2; no murmur Extremities: + edema (Trace edema bilaterally) Gastrointestinal (Abdomen): Inspection/Auscultation: + abdomen distended and normal bowel sounds (Diminished) Percussion/Palpation: + abdomen tender and abdomen soft Musculoskeletal: No acute arthritis in any joint Results & Data Results & Data ([facility]) Vital Signs (Past 12 Hours) Vital Signs Temp Pulse Pulse Resp BP BP Pulse Ox 10/04/21 15:48 36.7 C 105 H 18 124/73 90 10/04/21 15:00 36.8 C 104 H 18 108/79 92 10/04/21 14:45 106 H 20 115/66 94 10/04/21 14:35 36.4 C L 104 H 20 119/79 96 10/04/21 14:25 104 H 20 123/79 98 10/04/21 14:15 104 H 20 121/74 99 10/04/21 14:09 36.4 C L 103 H 17 118/42 L 93 10/04/21 12:17 37.2 C 116 H 20 112/79 95 Medications Administered Current Inpatient Medications Furosemide (Furosemide 40 Mg Tab) 40 mg PO QAM [facility] Stop: 10/30/21 09:29 Last Admin: 10/04/21 10:56 Dose: Not Given Documented by: Famotidine 20 mg/ Syringe 5 mls @ 2.5 mls/min IV Q12 [facility] Stop: 10/27/21 20:59 Last Admin: 10/04/21 09:55 Dose: 2.5 mls/min Documented by: Cefazolin Sodium (Ancef 2000mg) 2,000 mg in 15 mls @ 3.75 mls/min IV TODAY@1230 [facility] Stop: 10/04/21 18:00 Last Admin: 10/04/21 12:49 Dose: 3.75 mls/min Documented by: Lorazepam (Lorazepam 2 Mg/1 Ml Vial) 0.25 mg IV Q4H PRN PRN Reason: anxiety Stop: 10/28/21 18:10 Morphine Sulfate (Morphine Sulfate 5 Mg/0.25 Ml Udp) 5 mg PO Q4H PRN PRN Reason: Pain or dyspnea Stop: 10/17/21 11:52 Fluphenazine [ Prolixin] 5mg: Non- Formulary Patient's Own Med 1 ea PO BID [facility] Stop: 10/24/21 08:59 Last Admin: 10/04/21 10:57 Dose: Not Given Documented by: Ondansetron HCl (Ondansetron Inj 2 Mg/Ml 2 Ml Vial) 4 mg IV Q6H PRN PRN Reason: Nausea Stop: 10/24/21 00:49 Polyethylene Glycol (Polyethylene (Miralax) 17 Gm Pack) 17 gm PO DAILY [facility] Stop: 10/30/21 09:29 Last Admin: 10/04/21 10:57 Dose: Not Given Documented by: Trihexyphenidyl HCl (Trihexyphenidyl Hcl 5 Mg Tab) 3.75 mg PO BID [facility] Stop: 10/29/21 08:59 Last Admin: 10/04/21 10:57 Dose: Not Given Documented by: (1) Ascites Ascites type: malignant Qualified Code(s): R18.0 - Malignant ascites (2) Abdominal pain Abdominal location: generalized Qualified Code(s): R10.84 - Generalized abdominal pain
--- NOTE | 2021-10-04 16:31 | XRay Report ---
KUB HISTORY: s/p abdominal pleurx catheter placement COMPARISON: Abdomen and pelvis CT 09/23/2021. FINDINGS: Right-sided peritoneal catheter is noted which terminates within the left lower quadrant. M ildly dilated gas-filled loops of large or small bowel seen throughout the abdomen. This favors an il eus given the recent postoperative change. A partial small bowel obstruction could also have a simila r appearance in the appropriate clinical setting. Centralized bowel to suggest a small amount of asci ashtyn. No renal calculi. No ureteral calculi. No pneumoperitoneum or pneumatosis. IMPRESSION: 1. Interval placement of a right-sided peritoneal catheter which terminates within the left lower emery drant. 2. Suspect a small amount of ascites. 3. Mildly dilated gas-filled loops of large or small bowel seen throughout the abdomen. This favors a n ileus given the recent postoperative change. A partial small bowel obstruction could also have a si milar appearance in the appropriate clinical setting. ACT 112: Negative or not required by law. Electronically signed by: Sang Del Rosario M.D. 10/04/2021 4:30 PM
--- NOTE | 2021-10-04 17:01 | Anesthesiology Progress Note ---
Date of Service October 04, 2021 Anesthesia Post Procedure Vital Signs Vital Signs: Temp Pulse Pulse Resp BP BP Pulse Ox 10/04/21 16:28 36.8 C 18 L 103 H 91 H 126/82 10/04/21 15:48 36.7 C 105 H 18 124/73 90 10/04/21 15:00 36.8 C 104 H 18 108/79 92 10/04/21 14:45 106 H 20 115/66 94 10/04/21 14:35 36.4 C L 104 H 20 119/79 96 10/04/21 14:25 104 H 20 123/79 98 10/04/21 14:15 104 H 20 121/74 99 10/04/21 14:09 36.4 C L 103 H 17 118/42 L 93 10/04/21 12:17 37.2 C 116 H 20 112/79 95 Pain Intensity Bilateral Abdomen: Pain Intensity: 3 Transfer of Care Handoff Completed per policy Notes Mental Status: alert / awake / arousable Patient Amnestic to Procedure: Yes Nausea / Vomiting: adequately controlled Pain: adequately controlled Airway Patency, RR, SpO2: stable & adequate BP & HR: stable & adequate Hydration State: stable & adequate Anesthetic Complications: no major complications apparent
[2021-10-05] MEDS: FLUPHENAZINE 5 MG PO SCH ×2 (09:05→19:45)
[2021-10-05] MEDS: TRIHEXYPHENIDYL HCL 5 MG TAB PO SCH ×2 (09:06→19:44)
[2021-10-05] MEDS: POLYETHYLENE (MIRALAX) 17 GM PACK PO SCH (09:08)
[2021-10-05] MEDS: FUROSEMIDE 40 MG TAB PO SCH (09:14)
[2021-10-05] MEDS: FAMOTIDINE 20 MG in SYRINGE 3 ML IV SCH ×2 (09:23→19:50)
--- NOTE | 2021-10-05 16:45 | Hospitalist Progress Note ---
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 Flex sig 09/26 showed large near obstructing mass in sigmoid colon, biopsied. Palliative care met with family and patient on 09/27 and they have requested home hospice. 09/28, after discussion with patient she was transitioned to comfort measures while in the hospital awaiting placement Has rectal tube in situ Remains medically stable and awaiting placement (2) Ascites: Plan: Continue lasix 40mg PO daily to help with management 09/25 Paracentesis 4.5L removed 09/27- 5.1 L removed 10/01 4.5L removed Acetic fluid cytology is negative for any malignancy She will likely need weekly palliative paracentesis. After discharge, will need to be arranged through GI office Abdomen is distended but not tense and not tender Status post placement of Pleurx catheter in peritoneal cavity for continuous drainage of acetic fluid Has been feeling much better with decreasing abdominal discomfort following insertion of Pleurx catheter (3) Abnormal CT of the abdomen: (4) Abdominal pain: Plan: Has abdominal discomfort without any significant pain She has not been using much of narcotics pain medication (5) Liver metastases: Plan: Secondary to adenocarcinoma of the colon (6) Hypokalemia: (7) Schizophrenia: Plan: Continue home med (8) Comfort measures only status: Plan: Disposition- Family will be unable to care for patient at home. CM will work on placing her into a facility for hospice. While here, patient will be comfort measures Discussed with the niece about prognosis Awaiting placement The family members will not be able to take care of her at home and the placement is going to be difficult Discussed with the daughter-awaiting placement Admission and Anticipated Discharge Date Admission Date: September 23, 2021 Subjective 10/03/2021 Patient was seen and examined in medical floor She is Bulgarian-speaking and discussed with the niece She does have abdominal discomfort without any nausea or vomiting 10/04/2021 The patient was seen and examined in medical floor She has abdominal discomfort but denies any significant pain She refused to have COVID-19 vaccination Discussed with the niece who mentioned that she cannot be taken care at home 10/05/2021 The patient was seen and examined in medical floor in presence of the daughter She has been stable and complains to have minimal abdominal discomfort No significant pain Physical Exam Physical Exam: Lying in bed with minimal discomfort due to abdominal distention Constitutional: well developed, well nourished, + ill appearing and + obese Eyes: PERRL, conjunctivae normal, anicteric sclerae ENMT: external ear and nose normal, oropharynx normal Neck: trachea midline, no thyromegaly Respiratory: no respiratory distress Auscultation: lungs clear to auscultation bilaterally and + diminished lung sounds (At the bases) Cardiovascular: Rate/Rhythm: regular rate, regular rhythm and + tachycardic Heart Sounds: normal S1 and normal S2; no murmur Extremities: + edema (Trace edema bilaterally) Gastrointestinal (Abdomen): Inspection/Auscultation: + abdomen distended (Distention has decreased since insertion of the Pleurx catheter) and normal bowel sounds (Diminished) Percussion/Palpation: + abdomen tender and abdomen soft Musculoskeletal: No acute arthritis in any joint Neurologic: Alert and awake and oriented as per the daughter. Results & Data Results & Data ([facility]) Medications Administered Current Inpatient Medications Furosemide (Furosemide 40 Mg Tab) 40 mg PO QAM [facility] Stop: 10/30/21 09:29 Last Admin: 10/05/21 09:14 Dose: 40 mg Documented by: Famotidine 20 mg/ Syringe 5 mls @ 2.5 mls/min IV Q12 [facility] Stop: 10/27/21 20:59 Last Admin: 10/05/21 09:23 Dose: 2.5 mls/min Documented by: Lorazepam (Lorazepam 2 Mg/1 Ml Vial) 0.25 mg IV Q4H PRN PRN Reason: anxiety Stop: 10/28/21 18:10 Morphine Sulfate (Morphine Sulfate 5 Mg/0.25 Ml Udp) 5 mg PO Q4H PRN PRN Reason: Pain or dyspnea Stop: 10/17/21 11:52 Fluphenazine [ Prolixin] 5mg: Non- Formulary Patient's Own Med 1 ea PO BID [facility] Stop: 10/24/21 08:59 Last Admin: 10/05/21 09:05 Dose: 1 ea Documented by: Ondansetron HCl (Ondansetron Inj 2 Mg/Ml 2 Ml Vial) 4 mg IV Q6H PRN PRN Reason: Nausea Stop: 10/24/21 00:49 Polyethylene Glycol (Polyethylene (Miralax) 17 Gm Pack) 17 gm PO DAILY [facility] Stop: 10/30/21 09:29 Last Admin: 10/05/21 09:08 Dose: 17 gm Documented by: Trihexyphenidyl HCl (Trihexyphenidyl Hcl 5 Mg Tab) 3.75 mg PO BID [facility] Stop: 10/29/21 08:59 Last Admin: 10/05/21 09:06 Dose: 3.75 mg Documented by: (1) Ascites Ascites type: malignant Qualified Code(s): R18.0 - Malignant ascites (2) Abdominal pain Abdominal location: generalized Qualified Code(s): R10.84 - Generalized abdominal pain
[2021-10-06] MEDS: FAMOTIDINE 20 MG in SYRINGE 3 ML IV SCH ×2 (09:25→20:40)
[2021-10-06] MEDS: FLUPHENAZINE 5 MG PO SCH ×2 (09:26→20:31)
[2021-10-06] MEDS: POLYETHYLENE (MIRALAX) 17 GM PACK PO SCH (09:26)
[2021-10-06] MEDS: FUROSEMIDE 40 MG TAB PO SCH (09:26)
[2021-10-06] MEDS: TRIHEXYPHENIDYL HCL 5 MG TAB PO SCH ×2 (09:26→20:30)
--- NOTE | 2021-10-06 14:22 | Hospitalist Progress Note ---
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 Flex sig 09/26 showed large near obstructing mass in sigmoid colon, biopsied. Palliative care met with family and patient on 09/27 and they have requested home hospice. 09/28, after discussion with patient she was transitioned to comfort measures while in the hospital awaiting placement Has rectal tube in situ Remains medically stable and awaiting placement Awaiting placement-in a facility with hospice (2) Ascites: Plan: Continue lasix 40mg PO daily to help with management 09/25 Paracentesis 4.5L removed 09/27- 5.1 L removed 10/01 4.5L removed Acetic fluid cytology is negative for any malignancy She will likely need weekly palliative paracentesis. After discharge, will need to be arranged through GI office Abdomen is distended but not tense and not tender Status post placement of Pleurx catheter in peritoneal cavity for continuous drainage of acetic fluid Has been feeling much better with decreasing abdominal discomfort following insertion of Pleurx catheter Advised to have drainage of peritoneal fluid every other day (3) Abnormal CT of the abdomen: (4) Abdominal pain: Plan: Has abdominal discomfort without any significant pain She has not been using much of narcotics pain medication (5) Liver metastases: Plan: Secondary to adenocarcinoma of the colon (6) Hypokalemia: (7) Schizophrenia: Plan: Continue home med (8) Comfort measures only status: Plan: Disposition- Family will be unable to care for patient at home. CM will work on placing her into a facility for hospice. While here, patient will be comfort measures Discussed with the niece about prognosis Awaiting placement The family members will not be able to take care of her at home and the placement is going to be difficult Discussed with the daughter-awaiting placement Admission and Anticipated Discharge Date Admission Date: September 23, 2021 Subjective 10/03/2021 Patient was seen and examined in medical floor She is Ethiopian-speaking and discussed with the niece She does have abdominal discomfort without any nausea or vomiting 10/04/2021 The patient was seen and examined in medical floor She has abdominal discomfort but denies any significant pain She refused to have COVID-19 vaccination Discussed with the niece who mentioned that she cannot be taken care at home 10/05/2021 The patient was seen and examined in medical floor in presence of the daughter She has been stable and complains to have minimal abdominal discomfort No significant pain 10/06/2021 The patient was seen and examined in medical floor in presence of the daughter She remains stable and complains to have minimal distention of the abdomen with discomfort Denies any significant pain Review of Systems Review of Systems: Other (Review of system was done through the daughter) Physical Exam Physical Exam: Lying in bed with minimal discomfort due to abdominal distention Constitutional: well developed, well nourished, + ill appearing and + obese Eyes: PERRL, conjunctivae normal, anicteric sclerae ENMT: external ear and nose normal, oropharynx normal Neck: trachea midline, no thyromegaly Respiratory: no respiratory distress Auscultation: lungs clear to auscultation bilaterally and + diminished lung sounds (At the bases) Cardiovascular: Rate/Rhythm: regular rate, regular rhythm and + tachycardic Heart Sounds: normal S1 and normal S2; no murmur Extremities: + edema (Trace edema bilaterally) Gastrointestinal (Abdomen): Inspection/Auscultation: + abdomen distended (Distention has decreased since insertion of the Pleurx catheter) and normal bowel sounds (Diminished) Percussion/Palpation: + abdomen tender and abdomen soft Musculoskeletal: No acute arthritis in any joint Neurologic: Alert, awake and oriented. Communication is done through daughter. She being Ethiopian-speaking Results & Data Results & Data ([facility]) Medications Administered Current Inpatient Medications Furosemide (Furosemide 40 Mg Tab) 40 mg PO QAM [facility] Stop: 10/30/21 09:29 Last Admin: 10/06/21 09:26 Dose: 40 mg Documented by: Famotidine 20 mg/ Syringe 5 mls @ 2.5 mls/min IV Q12 [facility] Stop: 10/27/21 20:59 Last Admin: 10/06/21 09:25 Dose: 2.5 mls/min Documented by: Lorazepam (Lorazepam 2 Mg/1 Ml Vial) 0.25 mg IV Q4H PRN PRN Reason: anxiety Stop: 10/28/21 18:10 Morphine Sulfate (Morphine Sulfate 5 Mg/0.25 Ml Udp) 5 mg PO Q4H PRN PRN Reason: Pain or dyspnea Stop: 10/17/21 11:52 Fluphenazine [ Prolixin] 5mg: Non- Formulary Patient's Own Med 1 ea PO BID [facility] Stop: 10/24/21 08:59 Last Admin: 10/06/21 09:26 Dose: 1 ea Documented by: Ondansetron HCl (Ondansetron Inj 2 Mg/Ml 2 Ml Vial) 4 mg IV Q6H PRN PRN Reason: Nausea Stop: 10/24/21 00:49 Polyethylene Glycol (Polyethylene (Miralax) 17 Gm Pack) 17 gm PO DAILY [facility] Stop: 10/30/21 09:29 Last Admin: 10/06/21 09:26 Dose: Not Given Documented by: Trihexyphenidyl HCl (Trihexyphenidyl Hcl 5 Mg Tab) 3.75 mg PO BID [facility] Stop: 10/29/21 08:59 Last Admin: 10/06/21 09:26 Dose: 3.75 mg Documented by: (1) Ascites Ascites type: malignant Qualified Code(s): R18.0 - Malignant ascites (2) Abdominal pain Abdominal location: generalized Qualified Code(s): R10.84 - Generalized abdominal pain
[2021-10-06] MEDS: MoRPHine SULFATE 5 MG/0.25 ML UDP PO PRN (19:35)
[2021-10-07] MEDS: FLUPHENAZINE 5 MG PO SCH ×2 (08:43→20:07)
[2021-10-07] MEDS: FAMOTIDINE 20 MG in SYRINGE 3 ML IV SCH ×2 (08:43→20:08)
[2021-10-07] MEDS: TRIHEXYPHENIDYL HCL 5 MG TAB PO SCH ×2 (08:43→20:06)
[2021-10-07] MEDS: FUROSEMIDE 40 MG TAB PO SCH (08:44)
[2021-10-07] MEDS: POLYETHYLENE (MIRALAX) 17 GM PACK PO SCH (08:44)
--- NOTE | 2021-10-07 14:02 | Hospitalist Progress Note ---
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 Flex sig 09/26 showed large near obstructing mass in sigmoid colon, biopsied. Palliative care met with family and patient on 09/27 and they have requested home hospice. 09/28, after discussion with patient she was transitioned to comfort measures while in the hospital awaiting placement Has rectal tube in situ Remains medically stable and awaiting placement Awaiting placement-in a facility with hospice (2) Ascites: Plan: Continue lasix 40mg PO daily to help with management 09/25 Paracentesis 4.5L removed 09/27- 5.1 L removed 10/01 4.5L removed Acetic fluid cytology is negative for any malignancy She will likely need weekly palliative paracentesis. After discharge, will need to be arranged through GI office Abdomen is distended but not tense and not tender Status post placement of Pleurx catheter in peritoneal cavity for continuous drainage of acetic fluid Has been feeling much better with decreasing abdominal discomfort following insertion of Pleurx catheter Advised to have drainage of peritoneal fluid every other day Required additional drainage of peritoneal fluid-taken out 2 L Has been feeling better following paracentesis (3) Abnormal CT of the abdomen: (4) Abdominal pain: Plan: Has abdominal discomfort without any significant pain She has not been using much of narcotics pain medication Denies any significant pain (5) Liver metastases: Plan: Secondary to adenocarcinoma of the colon (6) Hypokalemia: (7) Schizophrenia: Plan: Continue home med (8) Comfort measures only status: Plan: Disposition- Family will be unable to care for patient at home. CM will work on placing her into a facility for hospice. While here, patient will be comfort measures Discussed with the niece about prognosis Awaiting placement The family members will not be able to take care of her at home and the placement is going to be difficult Discussed with the daughter-awaiting placement Admission and Anticipated Discharge Date Admission Date: September 23, 2021 Subjective 10/03/2021 Patient was seen and examined in medical floor She is Kosovan-speaking and discussed with the niece She does have abdominal discomfort without any nausea or vomiting 10/04/2021 The patient was seen and examined in medical floor She has abdominal discomfort but denies any significant pain She refused to have COVID-19 vaccination Discussed with the niece who mentioned that she cannot be taken care at home 10/05/2021 The patient was seen and examined in medical floor in presence of the daughter She has been stable and complains to have minimal abdominal discomfort No significant pain 10/06/2021 The patient was seen and examined in medical floor in presence of the daughter She remains stable and complains to have minimal distention of the abdomen with discomfort Denies any significant pain 10/07/2021 The patient was seen and examined in medical floor She has had some discomfort in the abdomen and following drainage of peritoneal fluid the condition improved Has minimal discomfort as before without any significant pain Review of Systems Review of Systems: Other Physical Exam Physical Exam: Lying in bed with minimal discomfort due to abdominal distention Constitutional: well developed, well nourished, + ill appearing and + obese Eyes: PERRL, conjunctivae normal, anicteric sclerae ENMT: external ear and nose normal, oropharynx normal Neck: trachea midline, no thyromegaly Respiratory: no respiratory distress Auscultation: lungs clear to auscultation bilaterally and + diminished lung sounds (At the bases) Cardiovascular: Rate/Rhythm: regular rate, regular rhythm and + tachycardic Heart Sounds: normal S1 and normal S2; no murmur Extremities: + edema (Trace edema bilaterally) Gastrointestinal (Abdomen): Inspection/Auscultation: + abdomen distended (Distention has decreased since insertion of the Pleurx catheter) and normal bowel sounds (Diminished) Percussion/Palpation: + abdomen tender and abdomen soft Musculoskeletal: No acute arthritis in any joint Neurologic: Alert, awake and oriented. Generally weak (1) Ascites Ascites type: malignant Qualified Code(s): R18.0 - Malignant ascites (2) Abdominal pain Abdominal location: generalized Qualified Code(s): R10.84 - Generalized abdominal pain
[2021-10-07] MEDS: MoRPHine SULFATE 5 MG/0.25 ML UDP PO PRN (19:22)
[2021-10-08] MEDS: FUROSEMIDE 40 MG TAB PO SCH (08:32)
[2021-10-08] MEDS: FAMOTIDINE 20 MG in SYRINGE 3 ML IV SCH ×2 (08:32→20:22)
[2021-10-08] MEDS: TRIHEXYPHENIDYL HCL 5 MG TAB PO SCH ×2 (08:33→20:22)
[2021-10-08] MEDS: POLYETHYLENE (MIRALAX) 17 GM PACK PO SCH (08:33)
[2021-10-08] MEDS: FLUPHENAZINE 5 MG PO SCH ×2 (08:33→20:23)
[2021-10-08 09:56] LABS: Basophils # (auto) 0.04 K/uL (0-0.2); Basophils % (auto) 0.2 %; Eosinophils # (auto) 0.07 K/uL (0-0.5); Eosinophils % (auto) 0.4 %; Hematocrit (blood only) 35.2 % (37-47); Hemoglobin 11.7 g/dL (12.0-16.0); Immature Granulocytes # (auto) 0.21 K/uL (0.00-0.02); Immature Granulocytes % (auto) 1.3 %; Lymphocytes # (auto) 1.67 K/uL (1.2-3.4); Lymphocytes % (auto) 10.1 %; Mean Corpuscular Hemoglobin 27.9 pg (25-34); Mean Corpuscular Hgb Conc 33.2 g/dL (32-36); Mean Platelet Volume 10.2 fL (7.4-10.4); Monocytes # (auto) 1.11 K/uL (0.11-0.59); Monocytes % (auto) 6.7 %; Neutrophils # (auto) 13.43 K/uL (1.4-6.5); Neutrophils % (auto) 81.3 %; Platelet Count 576 K/uL (130-400); RDW Coefficient of Variation 16.4 % (11.5-14.5); RDW Standard Deviation 49.7 fL (36.4-46.3); Red Blood Count 4.19 M/uL (4.2-5.4); White Blood Count 16.53 K/uL (4.8-10.8)
[2021-10-08 10:24] LABS: Albumin Level 3.5 gm/dl (3.4-5.0); BUN Creatinine Ratio 26.1 (10-20); Bilirubin,Total 2.4 mg/dl (0.2-1.0); Calcium 9.6 mg/dl (8.5-10.1); Creatinine Clr Calc Pharmacy 66.6 ml/min; Est GFR (African American) 60.3 ml/min; Globulin 3.6 gm/dl (2.5-4.0); Potassium 4.9 mmol/L (3.5-5.1); Total Protein 7.1 gm/dl (6.0-8.3)
[2021-10-08] MEDS: MoRPHine SULFATE 5 MG/0.25 ML UDP PO PRN ×2 (15:07→19:33)
--- NOTE | 2021-10-08 21:48 | Hospitalist Progress Note ---
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 Flex sig 09/26 showed large near obstructing mass in sigmoid colon, biopsied. Palliative care met with family and patient on 09/27 and they have requested home hospice. 09/28, after discussion with patient she was transitioned to comfort measures while in the hospital awaiting placement Has rectal tube in situ Remains medically stable and awaiting placement Awaiting placement-in a facility with hospice (2) Ascites: Plan: Continue lasix 40mg PO daily to help with management 09/25 Paracentesis 4.5L removed 09/27- 5.1 L removed 10/01 4.5L removed Acetic fluid cytology is negative for any malignancy She will likely need weekly palliative paracentesis. After discharge, will need to be arranged through GI office Abdomen is distended but not tense and not tender Status post placement of Pleurx catheter in peritoneal cavity for continuous drainage of acetic fluid Has been feeling much better with decreasing abdominal discomfort following insertion of Pleurx catheter Advised to have drainage of peritoneal fluid every other day Required additional drainage of peritoneal fluid-taken out 2 L Has been feeling better following paracentesis (3) Abnormal CT of the abdomen: (4) Abdominal pain: Plan: Has abdominal discomfort without any significant pain She has not been using much of narcotics pain medication Denies any significant pain (5) Liver metastases: Plan: Secondary to adenocarcinoma of the colon (6) Hypokalemia: (7) Schizophrenia: Plan: Continue home med (8) Comfort measures only status: Plan: Disposition- Family will be unable to care for patient at home. CM will work on placing her into a facility for hospice. While here, patient will be comfort measures Discussed with the niece about prognosis Awaiting placement The family members will not be able to take care of her at home and the placement is going to be difficult Discussed with niece-awaiting placement Admission and Anticipated Discharge Date Admission Date: September 23, 2021 Subjective Pt was seen and evaluate for follow up of ascites Lying in bed with no acute distress I was able to speak to her niece who was able to translate for her Patient niece said patient catheter was leaking, as per nurse there was no report of leaking from the catheter Patient denied any chest pain, palpitation, dizziness shortness of breath. Physical Exam Physical Exam: General- No acute distress Head- atraumatic Eyes- PERRL, EOMI, ENT- oropharynx clear Neck- supple, no JVD Lungs- +diminished BS Heart- regular rhythm; no murmur Abdomen- +ascites, +distended, +Pleurx catheter Extremities- no calf tenderness Neuro- alert, oriented x 3; PERRL, EOMI; no facial palsy; no dysarthria Skin- warm & dry (1) Ascites Ascites type: malignant Qualified Code(s): R18.0 - Malignant ascites (2) Abdominal pain Abdominal location: generalized Qualified Code(s): R10.84 - Generalized abdominal pain
[2021-10-09] MEDS: FAMOTIDINE 20 MG in SYRINGE 3 ML IV SCH ×2 (08:39→19:56)
[2021-10-09] MEDS: FUROSEMIDE 40 MG TAB PO SCH (08:39)
[2021-10-09] MEDS: FLUPHENAZINE 5 MG PO SCH ×2 (08:39→19:43)
[2021-10-09] MEDS: TRIHEXYPHENIDYL HCL 5 MG TAB PO SCH ×2 (08:40→19:44)
[2021-10-09] MEDS: POLYETHYLENE (MIRALAX) 17 GM PACK PO SCH (08:41)
[2021-10-09] MEDS ORDERED: traMADol HCL 50 MG TABLET PO PRN (15:48)
--- NOTE | 2021-10-09 18:04 | Hospitalist Progress Note ---
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 Flex sig 09/26 showed large near obstructing mass in sigmoid colon, biopsied. Palliative care met with family and patient on 09/27 and they have requested home hospice. 09/28, after discussion with patient she was transitioned to comfort measures while in the hospital awaiting placement Has rectal tube in situ Remains medically stable and awaiting placement Awaiting placement-in a facility with hospice (2) Ascites: Plan: Continue lasix 40mg PO daily to help with management 09/25 Paracentesis 4.5L removed 09/27- 5.1 L removed 10/01 4.5L removed Acetic fluid cytology is negative for any malignancy She will likely need weekly palliative paracentesis. After discharge, will need to be arranged through GI office Abdomen is distended but not tense and not tender Status post placement of Pleurx catheter in peritoneal cavity for continuous drainage of acetic fluid Has been feeling much better with decreasing abdominal discomfort following insertion of Pleurx catheter Advised to have drainage of peritoneal fluid every other day Required additional drainage of peritoneal fluid-taken out 2 L Has been feeling better following paracentesis (3) Abnormal CT of the abdomen: (4) Abdominal pain: Plan: Has abdominal discomfort without any significant pain She has not been using much of narcotics pain medication Denies any significant pain (5) Liver metastases: Plan: Secondary to adenocarcinoma of the colon (6) Hypokalemia: (7) Schizophrenia: Plan: Continue home med (8) Comfort measures only status: Plan: Disposition- Family will be unable to care for patient at home. CM will work on placing her into a facility for hospice. While here, patient will be comfort measures Discussed with the niece about prognosis Awaiting placement The family members will not be able to take care of her at home and the placement is going to be difficult Discussed with sister today - awaiting placement Admission and Anticipated Discharge Date Admission Date: September 23, 2021 Subjective Pt was seen and evaluate for follow up of ascites Lying in bed with no acute distress with sister at bedside Her sister was able to translate for her Continue waiting for placement Case discussed with case management that continue to work to find her a place Patient denied any chest pain, palpitation, dizziness shortness of breath. Review of Systems Review of Systems: All systems reviewed & are unremarkable except as noted in Subjective Physical Exam Physical Exam: General- No acute distress Head- atraumatic Eyes- PERRL, EOMI, ENT- oropharynx clear Neck- supple, no JVD Lungs- +diminished BS Heart- regular rhythm; no murmur Abdomen- +ascites, +distended, +Pleurx catheter Extremities- no calf tenderness Neuro- alert, oriented x 3; PERRL, EOMI; no facial palsy; no dysarthria Skin- warm & dry (1) Ascites Ascites type: malignant Qualified Code(s): R18.0 - Malignant ascites (2) Abdominal pain Abdominal location: generalized Qualified Code(s): R10.84 - Generalized abdominal pain
[2021-10-10] MEDS: POLYETHYLENE (MIRALAX) 17 GM PACK PO SCH (07:27)
[2021-10-10] MEDS: FAMOTIDINE 20 MG in SYRINGE 3 ML IV SCH ×2 (08:50→20:07)
[2021-10-10] MEDS: FUROSEMIDE 40 MG TAB PO SCH (08:50)
[2021-10-10] MEDS: TRIHEXYPHENIDYL HCL 5 MG TAB PO SCH ×2 (08:50→20:05)
[2021-10-10] MEDS: FLUPHENAZINE 5 MG PO SCH ×2 (08:51→20:05)
[2021-10-10] MEDS: ACETAMINOPHEN 325 MG TAB PO PRN (19:59)
--- NOTE | 2021-10-10 22:48 | Hospitalist Progress Note ---
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 Flex sig 09/26 showed large near obstructing mass in sigmoid colon, biopsied. Palliative care met with family and patient on 09/27 and they have requested home hospice. 09/28, after discussion with patient she was transitioned to comfort measures while in the hospital awaiting placement Has rectal tube in situ Remains medically stable and awaiting placement Awaiting placement-in a facility with hospice (2) Ascites: Plan: Continue lasix 40mg PO daily to help with management 09/25 Paracentesis 4.5L removed 09/27- 5.1 L removed 10/01 4.5L removed Acetic fluid cytology is negative for any malignancy She will likely need weekly palliative paracentesis. After discharge, will need to be arranged through GI office Abdomen is distended but not tense and not tender Status post placement of Pleurx catheter in peritoneal cavity for continuous drainage of acetic fluid Has been feeling much better with decreasing abdominal discomfort following insertion of Pleurx catheter Advised to have drainage of peritoneal fluid every other day Required additional drainage of peritoneal fluid-taken out 2 L Has been feeling better following paracentesis (3) Abnormal CT of the abdomen: (4) Abdominal pain: Plan: Has abdominal discomfort without any significant pain She has not been using much of narcotics pain medication Denies any significant pain (5) Liver metastases: Plan: Secondary to adenocarcinoma of the colon (6) Hypokalemia: (7) Schizophrenia: Plan: Continue home med (8) Comfort measures only status: Plan: Disposition- Family will be unable to care for patient at home. CM will work on placing her into a facility for hospice. While here, patient will be comfort measures Discussed with the niece about prognosis Awaiting placement The family members will not be able to take care of her at home and the placement is going to be difficult Discussed with sister today - awaiting placement Admission and Anticipated Discharge Date Admission Date: September 23, 2021 Subjective Pt was seen and examined for follow up of ascites Lying in bed with no acute distress with sister at bedside Pt was resting comfortable Sister does not want pt to get any narcotic due to risk of hallucination Patient denied any chest pain, palpitation, dizziness shortness of breath. Review of Systems Review of Systems: All systems reviewed & are unremarkable except as noted in Subjective Physical Exam Physical Exam: General- No acute distress Head- atraumatic Eyes- PERRL, EOMI, ENT- oropharynx clear Neck- supple, no JVD Lungs- +diminished BS Heart- regular rhythm; no murmur Abdomen- +ascites, +distended, +Pleurx catheter Extremities- no calf tenderness Neuro- alert, oriented x 3; PERRL, EOMI; no facial palsy; no dysarthria Skin- warm & dry (1) Ascites Ascites type: malignant Qualified Code(s): R18.0 - Malignant ascites (2) Abdominal pain Abdominal location: generalized Qualified Code(s): R10.84 - Generalized abdominal pain
[2021-10-11] MEDS: POLYETHYLENE (MIRALAX) 17 GM PACK PO SCH (07:24)
[2021-10-11] MEDS: FUROSEMIDE 40 MG TAB PO SCH (09:00)
[2021-10-11] MEDS: FAMOTIDINE 20 MG in SYRINGE 3 ML IV SCH ×2 (09:00→22:42)
[2021-10-11] MEDS: TRIHEXYPHENIDYL HCL 5 MG TAB PO SCH ×2 (09:00→22:43)
[2021-10-11] MEDS: FLUPHENAZINE 5 MG PO SCH ×2 (09:01→22:43)
[2021-10-11] MEDS ORDERED: LOPERAMIDE HCL 2 MG CAP PO PRN (09:54)
--- NOTE | 2021-10-11 10:23 | Palliative Care Progress Note ---
Date of Service October 11, 2021 Assessment & Plan (1) Palliative care encounter: Plan: I met with Emy in her room. She was AAOx3 and in no apparent distress. No family was present during my visit. I was able to call Josette at [phone] nd talk at length. We discussed her disposition and concerns with the family caring for the patient at home. They have decided that taking the patient home is not an option for her at this time. I discussed the possibility of her being accepted at [facility] and discussed the option of having hospice support in addition to the care at [facility]. They were agreeable to this. They do not have a preference on hospice agencies, but prefer to use one that [facility] is most comfortable with. POLST form completed as outlined below. (2) Ascites: Plan: Related to tumor burdon. Increased distention. Last paracentesis done 10/01 - 4.5L removed. Pt has abdominal drain for palliation purposes, being drained weekly. I did set expectation with family that the distention/ascites and abdominal pain will increase as tumor burden progresses. (3) Ovarian mass, left: Plan: Increased abdominal distention. Renal function ok. Last Creatinine 0.59 Do think it would be beneficial to schedule opioids as it does appear patient is uncomfortable, and she states she is. Discussed with sister and patient. Neither are receptive to do so. Pt with tachycardia in 100-115 range, can be related to pain. Continue to have Dilaudid 0.25mg IV Q4 PRN (4) POLST (Physician Orders for Life-Sustaining Treatment): Plan: POLST completed over the phone with the patients niece, Josette. She was listed as the main contact on the form. POLST review as follows: DNR/DNI, CHIEF RADIOLOGY, trial abx, no artificial nutrition/hydration. Original and copy placed on the chart. (5) Schizophrenia: Plan: Pt with diagnosed schizophrenia. Discussed the above with the family preservation caseworker. PASSR documentation reviewed. [employer] will review with point of contact, but does not appear there have been any challenges related to her schizophrenia, including no psych inpt stays, no SI/SA, no psych referrals, etc. Pt takes Fluphenazine PO BID and this is a home med. As patient declines, if she is no longer able to swallow PO meds, including her psych meds, if there are behavioral disturbance, this individual will be at end of life and comfort medications will be used in place of her routine meds. Admission and Anticipated Discharge Date Admission Date: September 23, 2021 Subjective Pt seen for follow up today. Pt lying in her hospital bed in no apparent distress. She denied pain or difficulty with breathing. No family at bedside. Plan for transition to SNF when accepted POLST completed. See A/P for further details. Review of Systems Review of Systems: Lueders System Assessment Scale: Pain: 1/3 SOB: 1/3 Nausea: 0/3 Tiredness: 2/3 Palliative Performance Scale: 30% Physical Exam Constitutional: + frail appearing and cooperative ENMT: Mouth: + dry oral mucous membranes Respiratory: normal respiratory effort Auscultation: lungs clear to auscultation bilaterally Cardiovascular: Rate/Rhythm: regular rate and regular rhythm Heart Sounds: normal S1 and normal S2 Gastrointestinal (Abdomen): Inspection/Auscultation: abdomen normal to inspection, + abdomen distended and normal bowel sounds Right sided abdominal drain for comfort Skin: + pallor Psychiatric: Orientation: alert and oriented x 3 Insight: + limited insight Judgement: + limited judgement PG Care Time/CCT Total # of Minutes Spent Total Time Spent with Patient: Total time spent is greater than 50% in coordination of care (as documented) at patient's floor/unit and/or counseling patient: 35 minutes Coding Level of Care Code 54202 Subseq Hosp Care Lvl 3 Diagnoses Palliative care encounter Z51.5 Ascites R18.8 Ovarian mass, left N83.8 POLST (Physician Orders for Life-Sustaining Treatment) Z78.9 Schizophrenia F20.9 Time Spent (min) 35
[2021-10-12] MEDS: FAMOTIDINE 20 MG in SYRINGE 3 ML IV SCH (09:32)
[2021-10-12] MEDS: POLYETHYLENE (MIRALAX) 17 GM PACK PO SCH (09:32)
[2021-10-12] MEDS: FLUPHENAZINE 5 MG PO SCH ×2 (09:32→22:06)
[2021-10-12] MEDS: TRIHEXYPHENIDYL HCL 5 MG TAB PO SCH ×2 (09:33→22:07)
[2021-10-12] MEDS: FUROSEMIDE 40 MG TAB PO SCH (11:37)
--- NOTE | 2021-10-12 21:44 | Hospitalist Progress Note ---
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 Flex sig 09/26 showed large near obstructing mass in sigmoid colon, biopsied. Palliative care met with family and patient on 09/27 and they have requested home hospice. 09/28, after discussion with patient she was transitioned to comfort measures while in the hospital awaiting placement Has rectal tube in situ Remains medically stable and awaiting placement Awaiting placement-in a facility with hospice (2) Ascites: Plan: Continue lasix 40mg PO daily to help with management 09/25 Paracentesis 4.5L removed 09/27- 5.1 L removed 10/01 4.5L removed Acetic fluid cytology is negative for any malignancy She will likely need weekly palliative paracentesis. After discharge, will need to be arranged through GI office Abdomen is distended but not tense and not tender Status post placement of Pleurx catheter in peritoneal cavity for continuous drainage of acetic fluid Has been feeling much better with decreasing abdominal discomfort following insertion of Pleurx catheter Advised to have drainage of peritoneal fluid every other day Required additional drainage of peritoneal fluid-taken out 2 L Has been feeling better following paracentesis (3) Abnormal CT of the abdomen: (4) Abdominal pain: Plan: Has abdominal discomfort without any significant pain She has not been using much of narcotics pain medication Denies any significant pain (5) Liver metastases: Plan: Secondary to adenocarcinoma of the colon (6) Hypokalemia: (7) Schizophrenia: Plan: Continue home med (8) Comfort measures only status: Plan: Disposition- Family will be unable to care for patient at home. CM will work on placing her into a facility for hospice. While here, patient will be comfort measures Discussed with the niece about prognosis Awaiting placement The family members will not be able to take care of her at home and the placement is going to be difficult Discussed with sister today - awaiting placement Admission and Anticipated Discharge Date Admission Date: September 23, 2021 Subjective Pt was seen and examined for follow up of ascites Lying in bed with no acute distress, resting comfortable Spoke to case management about a facility that might be able to accept the patient possible next week Patient denied any chest pain, palpitation, dizziness shortness of breath. Review of Systems Review of Systems: All systems reviewed & are unremarkable except as noted in Subjective Physical Exam Physical Exam: General- No acute distress Head- atraumatic Eyes- PERRL, EOMI, ENT- oropharynx clear Neck- supple, no JVD Lungs- +diminished BS Heart- regular rhythm; no murmur Abdomen- +ascites, +distended, +Pleurx catheter Extremities- no calf tenderness Neuro- alert, oriented x 3; PERRL, EOMI; no facial palsy; no dysarthria Skin- warm & dry (1) Ascites Ascites type: malignant Qualified Code(s): R18.0 - Malignant ascites (2) Abdominal pain Abdominal location: generalized Qualified Code(s): R10.84 - Generalized abdominal pain
[2021-10-12] MEDS ORDERED: POLYETHYLENE (MIRALAX) 17 GM PACK PO PRN (21:49)
[2021-10-13] MEDS: FAMOTIDINE 20 MG in SYRINGE 3 ML IV SCH (04:33)
[2021-10-13] MEDS: FUROSEMIDE 40 MG TAB PO SCH (09:15)
[2021-10-13] MEDS: TRIHEXYPHENIDYL HCL 5 MG TAB PO SCH ×2 (09:17→20:38)
[2021-10-13] MEDS: FLUPHENAZINE 5 MG PO SCH ×2 (09:18→20:38)
[2021-10-13] MEDS: FAMOTIDINE 20 MG TAB PO SCH ×2 (12:09→20:38)
[2021-10-13] MEDS: ACETAMINOPHEN 325 MG TAB PO PRN (20:36)
[2021-10-14] MEDS: FUROSEMIDE 40 MG TAB PO SCH (09:28)
[2021-10-14] MEDS: FAMOTIDINE 20 MG TAB PO SCH ×2 (09:28→20:41)
[2021-10-14] MEDS: FLUPHENAZINE 5 MG PO SCH ×2 (09:29→20:38)
[2021-10-14] MEDS: TRIHEXYPHENIDYL HCL 5 MG TAB PO SCH ×2 (09:30→20:39)
[2021-10-14] MEDS: ACETAMINOPHEN 325 MG TAB PO PRN (18:31)
--- NOTE | 2021-10-14 23:34 | Hospitalist Progress Note ---
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 Flex sig 09/26 showed large near obstructing mass in sigmoid colon, biopsied. Palliative care met with family and patient on 09/27 and they have requested home hospice. 09/28, after discussion with patient she was transitioned to comfort measures while in the hospital awaiting placement Has rectal tube in situ that was removed yesterday Remains medically stable and awaiting placement Awaiting placement-in a facility with hospice (2) Ascites: Plan: Continue lasix 40mg PO daily to help with management 09/25 Paracentesis 4.5L removed 09/27- 5.1 L removed 10/01 4.5L removed Acetic fluid cytology is negative for any malignancy She will likely need weekly palliative paracentesis. After discharge, will need to be arranged through GI office Abdomen is distended but not tense and not tender Status post placement of Pleurx catheter in peritoneal cavity for continuous drainage of acetic fluid Has been feeling much better with decreasing abdominal discomfort following insertion of Pleurx catheter Advised to have drainage of peritoneal fluid every other day Required additional drainage of peritoneal fluid-taken out 2 L Has been feeling better following paracentesis (3) Abnormal CT of the abdomen: (4) Abdominal pain: Plan: Has abdominal discomfort without any significant pain She has not been using much of narcotics pain medication Denies any significant pain (5) Liver metastases: Plan: Secondary to adenocarcinoma of the colon (6) Hypokalemia: (7) Schizophrenia: Plan: Continue home med (8) Comfort measures only status: Plan: Disposition- Family will be unable to care for patient at home. CM will work on placing her into a facility for hospice. While here, patient will be comfort measures Discussed with the niece about prognosis Awaiting placement The family members will not be able to take care of her at home and the placement is going to be difficult Discussed with sister today - awaiting placement Admission and Anticipated Discharge Date Admission Date: September 23, 2021 Subjective Pt was seen and examined for follow up of ascites Lying in bed with no acute distress, resting comfortable Patient denied any chest pain, palpitation, dizziness shortness of breath. Review of Systems Review of Systems: All systems reviewed & are unremarkable except as noted in Subjective Physical Exam Physical Exam: General- No acute distress Head- atraumatic Eyes- PERRL, EOMI, ENT- oropharynx clear Neck- supple, no JVD Lungs- +diminished BS Heart- regular rhythm; no murmur Abdomen- +ascites, +distended, +Pleurx catheter Extremities- no calf tenderness Neuro- alert, oriented x 3; PERRL, EOMI; no facial palsy; no dysarthria Skin- warm & dry (1) Ascites Ascites type: malignant Qualified Code(s): R18.0 - Malignant ascites (2) Abdominal pain Abdominal location: generalized Qualified Code(s): R10.84 - Generalized abdominal pain
[2021-10-15] MEDS: ACETAMINOPHEN 325 MG TAB PO PRN (02:50)
[2021-10-15] MEDS: TRIHEXYPHENIDYL HCL 5 MG TAB PO SCH ×2 (08:18→22:39)
[2021-10-15] MEDS: FAMOTIDINE 20 MG TAB PO SCH ×2 (08:18→22:39)
[2021-10-15] MEDS: FLUPHENAZINE 5 MG PO SCH ×2 (08:18→22:39)
[2021-10-15] MEDS: FUROSEMIDE 40 MG TAB PO SCH (08:18)
[2021-10-15] MEDS ORDERED: ONDANSETRON 4 MG OD TAB PO PRN (16:50)
--- NOTE | 2021-10-15 21:53 | Hospitalist Progress Note ---
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 Flex sig 09/26 showed large near obstructing mass in sigmoid colon, biopsied. Palliative care met with family and patient on 09/27 and they have requested home hospice. 09/28, after discussion with patient she was transitioned to comfort measures while in the hospital awaiting placement Has rectal tube in situ that was removed yesterday Remains medically stable and awaiting placement Awaiting placement-in a facility with hospice (2) Ascites: Plan: Continue lasix 40mg PO daily to help with management 09/25 Paracentesis 4.5L removed 09/27- 5.1 L removed 10/01 4.5L removed Acetic fluid cytology is negative for any malignancy She will likely need weekly palliative paracentesis. After discharge, will need to be arranged through GI office Abdomen is distended but not tense and not tender Status post placement of Pleurx catheter in peritoneal cavity for continuous drainage of acetic fluid Has been feeling much better with decreasing abdominal discomfort following insertion of Pleurx catheter Advised to have drainage of peritoneal fluid every other day Required additional drainage of peritoneal fluid-taken out 2 L Has been feeling better following paracentesis (3) Abnormal CT of the abdomen: (4) Abdominal pain: Plan: Has abdominal discomfort without any significant pain She has not been using much of narcotics pain medication Denies any significant pain (5) Liver metastases: Plan: Secondary to adenocarcinoma of the colon (6) Hypokalemia: (7) Schizophrenia: Plan: Continue home med (8) Comfort measures only status: Plan: Disposition- Family will be unable to care for patient at home. CM will work on placing her into a facility for hospice. While here, patient will be comfort measures Discussed with the niece about prognosis Awaiting placement The family members will not be able to take care of her at home and the placement is going to be difficult Discussed with sister today - awaiting placement Admission and Anticipated Discharge Date Admission Date: September 23, 2021 Subjective Pt was seen and examined for follow up of ascites Lying in bed with no acute distress, resting comfortable with sister at bedside Sister said that pt did not eat much today because she felt nauseated Patient denied any chest pain, palpitation, dizziness shortness of breath. Review of Systems Review of Systems: All systems reviewed & are unremarkable except as noted in Subjective Physical Exam Physical Exam: General- No acute distress Head- atraumatic Eyes- PERRL, EOMI, ENT- oropharynx clear Neck- supple, no JVD Lungs- +diminished BS Heart- regular rhythm; no murmur Abdomen- +ascites, +distended, +Pleurx catheter Extremities- no calf tenderness Neuro- alert, oriented x 3; PERRL, EOMI; no facial palsy; no dysarthria Skin- warm & dry (1) Ascites Ascites type: malignant Qualified Code(s): R18.0 - Malignant ascites (2) Abdominal pain Abdominal location: generalized Qualified Code(s): R10.84 - Generalized abdominal pain
[2021-10-16] MEDS: FAMOTIDINE 20 MG TAB PO SCH ×2 (08:01→13:12)
[2021-10-16] MEDS: FUROSEMIDE 40 MG TAB PO SCH ×2 (08:02→13:13)
[2021-10-16] MEDS: TRIHEXYPHENIDYL HCL 5 MG TAB PO SCH ×2 (08:02→13:13)
[2021-10-16] MEDS: FLUPHENAZINE 5 MG PO SCH ×2 (08:02→13:13)
--- NOTE | 2021-10-16 17:13 | Hospitalist Progress Note ---
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 Flex sig 09/26 showed large near obstructing mass in sigmoid colon, biopsied. Palliative care met with family and patient on 09/27 and they have requested home hospice. 09/28, after discussion with patient she was transitioned to comfort measures while in the hospital awaiting placement Has rectal tube in situ that was removed yesterday Remains medically stable and awaiting placement Awaiting placement-in a facility with hospice (2) Ascites: Plan: Continue lasix 40mg PO daily to help with management 09/25 Paracentesis 4.5L removed 09/27- 5.1 L removed 10/01 4.5L removed Acetic fluid cytology is negative for any malignancy She will likely need weekly palliative paracentesis. After discharge, will need to be arranged through GI office Abdomen is distended but not tense and not tender Status post placement of Pleurx catheter in peritoneal cavity for continuous drainage of acetic fluid Has been feeling much better with decreasing abdominal discomfort following insertion of Pleurx catheter Advised to have drainage of peritoneal fluid every other day Required additional drainage of peritoneal fluid-taken out 2 L Has been feeling better following paracentesis (3) Abnormal CT of the abdomen: (4) Abdominal pain: Plan: Has abdominal discomfort without any significant pain She has not been using much of narcotics pain medication Denies any significant pain (5) Liver metastases: Plan: Secondary to adenocarcinoma of the colon (6) Hypokalemia: (7) Schizophrenia: Plan: Continue home med (8) Comfort measures only status: Plan: Disposition- Family will be unable to care for patient at home. CM will work on placing her into a facility for hospice. While here, patient will be comfort measures Discussed with the niece about prognosis Awaiting placement The family members will not be able to take care of her at home and the placement is going to be difficult Discussed with sister today Denies [facility] family would like her to stay in the hospital to since the other facility is 3hrs away from the hospital Admission and Anticipated Discharge Date Admission Date: September 23, 2021 Subjective Pt was seen and examined for follow up of ascites Lying in bed with no acute distress, resting comfortable with sister at bedside Sister would like patient to stay in the hospital to since [facility] denied her She said that they don't want her to discharge at the facility that is 3hr away and they cannot take her home Case management was there and discussed with sister in length about options Patient denied any chest pain, palpitation, dizziness shortness of breath. Review of Systems Review of Systems: All systems reviewed & are unremarkable except as noted in Subjective Physical Exam Physical Exam: General- No acute distress Head- atraumatic Eyes- PERRL, EOMI, ENT- oropharynx clear Neck- supple, no JVD Lungs- +diminished BS Heart- regular rhythm; no murmur Abdomen- +ascites, +distended, +Pleurx catheter Extremities- no calf tenderness Neuro- alert, oriented x 3; PERRL, EOMI; no facial palsy; no dysarthria Skin- warm & dry (1) Ascites Ascites type: malignant Qualified Code(s): R18.0 - Malignant ascites (2) Abdominal pain Abdominal location: generalized Qualified Code(s): R10.84 - Generalized abdominal pain
[2021-10-16] MEDS: ACETAMINOPHEN 325 MG TAB PO PRN (17:50)
--- NOTE | 2021-10-17 07:57 | Death Pronouncement Note ---
Date of Service October 16, 2021 Pronouncement Note Admission Date September 23, 2021 Date and Time of Date of : 10/16/21 Time of : 19:37 Additional Data Confirmation of : no pulse, no respirations, no heart sounds and pupils fixed and dilated Family: at bedside Attending physician: Jerome Drew MD
== END 2021-10-16 21:56 | disposition expired | DRG 375 ==
LOC: ED 16:58 → 3N 22:59 → SUATTDRO 22:59 → 3N 09-24 00:14
DX: R32 Unspecified urinary incontinence; K92.1 Melena; Z66 Do not resuscitate; R19.7 Diarrhea, unspecified; R73.01 Impaired fasting glucose; R18.8 Other ascites; E87.6 Hypokalemia; Z75.1 Person awaiting admission to adequate facility elsewhere; C78.7 Secondary malignant neoplasm of liver and intrahepatic bile duct; Z79.899 Other long term (current) drug therapy; Z68.35 Body mass index [BMI] 35.0-35.9, adult; C18.7 Malignant neoplasm of sigmoid colon; K55.8 Other vascular disorders of intestine; D17.79 Benign lipomatous neoplasm of other sites; F20.9 Schizophrenia, unspecified; R15.9 Full incontinence of feces; Z51.5 Encounter for palliative care; E66.9 Obesity, unspecified